=== PATIENT | female | born 1990 | race Caucasian/White ===

== ENCOUNTER → 2017-01-17 | Outpatient (CLI) | payer OTHER ==
[~2017-01-17] MED LIST: ASCA500; CHOLTAB3 PO; FERR325T51 PO; FING1CAP; GADAVIST IV PRN; MELA1TAB5 PO; MODA1TAB PO; SERT50TA PO; b 12 PO
--- NOTE | 2017-01-17 19:41 | DIAGNOSTIC IMAGING REPORT ---
Brain MRI WITH AND WITHOUT CONTRAST HISTORY: Demyelinating disorder G35 Multiple sclerosis TECHNIQUE: Multiplanar multisequence MRI of the brain was performed both before and after the intravenous administration of contrast. COMPARISON STUDY: 07/02/2016 FINDINGS: Multiple foci of increased signal within the periventricular deep white matter regions. Several cortical foci of increased signal are also present. These primarily are stable. There is a new focus of increased signal within the right optic radiations. This shows evidence for postcontrast enhancement. No additional foci of enhancement are appreciated. All remaining foci appear to be generally stable. There is subtle variation in size but the neck appears is one of general stability. IMPRESSION: 1. Multiple foci of increased signal within the periventricular and deep white matter regions throughout both cerebral hemispheres. 2. These are in general stable overall, with a single small focus of new or interval postcontrast enhancement right optic radiations. 3. The appearance therefore is consistent with that of general stability with a new active focus of demyelination on the right . Electronically signed by: Xavier Brown M.D. 01/17/2017 7:39 PM Dictated Date/Time: 01/17/2017 7:32 PM
== END | disposition home or self-care (01) ==
LOC: C.MRI 18:34
PROVIDERS: ATTEND Psychiatry & Neurology Neurology
DX: G35 Multiple sclerosis (principal)

== ENCOUNTER → 2017-05-31 | Outpatient (CLI) | payer OTHER ==
--- NOTE | 2017-05-31 20:00 | DIAGNOSTIC IMAGING REPORT ---
BRAIN COMBO FOR MS HISTORY: Multiple sclerosis G35 Multiple [id number] TECHNIQUE: Multiplanar multisequence MRI of the brain was performed both before and after the intravenous administration of contrast. COMPARISON STUDY: 01/17/2017 FINDINGS: Generally stable exam with multiple foci of increased signal within the periventricular deep white matter regions. These in general appears stable. Current study shows no evidence for abnormal postcontrast enhancement. The enhancing focus previously described no longer enhances. No significant new or interval foci of increased signal. Ventricular system remains midline. Diffusion-weighted images are negative for an acute ischemic focus. IMPRESSION: Stable exam compared to the prior study with no new or interval findings of increased signal. No current evidence for abnormal postcontrast enhancement. The above report was generated using voice recognition software. It may contain grammatical, syntax or spelling errors. Electronically signed by: Xavier Brown M.D. 05/31/2017 7:58 PM Dictated Date/Time: 05/31/2017 7:57 PM
== END | disposition home or self-care (01) ==
LOC: C.MRI 07:06
PROVIDERS: ATTEND Psychiatry & Neurology Neurology
DX: G35 Multiple sclerosis (principal)

== ENCOUNTER 2022-06-09 07:41 | Inpatient (IN) ==
[2022-06-09] MEDS ORDERED: LIDOCAINE 1% LOCAL 20 ML VIAL INFIL PRN (08:14)
[2022-06-09] MEDS ORDERED: OXYTOCIN 30 UNITS/500 ML BAG IV PRN (08:21)
--- NOTE | 2022-06-09 08:41 | Obstetrical Progress Note ---
Date of Service June 09, 2022 Assessment & Plan (1) Mild preeclampsia: (2) Obesity affecting : (3) Gestational hypertension affecting eighth : (4) Encounter for induction of labor: Plan Plan - Patient admitted to labor and delivery for initiation of medical induction of labor - Patient received Richardson bulb placement yesterday, dislodged independently @ 06/08 - Patient is at D/E/S w/ inconsistent contractions, thus oxytocin augmentation of labor will be started per protocol - Once contractions are progressing, will consider ROM - Will anticipate epidural as contractions arise - Labs pending Admission and Anticipated Discharge Date Admission Date: June 09, 2022 Subjective Subjective: Consuelo is a 32 year old female currently 37w2d with PIERRE 06/28/22 based on LMP who is presenting to L&D today for induction of labor 2/2 gestational hypertension. She had a richardson bulb placed last evening which independently dislodged at 10 PM. She notes red-clumps and small amount of brown blood from the vagina since the richardson bulb was placed. She notes that she awakened every hour last night d/t pressure in her back, which is unusual for her. Patient denies headache or visual changes. She also denies any RUQ pain. She endorses ongoing lower extremity swelling and bilateral calf pain. Complications: mild pre-eclampsia, gestational hypertension, obesity Reason for Induction/: gestational hypertension Movement: Present Fluid Loss/ROM: None Bloody show/discharge: Mild, light brown blood and small red clumps from vagina since placement of richardson bulb External FHT and uterine monitor: Category 1, basline 145-150, good FHT variability, accelerations present w/o decelerations Last OB appointment: 06/08, regular care Labs: Blood Type: AB+ Antibody Screen: Negative Hg/Hct: 06/08 11.3/34.3, 06/09 11.5/34.6 WBC/Plt: 06/08 13.89/348, 06/09 13.57/319 Rubella: Immune RPR: Non-reactive Gonorrhea: Negative Chlamydia: Negative HIV: Negative HbSAg: Negative GBS: Negative Cff-DNA: Declined No COVID-19 or Flu vaccines Patient is having a baby girl. Patient and her partner plan to name the baby Brianna Chacon. Review of Systems Review of Systems: ROS: - Denies fever, chills, sweats - Endorses chronic dyspnea, ongoing throughout , w/o pleuritic pain - Denies chest pain, palpitations, or pressure - Denies breast pain - Denies dysuria - Denies headache or visual changes Physical Exam Physical Exam: Physical Exam: General: Alert, oriented. No acute distress. Cardiac: Regular rate and rhythm, no murmurs/rubs/gallops. Respiratory: CTAB, no wheezes/rales/rhonchi. Symmetrical chest rise. No respiratory distress. Abdomen: Gravid abdomen w/o TTP; FHT present Category 1; Position vertex by palpation Pelvic: Dilation _cm; Effacement _; Station _ per Dr Marsh Lower Extremities: 2+ lower extremity edema bilaterally. Calf pain present bilaterally. Daniel's negative bilaterally No rashes, lesions, or ecchymosis. Results & Data ([facility]) Vital Signs (Past 12 Hours) Vital Signs Temp Pulse Resp BP 06/09/22 08:11 36.7 C 103 H 16 123/93 06/09/22 07:51 103 H 123/93 Resident Activity Tracking Resident Involvement: Resident Care Provided Care Provided: OB Delivery
[2022-06-09 08:42] LABS: Hematocrit (blood only) 34.6 % (34.1-44.9); Hemoglobin 11.5 g/dl (12.0-16.0); Mean Corpuscular Hemoglobin 26.6 pg (25.0-34.0); Mean Corpuscular Hgb Conc 33.2 g/dL (32.0-36.0); Mean Corpuscular Volume 79.9 fL (80.0-100.0); Platelet Count 319 K/uL (130-400); RDW Coefficient of Variation 14.1 % (11.5-14.5); RDW Standard Deviation 40.8 fL (36.4-46.3); Red Blood Count 4.33 M/uL (3.93-5.22); White Blood Count 13.57 K/ul (4.8-10.8)
--- NOTE | 2022-06-09 08:57 | History & Physical Report ---
Date of Service June 09, 2022 Assessment & Plan (1) Gestational hypertension: (2) Obesity affecting : (3) Encounter for induction of labor: Plan - Patient admitted to labor and delivery for initiation of medical induction of labor d/t GHTN - Patient received Richardson bulb placement yesterday, dislodged independently @ 1999 - Patient is at 3/50/-2 w/o evidence of occasional small contractions, thus oxytocin augmentation of labor will be started per protocol (2x2) - Once contractions are progressing, will consider ROM - Will anticipate epidural as contractions arise - Labs pending, will check CMP (including LFTs) and Urinalysis Admission and Anticipated Discharge Date Admission Date: June 09, 2022 History of Present Illness Primary Care Provider: Gabriela Cuevas MD Subjective: Consuelo is a 32 year old female currently 37w2d with PIERRE 06/28/22 based on LMP who is presenting to L&D today for induction of labor 2/2 gestational hypertension. She had a richardson bulb placed last evening which independently dislodged at 10 PM. She notes red-clumps and small amount of brown blood from the vagina since the richardson bulb was placed. She notes that she awakened every hour last night d/t pressure in her back, which is unusual for her. Patient denies headache or visual changes. She also denies any RUQ pain. She endorses ongoing lower extremity swelling and bilateral calf pain. Complications: mild pre-eclampsia, gestational hypertension, obesity Reason for Induction/: gestational hypertension Movement: Present Fluid Loss/ROM: None Bloody show/discharge: Mild, light brown blood and small red clumps from vagina since placement of richardson bulb External FHT and uterine monitor: Category 1, baseline 145-150, good FHT variability, accelerations present w/o decelerations Last OB appointment: 06/08, regular care Labs: Blood Type: AB+ Antibody Screen: Negative Hg/Hct: 06/08 11.3/34.3, 06/09 11.5/34.6 WBC/Plt: 06/08 13.89/348, 06/09 13.57/319 Rubella: Immune RPR: Non-reactive Gonorrhea: Negative Chlamydia: Negative HIV: Negative HbSAg: Negative GBS: Negative Cff-DNA: Declined No COVID-19 or Flu vaccines FAMILY COUNSELOR Hx: No history of STD, last pap 1 year ago, no hx of abnormal pap, no prior Patient is having a baby girl. Patient and her partner plan to name the baby Brianna Chacon. Allergies Allergy/AdvReac Type Severity Reaction Status Date / Time bupropion Allergy Headache Verified 06/08/22 15:57 glatiramer (copolymer 1) Allergy heart Verified 06/08/22 15:57 [From Copaxone] palpitations Home Medications Medication Instructions Recorded Confirmed Type prenat.vits,tereso,tyn-hrbj-jfrmy 1 tab PO DAILY 11/11/21 06/08/22 History Patient History Medical History (Updated 06/09/22 @ 09:31 by Kiana Marsh MD) Varicella vaccination Surgical History S/P appendectomy S/P arthroscopic knee surgery Family History Father Diabetes Mother Hypertension Seizure disorder Aunt Lupus Denies family history of Ovarian cancer Breast cancer Colorectal cancer Social History Smoking Status: Never smoker Second Hand Exposure: No; Do You Dip or Chew Tobacco: No; Tobacco Cessation Education Requested by Patient: No Hx Alcohol Use: No Hx Substance Use: No Preferred Language: Telugu Communication Ability: Effective Precision Instrument And Tool Maker Required: No Beliefs That Will Affect Care: None marital status: Single marital status details: partner Erin Urbano (26) [phone] Current Living Situation: Family Current Living Situation Comment: Lives with significant other, Hannah, 4 year old son, 1 dog, and 3 cats current occupational status: employed current occupation: [employer] Other Information That Helps Us Care for You: No Feels Safe at Home: Yes Safety Concerns: Feels Safe At This Time Assistive Devices: Glasses Review of Systems - Denies fever, chills, sweats - Chronic dyspnea, no pleuritic pain - Denies chest pain, palpitations, or pressure - Denies breast pain - Denies dysuria - Denies headache or visual changes - Endorses chronic bilateral calf pain and edema, no acute change Physical Exam Physical Exam: Physical Exam: General: Alert, oriented. No acute distress. Cardiac: Regular rate and rhythm, no murmurs/rubs/gallops. Respiratory: CTAB, no wheezes/rales/rhonchi. Mild increased work of breathing. Symmetrical chest rise. No respiratory distress. Abdomen: Gravid abdomen no TTP; FHTs present Category 1; Position: vertex by abdominal palpation, confirmed via bedside ultrasound Pelvic: Dilation 3 cm; Effacement 50; Station -[address] Marsh Lower Extremities: 2+ lower extremity edema. Superficial TTP of bilateral calves, no deep calf pain. Daniel's negative bilaterally Results & Data ([facility]) Vital Signs (Past 12 Hours) Vital Signs Temp Pulse Resp BP 06/09/22 08:11 36.7 C 103 H 16 123/93 06/09/22 07:51 103 H 123/93 Code Status & VTE Plan Code Status Full Code VTE Prophylaxis Plan VTE Prophylaxis will be ordered: No Supervising Physician Co-Signing Physician Notes Resident Physician Supervision Note: I interviewed and examined the patient. Discussed with Dr. Leggett and agree with findings and plan as documented in the note. Any exceptions or clarifications are listed here: 32 yo G1 at 37 2/7 wga presents for IOL for gestational HTN. +FM; denies reg ctx, LOF, VB. PNI c/b MS, obesity. Richardson bulb out around 10pm last evening. VSS, SVE 3/50/-2, EFW 7-8. BSUS confirms cephalic position. PET labs ordered this AM. Fetus cat 1. Will start pit, GBS neg, epidural PRN Documented By: Kiana Marsh MD Resident Activity Tracking Resident Involvement: Resident Care Provided Care Provided: OB Delivery
[2022-06-09] MEDS: LACTATED RINGER'S 1,000 ML IV PRN ×4 (09:09→23:06)
[2022-06-09] MEDS: OXYTOCIN 30 UNITS/500 ML BAG IV PRN (09:16)
[2022-06-09 10:34] LABS: Albumin Globulin Ratio 1.3 (0.9-2); Albumin Level 3.5 gm/dl (3.4-5.0); BUN Creatinine Ratio 12.9 (10-20); Bilirubin,Total 0.3 mg/dl (0.2-1.0); Calcium 8.9 mg/dl (8.5-10.1); Creatinine Clr Calc Pharmacy 158.1 ml/min; Est GFR (African American) 133.8 ml/min; Est GFR (Non-African American) 115.5 ml/min; Globulin 2.7 gm/dl (2.5-4.0); Potassium 4.2 mmol/L (3.5-5.1); Total Protein 6.2 gm/dl (6.0-8.3)
--- NOTE | 2022-06-09 13:04 | Labor Progress Brief Note ---
Date of Service June 09, 2022 Subjective Occ cramping Assessment & Plan (1) Gestational hypertension: (2) Obesity affecting : (3) Encounter for induction of labor: Plan 32 yo G1 at 37 2/7 wga presents for IOL ghtn VSS Fetus cat 1 Labor - pit at 14, now s/p arom to see if will get contractions stronger gHTN - labs wnl, UPC P. BPs normal to mild range GBS neg epidural PRN Admission and Anticipated Discharge Date Admission Date: June 09, 2022 Physical Exam Genitourinary: Manual OB Exam: + cervical dilation 3 cm, + cervical effacement 50%, + station -2 and + amniotic fluid (arom) clear OB Exam Monitor Tracing: + external FHT monitor used, + external uterine monitor used (q3-4) and + category I (125/mod/+accel/-decel) Results & Data ([facility]) Vital Signs (Past 12 Hours) Vital Signs Temp Pulse Resp BP 06/09/22 08:11 98.1 F 103 H 16 123/93 06/09/22 11:45 98.1 F 06/09/22 12:22 84 136/85 06/09/22 12:07 82 127/92 06/09/22 11:51 80 126/75 06/09/22 11:36 81 131/75 06/09/22 11:22 77 125/83 06/09/22 11:06 82 118/80 06/09/22 10:51 81 129/79 06/09/22 10:37 88 128/72 06/09/22 10:21 82 146/78 H 06/09/22 10:06 82 138/91 06/09/22 09:55 85 146/91 H 06/09/22 07:51 103 H 123/93 Coding Level of Care Code None Diagnoses Gestational hypertension O13.9 Obesity affecting O99.210 Encounter for induction of labor Z34.90
[2022-06-09 13:06] LABS: Creatinine Urine Random 96.4 mg/dl; Protein Creatinine Ratio Urine 0.1 (0-0.2); Total Protein Urine Random 13.4 mg/dl (0-11.9)
[2022-06-09] MEDS ORDERED: ePHEDrine sulfate 50 MG/ML AMP ONE (14:08)
[2022-06-09] MEDS ORDERED: SODIUM CHLORIDE 0.9% INJ 10 ML VIAL ONE (14:08)
[2022-06-09] MEDS ORDERED: BUPIVACAINE 0.25% 30 ML VIAL ONE (14:08)
[2022-06-09] MEDS ORDERED: LIDOCAINE 2%/EPINEPHRINE 1:200,000 20 ML SDV ONE (14:08)
[2022-06-09] MEDS ORDERED: fentaNYL citrate 100 MCG/2 ML VIAL ONE (14:08)
[2022-06-09] MEDS ORDERED: fentaNYL 2MCG/ML ROPIVACAINE 1.25MG/ML 100 ML BAG EPI ONE (14:09)
[2022-06-09] MEDS ORDERED: ePHEDrine sulfate 50 MG/ML AMP IV PRN (14:30)
[2022-06-09] MEDS ORDERED: diphenhydrAMINE 50 MG/ML VIAL IV PRN (14:30)
[2022-06-09] MEDS ORDERED: NALOXONE HCL 0.4 MG/1 ML VIAL/CARP IV PRN (14:30)
[2022-06-09] MEDS ORDERED: ONDANSETRON INJ 2 MG/ML 2 ML VIAL IV PRN (14:30)
[2022-06-09] MEDS ORDERED: NALOXONE HCL 1 MG in SODIUM CHLORIDE 0.9% 1000ML 1,000 ML IV PRN (14:30)
[2022-06-09] MEDS ORDERED: NALBUPHINE HCL INJ 10 MG/ML AMP IV PRN (14:30)
--- NOTE | 2022-06-09 14:34 | Anesthesiology Consultation ---
Date of Service June 09, 2022 Assessment & Plan (1) Encounter for pre-operative examination: Chart Review Chart Review: Acceptable Risk for Labor Epidural Consults Requested none ASA ASA3 Proposed Anesthesia Anesthesia Type: Labor Epidural Risk / Benefits Reviewed With: PT / POA / Parent / Guardian, Accepts Plan and Informed Consent Obtained History Height/Weight Height: 5 ft 4 in Weight: 132.903 kg Allergies Allergy/AdvReac Type Severity Reaction Status Date / Time bupropion Allergy Headache Verified 06/08/22 15:57 glatiramer (copolymer 1) Allergy heart Verified 06/08/22 15:57 [From Copaxone] palpitations Medications Home Medications Medication Instructions Recorded Confirmed Last Taken prenat.vits,tereso,kwu-avjf-jmdgr 1 tab PO DAILY 11/11/21 06/09/22 06/08/22 08:00 Active Medications Generic Name Dose Route Start Last Admin Trade Name Freq PRN Reason Stop Dose Admin Oxytocin 30 units in 500 mls @ 8 mls/hr 06/09/22 08:21 06/09/22 10:50 Pitocin IV 06/11/22 08:20 0.48 units/hr .Q24H PRN 8 mls/hr Labor Induction/Augmentation Titration Protocol 0.48 UNITS/HR Lactated Ringer's 1,000 mls @ 125 mls/hr 06/09/22 08:14 06/09/22 14:19 Lr IV 06/11/22 08:13 999 mls/hr .Q8H PRN Administration L&D Protocol Protocol Past Medical History Medical History Varicella vaccination Exercise / Class Metabolic Activity II 4-5 Yardwork/Stairs/Walk up hill Past Family History Family History Father Diabetes Mother Hypertension Seizure disorder Aunt Lupus Denies family history of Ovarian cancer Breast cancer Colorectal cancer Past Surgical History Surgical History S/P appendectomy S/P arthroscopic knee surgery Past Anesthesia History No Hx of Anesthesia Complications and No Family Hx of Anesthesia Complications History of PONV No Hx of PONV and No Hx of Motion Sickness Social History Smoking Status: Never smoker Do You Dip or Chew Tobacco: No Hx Alcohol Use: No Hx Substance Use: No substance use type: does not use Physical Exam Vital Signs Last Vital Signs Temp 98.1 F 06/09/22 11:45 Pulse 81 06/09/22 14:28 Resp 16 06/09/22 08:11 BP 140/89 06/09/22 14:22 Pulse Ox 99 06/09/22 14:28 ENMT Mouth: no dentition abnormality Thyromental Distance: > or= 3.5 Finger Breadths Mallampati Class: II Neck normal visual inspection Respiratory normal respiratory effort Auscultation: lungs clear to auscultation bilaterally Cardiovascular Rate/Rhythm: regular rate and regular rhythm Testing Laboratory Results 06/09/22 08:22 06/09/22 09:07 Blood Type AB Positive 06/09/22 08:22 Blood Type Cancelled 06/09/22 08:22 Antibody Screen Cancelled 06/09/22 08:22 Antibody Screen NEGATIVE 06/09/22 08:22
--- NOTE | 2022-06-09 17:29 | Labor Progress Brief Note ---
Date of Service June 09, 2022 Subjective Comfortable w/ epidural Assessment & Plan (1) Gestational hypertension: (2) Obesity affecting : (3) Encounter for induction of labor: Plan 32 yo G1 at 37 2/7 wga presents for IOL ghtn VSS Fetus cat 1 Labor - pit at 24, some progression noted. IUPC placed, may need to titrate to 30 if inadequate. Discussed if reach 30 and w/o progression, will consider pitbreak gHTN - labs wnl, UPC wnl. BPs normal to mild range GBS neg epidural in place Admission and Anticipated Discharge Date Admission Date: June 09, 2022 Physical Exam Genitourinary: Manual OB Exam: + cervical dilation 4 cm, + cervical effacement 50% and + station -2 OB Exam Monitor Tracing: + external FHT monitor used, + intra-uterine pressure catheter used (placed, q4) and + category I (130-135/mod/+accel/-decel) Results & Data ([facility]) Vital Signs (Past 12 Hours) Vital Signs Temp Pulse Resp BP Pulse Ox 06/09/22 08:11 98.1 F 103 H 16 123/93 06/09/22 17:23 84 98 06/09/22 17:18 86 134/90 97 06/09/22 17:13 100 H 98 06/09/22 17:08 83 98 06/09/22 17:03 95 H 128/88 99 06/09/22 16:58 86 99 06/09/22 16:53 86 99 06/09/22 16:48 85 97 06/09/22 16:49 80 130/83 06/09/22 16:43 87 97 06/09/22 16:38 85 98 06/09/22 16:35 87 133/77 06/09/22 16:33 90 98 06/09/22 16:28 89 99 06/09/22 16:25 80 100/58 L 06/09/22 16:23 91 H 99 06/09/22 16:24 71 98/65 L 06/09/22 16:18 91 H 99 06/09/22 16:13 88 98 06/09/22 16:08 84 100 06/09/22 16:04 77 125/80 06/09/22 16:03 81 99 06/09/22 15:58 81 99 06/09/22 15:53 95 H 98 06/09/22 15:50 85 127/61 06/09/22 15:48 99 H 99 06/09/22 15:43 88 98 06/09/22 15:38 85 99 06/09/22 15:34 76 123/68 06/09/22 15:33 88 99 06/09/22 15:28 101 H 99 06/09/22 15:23 90 98 06/09/22 15:18 92 H 106/76 99 06/09/22 15:13 86 98 06/09/22 15:08 95 H 99 06/09/22 15:03 99 06/09/22 15:03 101 H 06/09/22 15:03 96 H 101/79 06/09/22 15:00 100 H 98/61 L 06/09/22 14:58 107 H 115/63 99 06/09/22 14:56 92 H 114/57 L 06/09/22 14:54 86 118/75 06/09/22 14:53 94 H 99 06/09/22 14:51 93 H 131/82 06/09/22 14:48 96 H 98 06/09/22 14:49 94 H 130/89 06/09/22 14:46 89 141/91 H 06/09/22 14:43 103 H 99 06/09/22 14:40 90 157/91 H 06/09/22 14:38 90 100 06/09/22 14:36 88 145/98 H 06/09/22 14:33 91 H 100 06/09/22 14:28 81 99 06/09/22 14:23 84 98 06/09/22 14:22 84 140/89 06/09/22 14:07 83 142/82 H 06/09/22 13:52 83 142/81 H 06/09/22 13:38 88 129/96 06/09/22 13:21 90 143/64 H 06/09/22 13:07 86 135/90 06/09/22 11:45 98.1 F 06/09/22 12:22 84 136/85 06/09/22 12:07 82 127/92 06/09/22 11:51 80 126/75 06/09/22 11:36 81 131/75 06/09/22 11:22 77 125/83 06/09/22 11:06 82 118/80 06/09/22 10:51 81 129/79 06/09/22 10:37 88 128/72 06/09/22 10:21 82 146/78 H 06/09/22 10:06 82 138/91 06/09/22 09:55 85 146/91 H 06/09/22 07:51 103 H 123/93 Coding Level of Care Code None Diagnoses Gestational hypertension O13.9 Obesity affecting O99.210 Encounter for induction of labor Z34.90
--- NOTE | 2022-06-09 19:30 | Labor Progress Brief Note ---
Date of Service June 09, 2022 Subjective Comfortable w/ epidural Assessment & Plan (1) Gestational hypertension: (2) Obesity affecting : (3) Encounter for induction of labor: Plan 32 yo G1 at 37 2/7 wga presents for IOL ghtn VSS Fetus cat 1 Labor - pit at 30 and been there for about an hour. SVE unchanged, will give pit break and then restart gHTN - labs wnl, UPC wnl. BPs normal to mild range GBS neg epidural in place Admission and Anticipated Discharge Date Admission Date: June 09, 2022 Physical Exam Genitourinary: Manual OB Exam: + cervical dilation 4 cm, + cervical effacement 50% and + station -2 OB Exam Monitor Tracing: + external FHT monitor used, + intra-uterine pressure catheter used (q3-4, inadequate) and + category I (130/mod/+accel/-decel) Results & Data ([facility]) Vital Signs (Past 12 Hours) Vital Signs Temp Pulse Resp BP Pulse Ox 06/09/22 19:15 98.2 F 18 06/09/22 08:11 98.1 F 103 H 16 123/93 06/09/22 19:23 89 100 06/09/22 19:20 83 106/67 06/09/22 19:18 86 99 06/09/22 19:15 8 L 06/09/22 19:15 98.2 F 8 L 06/09/22 19:13 83 100 06/09/22 19:08 84 99 06/09/22 19:03 84 99 06/09/22 19:04 74 131/61 06/09/22 18:58 87 99 06/09/22 18:53 82 100 06/09/22 18:49 80 131/58 L 06/09/22 18:48 82 100 06/09/22 18:43 85 99 06/09/22 16:30 16 06/09/22 16:30 98.1 F 16 06/09/22 18:30 16 06/09/22 18:30 98.6 F 16 06/09/22 18:38 76 99 06/09/22 18:33 87 99 06/09/22 18:28 91 H 98 06/09/22 18:23 101 H 99 06/09/22 18:18 75 99 06/09/22 18:19 75 136/87 06/09/22 18:13 78 97 06/09/22 18:08 83 97 06/09/22 18:03 80 142/86 H 99 06/09/22 17:58 88 98 06/09/22 17:53 77 98 06/09/22 17:48 78 150/86 H 99 06/09/22 17:43 82 98 06/09/22 17:38 79 97 06/09/22 17:35 80 150/80 H 06/09/22 17:33 80 98 06/09/22 17:28 84 98 06/09/22 17:23 84 98 06/09/22 17:18 86 134/90 97 06/09/22 17:13 100 H 98 06/09/22 17:08 83 98 06/09/22 17:03 95 H 128/88 99 06/09/22 16:58 86 99 06/09/22 16:53 86 99 06/09/22 16:48 85 97 06/09/22 16:49 80 130/83 06/09/22 16:43 87 97 06/09/22 16:38 85 98 06/09/22 16:35 87 133/77 06/09/22 16:33 90 98 06/09/22 16:28 89 99 06/09/22 16:25 80 100/58 L 06/09/22 16:23 91 H 99 06/09/22 16:24 71 98/65 L 06/09/22 16:18 91 H 99 06/09/22 16:13 88 98 06/09/22 16:08 84 100 06/09/22 16:04 77 125/80 06/09/22 16:03 81 99 06/09/22 15:58 81 99 06/09/22 15:53 95 H 98 06/09/22 15:50 85 127/61 06/09/22 15:48 99 H 99 06/09/22 15:43 88 98 06/09/22 15:38 85 99 06/09/22 15:34 76 123/68 06/09/22 15:33 88 99 06/09/22 15:28 101 H 99 06/09/22 15:23 90 98 06/09/22 15:18 92 H 106/76 99 06/09/22 15:13 86 98 06/09/22 15:08 95 H 99 06/09/22 15:03 99 06/09/22 15:03 101 H 06/09/22 15:03 96 H 101/79 06/09/22 15:00 100 H 98/61 L 06/09/22 14:58 107 H 115/63 99 06/09/22 14:56 92 H 114/57 L 06/09/22 14:54 86 118/75 06/09/22 14:53 94 H 99 06/09/22 14:51 93 H 131/82 06/09/22 14:48 96 H 98 06/09/22 14:49 94 H 130/89 06/09/22 14:46 89 141/91 H 06/09/22 14:43 103 H 99 06/09/22 14:40 90 157/91 H 06/09/22 14:38 90 100 06/09/22 14:36 88 145/98 H 06/09/22 14:33 91 H 100 06/09/22 14:28 81 99 06/09/22 14:23 84 98 06/09/22 14:22 84 140/89 06/09/22 14:07 83 142/82 H 06/09/22 13:52 83 142/81 H 06/09/22 13:38 88 129/96 06/09/22 13:21 90 143/64 H 06/09/22 13:07 86 135/90 06/09/22 11:45 98.1 F 06/09/22 12:22 84 136/85 06/09/22 12:07 82 127/92 06/09/22 11:51 80 126/75 06/09/22 11:36 81 131/75 06/09/22 11:22 77 125/83 06/09/22 11:06 82 118/80 06/09/22 10:51 81 129/79 06/09/22 10:37 88 128/72 06/09/22 10:21 82 146/78 H 06/09/22 10:06 82 138/91 06/09/22 09:55 85 146/91 H 06/09/22 07:51 103 H 123/93 Coding Level of Care Code None Diagnoses Gestational hypertension O13.9 Obesity affecting O99.210 Encounter for induction of labor Z34.90
[2022-06-10] MEDS: fentaNYL 2MCG/ML ROPIVACAINE 1.25MG/ML 100 ML BAG EPI PRN ×3 (03:01→15:26)
--- NOTE | 2022-06-10 04:39 | Labor Progress Brief Note ---
Date of Service June 10, 2022 Subjective Comfortable w/ epidural Assessment & Plan (1) Gestational hypertension: (2) Obesity affecting : (3) Encounter for induction of labor: Plan 32 yo G1 at 37 2/7 wga presents for IOL ghtn VSS Fetus cat 1 Labor - pit at 22. There is progression in station noted certainly on this exam, dilation is unchanged. Discussed that with her GA, BMI, she may just require higher amounts of pitocin for longer periods of time to get her into labor which I don't think we have done yet. Discussed getting to pit of 30 to try to get her adequate with IUPC in. Discussed hope for continued change but there is possibility that still won't be enough to effect cervical change at that level and if unable to get change to happen, that may change recommendation for mode of delivery. Discussed option to elect for CS as well but she is amenable to continuing induction which I think is reasonable. Will continue pit induction gHTN - labs wnl, UPC wnl. BPs normal to mild range GBS neg epidural in place Admission and Anticipated Discharge Date Admission Date: June 09, 2022 Physical Exam Genitourinary: Manual OB Exam: + cervical dilation 4 cm, + cervical effacement 50% and + station -2 (progress is noted from my last exam) OB Exam Monitor Tracing: + external FHT monitor used, + intra-uterine pressure catheter used (q3-4, inadequate) and + category I (130/mod/+accel/-decel) Results & Data ([facility]) Vital Signs (Past 12 Hours) Vital Signs Temp Pulse Resp BP Pulse Ox 06/10/22 04:28 96 H 99 06/10/22 04:23 94 H 100 06/10/22 04:18 95 H 109/75 99 06/10/22 04:13 86 99 06/10/22 04:00 18 06/10/22 04:00 18 06/10/22 04:08 89 99 06/10/22 04:03 107 H 100 06/10/22 03:58 89 98 06/10/22 02:00 18 06/10/22 02:00 98.4 F 18 06/10/22 03:30 18 06/10/22 03:30 18 06/10/22 03:53 86 97 06/10/22 03:48 98 06/10/22 03:48 81 06/10/22 03:48 83 127/84 06/10/22 03:43 84 97 06/10/22 03:38 90 97 06/10/22 03:34 82 121/83 06/10/22 03:33 79 97 06/10/22 03:28 81 96 06/10/22 03:23 86 97 06/10/22 03:19 78 132/74 06/10/22 03:00 18 06/10/22 03:00 18 06/10/22 03:18 82 97 06/10/22 03:13 101 H 98 06/10/22 03:08 96 H 97 06/10/22 03:03 89 126/79 97 06/10/22 02:58 84 97 06/10/22 02:53 85 97 06/10/22 02:48 81 121/71 98 06/10/22 02:43 79 98 06/10/22 02:38 90 99 06/10/22 02:33 82 97 06/10/22 02:34 79 118/61 06/10/22 02:28 84 97 06/10/22 02:23 80 97 06/10/22 02:18 89 119/80 98 06/10/22 02:13 90 97 06/10/22 02:08 79 98 06/10/22 02:00 18 06/10/22 02:00 98.4 F 18 06/10/22 02:03 82 98 06/10/22 02:04 82 131/81 06/09/22 19:15 98.2 F 18 06/10/22 01:58 88 97 06/10/22 01:53 84 98 06/10/22 01:50 80 111/70 06/10/22 01:48 86 98 06/10/22 01:43 81 98 06/10/22 01:38 105 H 98 06/10/22 01:33 81 99 06/10/22 01:34 82 130/63 06/10/22 01:28 80 96 06/10/22 01:23 95 H 99 06/10/22 01:21 81 106/62 06/10/22 01:18 74 98 06/10/22 01:13 73 98 06/10/22 01:08 72 97 06/10/22 01:00 18 06/10/22 01:00 18 06/10/22 01:04 80 113/60 06/10/22 01:03 80 98 06/10/22 00:58 76 98 06/10/22 00:53 74 98 06/10/22 00:48 76 98 06/10/22 00:43 81 97 06/10/22 00:30 18 06/10/22 00:30 18 06/10/22 00:38 79 97 06/10/22 00:35 75 100/56 L 06/10/22 00:33 78 98 06/10/22 00:28 79 97 06/10/22 00:23 81 98 06/10/22 00:19 82 123/59 L 06/10/22 00:18 85 99 06/10/22 00:13 89 99 06/10/22 00:08 92 H 99 06/10/22 00:04 85 123/73 06/10/22 00:03 90 98 06/10/22 00:00 18 06/10/22 00:00 18 06/09/22 23:58 102 H 99 06/09/22 23:53 80 97 06/09/22 23:48 87 118/60 98 06/09/22 23:43 82 97 06/09/22 23:38 83 97 06/09/22 23:33 91 H 127/81 98 06/09/22 23:28 92 H 97 06/09/22 23:23 89 97 06/09/22 23:18 91 H 124/71 97 06/09/22 23:13 92 H 97 06/09/22 23:08 91 H 97 06/09/22 23:04 88 120/70 06/09/22 23:00 18 06/09/22 23:00 98.2 F 18 06/09/22 23:03 87 97 06/09/22 22:58 92 H 97 06/09/22 22:53 85 97 06/09/22 22:48 98 06/09/22 22:48 84 06/09/22 22:48 85 125/71 06/09/22 22:43 90 97 06/09/22 22:38 89 97 06/09/22 22:30 18 06/09/22 22:30 18 06/09/22 22:33 81 125/61 98 06/09/22 22:28 88 97 06/09/22 22:23 99 H 97 06/09/22 22:18 97 06/09/22 22:18 85 06/09/22 22:18 86 128/62 06/09/22 22:13 89 96 06/09/22 22:08 87 97 06/09/22 22:04 76 132/72 06/09/22 22:03 76 97 06/09/22 21:58 78 96 06/09/22 21:53 87 96 06/09/22 21:30 18 06/09/22 21:30 18 06/09/22 21:48 97 06/09/22 21:48 88 06/09/22 21:48 88 122/81 06/09/22 21:43 93 H 98 06/09/22 21:00 18 06/09/22 21:00 18 06/09/22 21:38 80 97 06/09/22 21:33 80 131/80 98 06/09/22 21:28 80 98 06/09/22 21:23 109 H 98 06/09/22 21:19 88 132/75 06/09/22 21:18 87 98 06/09/22 21:13 81 98 06/09/22 21:08 80 99 06/09/22 21:03 81 132/87 98 06/09/22 20:58 92 H 98 06/09/22 20:53 87 99 06/09/22 20:48 87 134/89 99 06/09/22 20:43 89 99 06/09/22 20:30 18 06/09/22 20:30 18 06/09/22 20:38 99 H 99 06/09/22 20:33 90 99 06/09/22 20:28 101 H 99 06/09/22 20:23 100 H 98 06/09/22 20:18 90 113/74 99 06/09/22 20:00 18 06/09/22 20:00 18 06/09/22 20:13 90 98 06/09/22 20:08 94 H 98 06/09/22 20:03 97 H 99 06/09/22 19:58 86 98 06/09/22 19:53 87 99 06/09/22 19:48 83 99 06/09/22 19:43 86 99 06/09/22 19:38 80 99 06/09/22 19:33 72 99 06/09/22 19:28 88 99 06/09/22 19:23 89 100 06/09/22 19:20 83 106/67 06/09/22 19:18 86 99 06/09/22 19:15 8 L 06/09/22 19:15 98.2 F 8 L 06/09/22 19:13 83 100 06/09/22 19:08 84 99 06/09/22 19:03 84 99 06/09/22 19:04 74 131/61 06/09/22 18:58 87 99 06/09/22 18:53 82 100 06/09/22 18:49 80 131/58 L 06/09/22 18:48 82 100 06/09/22 18:43 85 99 06/09/22 18:30 16 06/09/22 18:30 98.6 F 16 06/09/22 18:38 76 99 06/09/22 18:33 87 99 06/09/22 18:28 91 H 98 06/09/22 18:23 101 H 99 06/09/22 18:18 75 99 06/09/22 18:19 75 136/87 06/09/22 18:13 78 97 06/09/22 18:08 83 97 06/09/22 18:03 80 142/86 H 99 06/09/22 17:58 88 98 06/09/22 17:53 77 98 06/09/22 17:48 78 150/86 H 99 06/09/22 17:43 82 98 06/09/22 17:38 79 97 06/09/22 17:35 80 150/80 H 06/09/22 17:33 80 98 06/09/22 17:28 84 98 06/09/22 17:23 84 98 06/09/22 17:18 86 134/90 97 06/09/22 17:13 100 H 98 06/09/22 17:08 83 98 06/09/22 17:03 95 H 128/88 99 06/09/22 16:58 86 99 06/09/22 16:53 86 99 06/09/22 16:48 85 97 06/09/22 16:49 80 130/83 06/09/22 16:43 87 97 06/09/22 16:38 85 98 06/09/22 16:35 87 133/77 06/09/22 16:33 90 98 Coding Level of Care Code None Diagnoses Gestational hypertension O13.9 Obesity affecting O99.210 Encounter for induction of labor Z34.90
[2022-06-10] MEDS ORDERED: BUPIVACAINE 0.25% 30 ML VIAL ONE (04:58)
[2022-06-10] MEDS ORDERED: fentaNYL citrate 100 MCG/2 ML VIAL ONE (04:59)
--- NOTE | 2022-06-10 05:15 | Communication Note ---
Date of Service: June 10, 2022 Patient stated having increasing labor pains. The epidural was bolused with fentanyl 75mcg and 4mL of 0.25% bupivacaine. The patient stated having improved labor pains. VSS throughout.
[2022-06-10] MEDS ORDERED: NURSING L&D Epidural Breakthrough Pain Update ONE ×2 (05:20→12:01)
--- NOTE | 2022-06-10 07:20 | Labor Progress Brief Note ---
Date of Service June 10, 2022 Subjective Feeling better after redose Assessment & Plan (1) Gestational hypertension: (2) Obesity affecting : (3) Encounter for induction of labor: Plan 32 yo G1 at 37 2/7 wga presents for IOL ghtn VSS Fetus cat 1 Labor - pit at just turned to 30, cervix is thinning out now so continue augmentation. Will seewhat contraction pattern does now that this has just been upped gHTN - labs wnl, UPC wnl. BPs normal to mild range GBS neg epidural in place Admission and Anticipated Discharge Date Admission Date: June 09, 2022 Physical Exam Genitourinary: Manual OB Exam: + cervical dilation 4 cm, + cervical effacement 70% and + station -2 (progress is noted from my last exam) OB Exam Monitor Tracing: + scalp electrode used, + intra-uterine pressure catheter used (q3, inadequate but contraction strength is improving) and + category I (125/mod/+accel/-decel) Results & Data ([facility]) Vital Signs (Past 12 Hours) Vital Signs Temp Pulse Resp BP Pulse Ox 06/10/22 07:13 98 06/10/22 07:13 96 H 06/10/22 07:13 89 121/56 L 06/10/22 07:08 91 H 99 06/10/22 07:03 92 H 98 06/10/22 06:58 89 99 06/10/22 06:53 97 H 97 06/10/22 06:48 96 H 98 06/10/22 06:49 95 H 118/88 06/10/22 06:43 86 97 06/10/22 06:38 90 97 06/10/22 06:34 84 113/69 06/10/22 06:33 89 97 06/10/22 06:28 91 H 97 06/10/22 06:00 18 06/10/22 06:00 98.4 F 18 06/10/22 06:23 87 97 06/10/22 06:18 95 H 113/75 97 06/10/22 06:13 83 97 06/10/22 06:08 89 97 06/10/22 06:03 87 113/73 98 06/10/22 05:58 85 97 06/10/22 05:30 18 06/10/22 05:30 18 06/10/22 05:53 89 96 06/10/22 05:00 18 06/10/22 05:00 18 06/10/22 05:48 95 H 98 06/10/22 05:49 91 H 112/68 06/10/22 05:43 90 97 06/10/22 05:38 87 96 06/10/22 05:33 89 119/59 L 98 06/10/22 05:28 88 98 06/10/22 05:23 91 H 98 06/10/22 05:18 88 97 06/10/22 05:19 93 H 129/63 06/10/22 05:15 83 134/92 06/10/22 05:13 87 96 06/10/22 05:08 84 98 06/10/22 05:06 145/93 H 06/10/22 05:03 88 99 06/10/22 04:58 89 98 06/10/22 04:53 89 98 06/10/22 04:48 86 132/81 97 06/10/22 04:43 87 99 06/10/22 04:30 18 06/10/22 04:30 18 06/10/22 04:38 90 100 06/10/22 04:34 89 134/77 06/10/22 04:33 91 H 99 06/10/22 04:28 96 H 99 06/10/22 04:23 94 H 100 06/10/22 04:18 95 H 109/75 99 06/10/22 04:13 86 99 06/10/22 04:00 18 06/10/22 04:00 18 06/10/22 04:08 89 99 06/10/22 04:03 107 H 100 06/10/22 03:58 89 98 06/10/22 02:00 18 06/10/22 02:00 98.4 F 18 06/10/22 03:30 18 06/10/22 03:30 18 06/10/22 03:53 86 97 06/10/22 03:48 98 06/10/22 03:48 81 06/10/22 03:48 83 127/84 06/10/22 03:43 84 97 06/10/22 03:38 90 97 06/10/22 03:34 82 121/83 06/10/22 03:33 79 97 06/10/22 03:28 81 96 06/10/22 03:23 86 97 06/10/22 03:19 78 132/74 06/10/22 03:00 18 06/10/22 03:00 18 06/10/22 03:18 82 97 06/10/22 03:13 101 H 98 06/10/22 03:08 96 H 97 06/10/22 03:03 89 126/79 97 06/10/22 02:58 84 97 06/10/22 02:53 85 97 06/10/22 02:48 81 121/71 98 06/10/22 02:43 79 98 06/10/22 02:38 90 99 06/10/22 02:33 82 97 06/10/22 02:34 79 118/61 06/10/22 02:28 84 97 06/10/22 02:23 80 97 06/10/22 02:18 89 119/80 98 06/10/22 02:13 90 97 06/10/22 02:08 79 98 06/10/22 02:00 18 06/10/22 02:00 98.4 F 18 06/10/22 02:03 82 98 06/10/22 02:04 82 131/81 06/10/22 01:58 88 97 06/10/22 01:53 84 98 06/10/22 01:50 80 111/70 06/10/22 01:48 86 98 06/10/22 01:43 81 98 06/10/22 01:38 105 H 98 06/10/22 01:33 81 99 06/10/22 01:34 82 130/63 06/10/22 01:28 80 96 06/10/22 01:23 95 H 99 06/10/22 01:21 81 106/62 06/10/22 01:18 74 98 06/10/22 01:13 73 98 06/10/22 01:08 72 97 06/10/22 01:00 18 06/10/22 01:00 18 06/10/22 01:04 80 113/60 06/10/22 01:03 80 98 06/10/22 00:58 76 98 06/10/22 00:53 74 98 06/10/22 00:48 76 98 06/10/22 00:43 81 97 06/10/22 00:30 18 06/10/22 00:30 18 06/10/22 00:38 79 97 06/10/22 00:35 75 100/56 L 06/10/22 00:33 78 98 06/10/22 00:28 79 97 06/10/22 00:23 81 98 06/10/22 00:19 82 123/59 L 06/10/22 00:18 85 99 06/10/22 00:13 89 99 06/10/22 00:08 92 H 99 06/10/22 00:04 85 123/73 06/10/22 00:03 90 98 06/10/22 00:00 18 06/10/22 00:00 18 06/09/22 23:58 102 H 99 06/09/22 23:53 80 97 06/09/22 23:48 87 118/60 98 06/09/22 23:43 82 97 06/09/22 23:38 83 97 06/09/22 23:33 91 H 127/81 98 06/09/22 23:28 92 H 97 06/09/22 23:23 89 97 06/09/22 23:18 91 H 124/71 97 06/09/22 23:13 92 H 97 06/09/22 23:08 91 H 97 06/09/22 23:04 88 120/70 06/09/22 23:00 18 06/09/22 23:00 98.2 F 18 06/09/22 23:03 87 97 06/09/22 22:58 92 H 97 06/09/22 22:53 85 97 06/09/22 22:48 98 06/09/22 22:48 84 06/09/22 22:48 85 125/71 06/09/22 22:43 90 97 06/09/22 22:38 89 97 06/09/22 22:30 18 06/09/22 22:30 18 06/09/22 22:33 81 125/61 98 06/09/22 22:28 88 97 06/09/22 22:23 99 H 97 06/09/22 22:18 97 06/09/22 22:18 85 06/09/22 22:18 86 128/62 06/09/22 22:13 89 96 06/09/22 22:08 87 97 06/09/22 22:04 76 132/72 06/09/22 22:03 76 97 06/09/22 21:58 78 96 06/09/22 21:53 87 96 06/09/22 21:30 18 06/09/22 21:30 18 06/09/22 21:48 97 06/09/22 21:48 88 06/09/22 21:48 88 122/81 06/09/22 21:43 93 H 98 06/09/22 21:00 18 06/09/22 21:00 18 06/09/22 21:38 80 97 06/09/22 21:33 80 131/80 98 06/09/22 21:28 80 98 06/09/22 21:23 109 H 98 06/09/22 21:19 88 132/75 06/09/22 21:18 87 98 06/09/22 21:13 81 98 06/09/22 21:08 80 99 06/09/22 21:03 81 132/87 98 06/09/22 20:58 92 H 98 06/09/22 20:53 87 99 06/09/22 20:48 87 134/89 99 06/09/22 20:43 89 99 06/09/22 20:30 18 06/09/22 20:30 18 06/09/22 20:38 99 H 99 06/09/22 20:33 90 99 06/09/22 20:28 101 H 99 06/09/22 20:23 100 H 98 06/09/22 20:18 90 113/74 99 06/09/22 20:00 18 06/09/22 20:00 18 06/09/22 20:13 90 98 06/09/22 20:08 94 H 98 06/09/22 20:03 97 H 99 06/09/22 19:58 86 98 06/09/22 19:53 87 99 06/09/22 19:48 83 99 06/09/22 19:43 86 99 06/09/22 19:38 80 99 06/09/22 19:33 72 99 06/09/22 19:28 88 99 06/09/22 19:23 89 100 06/09/22 19:20 83 106/67 06/09/22 19:18 86 99 Coding Level of Care Code None Diagnoses Gestational hypertension O13.9 Obesity affecting O99.210 Encounter for induction of labor Z34.90
--- NOTE | 2022-06-10 07:48 | Labor Progress Brief Note ---
Date of Service June 10, 2022 Subjective pt comfortable. pit at 30 Assessment & Plan (1) Encounter for induction of labor: (2) Gestational hypertension: Plan per Dr Marsh, cervix feels more favorable at last exam. pit at 30, discussed increasing pit max and if achieved the can try halving pit. currently status stable, fhts categ 1. mvu's inadeq. pt desires to proceed. pt aware I am taking over care. Admission and Anticipated Discharge Date Admission Date: June 09, 2022 Physical Exam Constitutional: WD/WN, vitals as above Genitourinary: OB Exam Monitor Tracing: + external FHT monitor used, + scalp electrode used, + intra-uterine pressure catheter used (q2.5 mvus inadeq) and + category I Results & Data ([facility]) Vital Signs (Past 12 Hours) Vital Signs Temp Pulse Resp BP Pulse Ox 06/10/22 07:15 18 06/10/22 07:20 98.4 F 06/10/22 07:43 94 H 100 06/10/22 07:38 86 99 06/10/22 07:35 83 116/65 06/10/22 07:33 87 99 06/10/22 07:31 82 117/68 06/10/22 07:28 84 99 06/10/22 07:00 22 06/10/22 07:00 22 06/10/22 07:23 84 98 06/10/22 07:18 88 98 06/10/22 07:13 98 06/10/22 07:13 96 H 06/10/22 07:13 89 121/56 L 06/10/22 07:08 91 H 99 06/10/22 07:03 92 H 98 06/10/22 06:58 89 99 06/10/22 06:53 97 H 97 06/10/22 06:48 96 H 98 06/10/22 06:49 95 H 118/88 06/10/22 06:43 86 97 06/10/22 06:38 90 97 06/10/22 06:34 84 113/69 06/10/22 06:33 89 97 06/10/22 06:28 91 H 97 06/10/22 06:00 18 06/10/22 06:00 98.4 F 18 06/10/22 06:23 87 97 06/10/22 06:18 95 H 113/75 97 06/10/22 06:13 83 97 06/10/22 06:08 89 97 06/10/22 06:03 87 113/73 98 06/10/22 05:58 85 97 06/10/22 05:30 18 06/10/22 05:30 18 06/10/22 05:53 89 96 06/10/22 05:00 18 06/10/22 05:00 18 06/10/22 05:48 95 H 98 06/10/22 05:49 91 H 112/68 06/10/22 05:43 90 97 06/10/22 05:38 87 96 06/10/22 05:33 89 119/59 L 98 06/10/22 05:28 88 98 06/10/22 05:23 91 H 98 06/10/22 05:18 88 97 06/10/22 05:19 93 H 129/63 06/10/22 05:15 83 134/92 06/10/22 05:13 87 96 06/10/22 05:08 84 98 06/10/22 05:06 145/93 H 06/10/22 05:03 88 99 06/10/22 04:58 89 98 06/10/22 04:53 89 98 06/10/22 04:48 86 132/81 97 06/10/22 04:43 87 99 06/10/22 04:30 18 06/10/22 04:30 18 06/10/22 04:38 90 100 06/10/22 04:34 89 134/77 06/10/22 04:33 91 H 99 06/10/22 04:28 96 H 99 06/10/22 04:23 94 H 100 06/10/22 04:18 95 H 109/75 99 06/10/22 04:13 86 99 06/10/22 04:00 18 06/10/22 04:00 18 06/10/22 04:08 89 99 06/10/22 04:03 107 H 100 06/10/22 03:58 89 98 06/10/22 02:00 18 06/10/22 02:00 98.4 F 18 06/10/22 03:30 18 06/10/22 03:30 18 06/10/22 03:53 86 97 06/10/22 03:48 98 06/10/22 03:48 81 06/10/22 03:48 83 127/84 06/10/22 03:43 84 97 06/10/22 03:38 90 97 06/10/22 03:34 82 121/83 06/10/22 03:33 79 97 06/10/22 03:28 81 96 06/10/22 03:23 86 97 06/10/22 03:19 78 132/74 06/10/22 03:00 18 06/10/22 03:00 18 06/10/22 03:18 82 97 06/10/22 03:13 101 H 98 06/10/22 03:08 96 H 97 06/10/22 03:03 89 126/79 97 06/10/22 02:58 84 97 06/10/22 02:53 85 97 06/10/22 02:48 81 121/71 98 06/10/22 02:43 79 98 06/10/22 02:38 90 99 06/10/22 02:33 82 97 06/10/22 02:34 79 118/61 06/10/22 02:28 84 97 06/10/22 02:23 80 97 06/10/22 02:18 89 119/80 98 06/10/22 02:13 90 97 06/10/22 02:08 79 98 06/10/22 02:00 18 06/10/22 02:00 98.4 F 18 06/10/22 02:03 82 98 06/10/22 02:04 82 131/81 06/10/22 01:58 88 97 06/10/22 01:53 84 98 06/10/22 01:50 80 111/70 06/10/22 01:48 86 98 06/10/22 01:43 81 98 06/10/22 01:38 105 H 98 06/10/22 01:33 81 99 06/10/22 01:34 82 130/63 06/10/22 01:28 80 96 06/10/22 01:23 95 H 99 06/10/22 01:21 81 106/62 06/10/22 01:18 74 98 06/10/22 01:13 73 98 06/10/22 01:08 72 97 06/10/22 01:00 18 06/10/22 01:00 18 06/10/22 01:04 80 113/60 06/10/22 01:03 80 98 06/10/22 00:58 76 98 06/10/22 00:53 74 98 06/10/22 00:48 76 98 06/10/22 00:43 81 97 06/10/22 00:30 18 06/10/22 00:30 18 06/10/22 00:38 79 97 06/10/22 00:35 75 100/56 L 06/10/22 00:33 78 98 06/10/22 00:28 79 97 06/10/22 00:23 81 98 06/10/22 00:19 82 123/59 L 06/10/22 00:18 85 99 06/10/22 00:13 89 99 06/10/22 00:08 92 H 99 06/10/22 00:04 85 123/73 06/10/22 00:03 90 98 06/10/22 00:00 18 06/10/22 00:00 18 06/09/22 23:58 102 H 99 06/09/22 23:53 80 97 06/09/22 23:48 87 118/60 98 06/09/22 23:43 82 97 06/09/22 23:38 83 97 06/09/22 23:33 91 H 127/81 98 06/09/22 23:28 92 H 97 06/09/22 23:23 89 97 06/09/22 23:18 91 H 124/71 97 06/09/22 23:13 92 H 97 06/09/22 23:08 91 H 97 06/09/22 23:04 88 120/70 06/09/22 23:00 18 06/09/22 23:00 98.2 F 18 06/09/22 23:03 87 97 06/09/22 22:58 92 H 97 06/09/22 22:53 85 97 06/09/22 22:48 98 06/09/22 22:48 84 06/09/22 22:48 85 125/71 06/09/22 22:43 90 97 06/09/22 22:38 89 97 06/09/22 22:30 18 06/09/22 22:30 18 06/09/22 22:33 81 125/61 98 06/09/22 22:28 88 97 06/09/22 22:23 99 H 97 06/09/22 22:18 97 06/09/22 22:18 85 06/09/22 22:18 86 128/62 06/09/22 22:13 89 96 06/09/22 22:08 87 97 06/09/22 22:04 76 132/72 06/09/22 22:03 76 97 06/09/22 21:58 78 96 06/09/22 21:53 87 96 06/09/22 21:30 18 06/09/22 21:30 18 06/09/22 21:48 97 06/09/22 21:48 88 06/09/22 21:48 88 122/81 06/09/22 21:43 93 H 98 06/09/22 21:00 18 06/09/22 21:00 18 06/09/22 21:38 80 97 06/09/22 21:33 80 131/80 98 06/09/22 21:28 80 98 06/09/22 21:23 109 H 98 06/09/22 21:19 88 132/75 06/09/22 21:18 87 98 06/09/22 21:13 81 98 06/09/22 21:08 80 99 06/09/22 21:03 81 132/87 98 06/09/22 20:58 92 H 98 06/09/22 20:53 87 99 06/09/22 20:48 87 134/89 99 06/09/22 20:43 89 99 06/09/22 20:30 18 06/09/22 20:30 18 06/09/22 20:38 99 H 99 06/09/22 20:33 90 99 06/09/22 20:28 101 H 99 06/09/22 20:23 100 H 98 06/09/22 20:18 90 113/74 99 06/09/22 20:00 18 06/09/22 20:00 18 06/09/22 20:13 90 98 06/09/22 20:08 94 H 98 06/09/22 20:03 97 H 99 06/09/22 19:58 86 98 06/09/22 19:53 87 99 06/09/22 19:48 83 99 Coding Level of Care Code None Diagnoses Encounter for induction of labor Z34.90 Gestational hypertension O13.9
[2022-06-10] MEDS: LACTATED RINGER'S 1,000 ML IV PRN ×2 (08:03→15:28)
--- NOTE | 2022-06-10 09:22 | Labor Progress Brief Note ---
Date of Service June 10, 2022 Subjective comfortable with epidural Assessment & Plan (1) Encounter for induction of labor: (2) Gestational hypertension: Plan reviewed findings with couple. some cx change and progress noted. with ctx cephalic comes into pelvis. rec c/w pit. fhts categ 1. they are agreeable and desire to proceed. Admission and Anticipated Discharge Date Admission Date: June 09, 2022 Physical Exam Constitutional: WD/WN, vitals as above Genitourinary: Manual OB Exam: + cervical dilation 6 cm, + cervical effacement 80% and + station (with ctx. ) -1 OB Exam Monitor Tracing: + scalp electrode used, + intra-uterine pressure catheter used (mvu's inadeq, pit at 36. ), + category I and + normal FHT variability Results & Data ([facility]) Vital Signs (Past 12 Hours) Vital Signs Temp Pulse Resp BP Pulse Ox 06/10/22 07:15 18 06/10/22 07:20 98.4 F 06/10/22 09:18 92 H 98 06/10/22 09:10 98.2 F 06/10/22 09:13 92 H 98 06/10/22 09:08 95 H 98 06/10/22 09:04 85 121/90 06/10/22 09:03 88 98 06/10/22 08:58 89 97 06/10/22 08:53 87 98 06/10/22 08:48 83 118/83 97 06/10/22 08:43 85 97 06/10/22 08:38 90 98 06/10/22 08:33 84 113/78 97 06/10/22 08:28 87 98 06/10/22 08:23 87 98 06/10/22 08:18 90 120/80 99 06/10/22 08:00 18 06/10/22 08:00 18 06/10/22 08:13 88 99 06/10/22 08:08 91 H 99 06/10/22 08:03 92 H 117/79 99 06/10/22 07:58 100 H 99 06/10/22 07:53 89 99 06/10/22 07:48 95 H 99 06/10/22 07:43 94 H 100 06/10/22 07:38 86 99 06/10/22 07:35 83 116/65 06/10/22 07:33 87 99 06/10/22 07:31 82 117/68 06/10/22 07:28 84 99 06/10/22 07:00 22 06/10/22 07:00 22 06/10/22 07:23 84 98 06/10/22 07:18 88 98 06/10/22 07:13 98 06/10/22 07:13 96 H 06/10/22 07:13 89 121/56 L 06/10/22 07:08 91 H 99 06/10/22 07:03 92 H 98 06/10/22 06:58 89 99 06/10/22 06:53 97 H 97 06/10/22 06:48 96 H 98 06/10/22 06:49 95 H 118/88 06/10/22 06:43 86 97 06/10/22 06:38 90 97 06/10/22 06:34 84 113/69 06/10/22 06:33 89 97 06/10/22 06:28 91 H 97 06/10/22 06:00 18 06/10/22 06:00 98.4 F 18 06/10/22 06:23 87 97 06/10/22 06:18 95 H 113/75 97 06/10/22 06:13 83 97 06/10/22 06:08 89 97 06/10/22 06:03 87 113/73 98 06/10/22 05:58 85 97 06/10/22 05:30 18 06/10/22 05:30 18 06/10/22 05:53 89 96 06/10/22 05:00 18 06/10/22 05:00 18 06/10/22 05:48 95 H 98 06/10/22 05:49 91 H 112/68 06/10/22 05:43 90 97 06/10/22 05:38 87 96 06/10/22 05:33 89 119/59 L 98 06/10/22 05:28 88 98 06/10/22 05:23 91 H 98 06/10/22 05:18 88 97 06/10/22 05:19 93 H 129/63 06/10/22 05:15 83 134/92 06/10/22 05:13 87 96 06/10/22 05:08 84 98 06/10/22 05:06 145/93 H 06/10/22 05:03 88 99 06/10/22 04:58 89 98 06/10/22 04:53 89 98 06/10/22 04:48 86 132/81 97 06/10/22 04:43 87 99 06/10/22 04:30 18 06/10/22 04:30 18 06/10/22 04:38 90 100 06/10/22 04:34 89 134/77 06/10/22 04:33 91 H 99 06/10/22 04:28 96 H 99 06/10/22 04:23 94 H 100 06/10/22 04:18 95 H 109/75 99 06/10/22 04:13 86 99 06/10/22 04:00 18 06/10/22 04:00 18 06/10/22 04:08 89 99 06/10/22 04:03 107 H 100 06/10/22 03:58 89 98 06/10/22 02:00 18 06/10/22 02:00 98.4 F 18 06/10/22 03:30 18 06/10/22 03:30 18 06/10/22 03:53 86 97 06/10/22 03:48 98 06/10/22 03:48 81 06/10/22 03:48 83 127/84 06/10/22 03:43 84 97 06/10/22 03:38 90 97 06/10/22 03:34 82 121/83 06/10/22 03:33 79 97 06/10/22 03:28 81 96 06/10/22 03:23 86 97 06/10/22 03:19 78 132/74 06/10/22 03:00 18 06/10/22 03:00 18 06/10/22 03:18 82 97 06/10/22 03:13 101 H 98 06/10/22 03:08 96 H 97 06/10/22 03:03 89 126/79 97 06/10/22 02:58 84 97 06/10/22 02:53 85 97 06/10/22 02:48 81 121/71 98 06/10/22 02:43 79 98 06/10/22 02:38 90 99 06/10/22 02:33 82 97 06/10/22 02:34 79 118/61 06/10/22 02:28 84 97 06/10/22 02:23 80 97 06/10/22 02:18 89 119/80 98 06/10/22 02:13 90 97 06/10/22 02:08 79 98 06/10/22 02:00 18 06/10/22 02:00 98.4 F 18 06/10/22 02:03 82 98 06/10/22 02:04 82 131/81 06/10/22 01:58 88 97 06/10/22 01:53 84 98 06/10/22 01:50 80 111/70 06/10/22 01:48 86 98 06/10/22 01:43 81 98 06/10/22 01:38 105 H 98 06/10/22 01:33 81 99 06/10/22 01:34 82 130/63 06/10/22 01:28 80 96 06/10/22 01:23 95 H 99 06/10/22 01:21 81 106/62 06/10/22 01:18 74 98 06/10/22 01:13 73 98 06/10/22 01:08 72 97 06/10/22 01:00 18 06/10/22 01:00 06/10/22 01:04 80 113/60 06/10/22 01:03 80 98 06/10/22 00:58 76 98 06/10/22 00:53 74 98 06/10/22 00:48 76 98 06/10/22 00:43 81 97 06/10/22 00:30 18 06/10/22 00:30 18 06/10/22 00:38 79 97 06/10/22 00:35 75 100/56 L 06/10/22 00:33 78 98 06/10/22 00:28 79 97 06/10/22 00:23 81 98 06/10/22 00:19 82 123/59 L 06/10/22 00:18 85 99 06/10/22 00:13 89 99 06/10/22 00:08 92 H 99 06/10/22 00:04 85 123/73 06/10/22 00:03 90 98 06/10/22 00:00 18 06/10/22 00:00 18 06/09/22 23:58 102 H 99 06/09/22 23:53 80 97 06/09/22 23:48 87 118/60 98 06/09/22 23:43 82 97 06/09/22 23:38 83 97 06/09/22 23:33 91 H 127/81 98 06/09/22 23:28 92 H 97 06/09/22 23:23 89 97 06/09/22 23:18 91 H 124/71 97 06/09/22 23:13 92 H 97 06/09/22 23:08 91 H 97 06/09/22 23:04 88 120/70 06/09/22 23:00 18 06/09/22 23:00 98.2 F 18 06/09/22 23:03 87 97 06/09/22 22:58 92 H 97 06/09/22 22:53 85 97 06/09/22 22:48 98 06/09/22 22:48 84 06/09/22 22:48 85 125/71 06/09/22 22:43 90 97 06/09/22 22:38 89 97 06/09/22 22:30 18 06/09/22 22:30 18 06/09/22 22:33 81 125/61 98 06/09/22 22:28 88 97 06/09/22 22:23 99 H 97 06/09/22 22:18 97 06/09/22 22:18 85 06/09/22 22:18 86 128/62 06/09/22 22:13 89 96 06/09/22 22:08 87 97 06/09/22 22:04 76 132/72 06/09/22 22:03 76 97 06/09/22 21:58 78 96 06/09/22 21:53 87 96 06/09/22 21:30 18 06/09/22 21:30 18 06/09/22 21:48 97 06/09/22 21:48 88 06/09/22 21:48 88 122/81 06/09/22 21:43 93 H 98 06/09/22 21:38 80 97 06/09/22 21:33 80 131/80 98 06/09/22 21:28 80 98 06/09/22 21:23 109 H 98 Coding Level of Care Code None Diagnoses Encounter for induction of labor Z34.90 Gestational hypertension O13.9
--- NOTE | 2022-06-10 11:11 | Labor Progress Brief Note ---
Date of Service June 10, 2022 Subjective having more pain with ctx, some rectal pressure and some back pain Assessment & Plan (1) Gestational hypertension: (2) Encounter for induction of labor: Plan some cx change with exam with ctx but thicker ant cx then when i examined her before. pit at 38. will try knee chest position if pt able to do. if pain persists can ask anesthesia for help with pain mgmt. fhts categ 1. Admission and Anticipated Discharge Date Admission Date: June 09, 2022 Physical Exam Constitutional: WD/WN, vitals as above Genitourinary: Manual OB Exam: + cervical dilation 7 cm, + cervical effacement (75%, thicker ant cx) and + station (exam with ctx. ) 0 OB Exam Monitor Tracing: + scalp electrode used, + intra-uterine pressure catheter used (pit at 38, mvu's still inadeq but ctx individually stronger. ), + category I and + normal FHT variability Results & Data ([facility]) Vital Signs (Past 12 Hours) Vital Signs Temp Pulse Resp BP Pulse Ox 06/10/22 07:15 18 06/10/22 07:20 98.4 F 06/10/22 11:03 87 99 06/10/22 10:58 90 99 06/10/22 10:53 90 98 06/10/22 10:50 104 H 127/86 06/10/22 10:48 91 H 99 06/10/22 10:43 94 H 99 06/10/22 10:00 16 06/10/22 10:00 16 06/10/22 10:38 94 H 99 06/10/22 10:30 18 06/10/22 10:30 18 06/10/22 10:33 91 H 99 06/10/22 10:34 90 127/75 06/10/22 10:28 90 98 06/10/22 10:23 99 H 99 06/10/22 10:20 88 132/93 06/10/22 10:18 87 98 06/10/22 10:13 101 H 98 06/10/22 10:08 86 97 06/10/22 10:03 89 128/88 97 06/10/22 09:58 88 97 06/10/22 09:40 18 06/10/22 09:40 18 06/10/22 09:53 89 97 06/10/22 09:48 87 97 06/10/22 09:49 85 130/86 06/10/22 09:43 86 97 06/10/22 09:38 87 97 06/10/22 09:33 87 97 06/10/22 09:34 86 134/91 06/10/22 09:28 98 H 98 06/10/22 09:23 95 H 98 06/10/22 09:19 97 H 122/82 06/10/22 09:00 16 06/10/22 09:00 16 06/10/22 09:18 92 H 98 06/10/22 09:10 98.2 F 06/10/22 09:13 92 H 98 06/10/22 09:08 95 H 98 06/10/22 09:04 85 121/90 06/10/22 09:03 88 98 06/10/22 08:58 89 97 06/10/22 08:53 87 98 06/10/22 08:48 83 118/83 97 06/10/22 08:43 85 97 06/10/22 08:38 90 98 06/10/22 08:33 84 113/78 97 06/10/22 08:28 87 98 06/10/22 08:23 87 98 06/10/22 08:18 90 120/80 99 06/10/22 08:00 18 06/10/22 08:00 18 06/10/22 08:13 88 99 06/10/22 08:08 91 H 99 06/10/22 08:03 92 H 117/79 99 06/10/22 07:58 100 H 99 06/10/22 07:53 89 99 06/10/22 07:48 95 H 99 06/10/22 07:43 94 H 100 06/10/22 07:38 86 99 06/10/22 07:35 83 116/65 06/10/22 07:33 87 99 06/10/22 07:31 82 117/68 06/10/22 07:28 84 99 06/10/22 07:00 22 06/10/22 07:00 22 06/10/22 07:23 84 98 06/10/22 07:18 88 98 06/10/22 07:13 98 06/10/22 07:13 96 H 06/10/22 07:13 89 121/56 L 06/10/22 07:08 91 H 99 06/10/22 07:03 92 H 98 06/10/22 06:58 89 99 06/10/22 06:53 97 H 97 06/10/22 06:48 96 H 98 06/10/22 06:49 95 H 118/88 06/10/22 06:43 86 97 06/10/22 06:38 90 97 06/10/22 06:34 84 113/69 06/10/22 06:33 89 97 06/10/22 06:28 91 H 97 06/10/22 06:00 18 06/10/22 06:00 98.4 F 18 06/10/22 06:23 87 97 06/10/22 06:18 95 H 113/75 97 06/10/22 06:13 83 97 06/10/22 06:08 89 97 06/10/22 06:03 87 113/73 98 06/10/22 05:58 85 97 06/10/22 05:30 18 06/10/22 05:30 18 06/10/22 05:53 89 96 06/10/22 05:00 18 06/10/22 05:00 18 06/10/22 05:48 95 H 98 06/10/22 05:49 91 H 112/68 06/10/22 05:43 90 97 06/10/22 05:38 87 96 06/10/22 05:33 89 119/59 L 98 06/10/22 05:28 88 98 06/10/22 05:23 91 H 98 06/10/22 05:18 88 97 06/10/22 05:19 93 H 129/63 06/10/22 05:15 83 134/92 06/10/22 05:13 87 96 06/10/22 05:08 84 98 06/10/22 05:06 145/93 H 06/10/22 05:03 88 99 06/10/22 04:58 89 98 06/10/22 04:53 89 98 06/10/22 04:48 86 132/81 97 06/10/22 04:43 87 99 06/10/22 04:30 18 06/10/22 04:30 18 06/10/22 04:38 90 100 06/10/22 04:34 89 134/77 06/10/22 04:33 91 H 99 06/10/22 04:28 96 H 99 06/10/22 04:23 94 H 100 06/10/22 04:18 95 H 109/75 99 06/10/22 04:13 86 99 06/10/22 04:00 18 06/10/22 04:00 18 06/10/22 04:08 89 99 06/10/22 04:03 107 H 100 06/10/22 03:58 89 98 06/10/22 02:00 18 06/10/22 02:00 98.4 F 18 06/10/22 03:30 18 06/10/22 03:30 18 06/10/22 03:53 86 97 06/10/22 03:48 98 06/10/22 03:48 81 06/10/22 03:48 83 127/84 06/10/22 03:43 84 97 06/10/22 03:38 90 97 06/10/22 03:34 82 121/83 06/10/22 03:33 79 97 06/10/22 03:28 81 96 06/10/22 03:23 86 97 06/10/22 03:19 78 132/74 06/10/22 03:00 18 06/10/22 03:00 18 06/10/22 03:18 82 97 06/10/22 03:13 101 H 98 06/10/22 03:08 96 H 97 06/10/22 03:03 89 126/79 97 06/10/22 02:58 84 97 06/10/22 02:53 85 97 06/10/22 02:48 81 121/71 98 06/10/22 02:43 79 98 06/10/22 02:38 90 99 06/10/22 02:33 82 97 06/10/22 02:34 79 118/61 06/10/22 02:28 84 97 06/10/22 02:23 80 97 06/10/22 02:18 89 119/80 98 06/10/22 02:13 90 97 06/10/22 02:08 79 98 06/10/22 02:00 18 06/10/22 02:00 98.4 F 18 06/10/22 02:03 82 98 06/10/22 02:04 82 131/81 06/10/22 01:58 88 97 06/10/22 01:53 84 98 06/10/22 01:50 80 111/70 06/10/22 01:48 86 98 06/10/22 01:43 81 98 06/10/22 01:38 105 H 98 06/10/22 01:33 81 99 06/10/22 01:34 82 130/63 06/10/22 01:28 80 96 06/10/22 01:23 95 H 99 06/10/22 01:21 81 106/62 06/10/22 01:18 74 98 06/10/22 01:13 73 98 06/10/22 01:08 72 97 06/10/22 01:00 18 06/10/22 01:00 18 06/10/22 01:04 80 113/60 06/10/22 01:03 80 98 06/10/22 00:58 76 98 06/10/22 00:53 74 98 06/10/22 00:48 76 98 06/10/22 00:43 81 97 06/10/22 00:30 18 06/10/22 00:30 18 06/10/22 00:38 79 97 06/10/22 00:35 75 100/56 L 06/10/22 00:33 78 98 06/10/22 00:28 79 97 06/10/22 00:23 81 98 06/10/22 00:19 82 123/59 L 06/10/22 00:18 85 99 06/10/22 00:13 89 99 06/10/22 00:08 92 H 99 06/10/22 00:04 85 123/73 06/10/22 00:03 90 98 06/10/22 00:00 18 06/10/22 00:00 18 06/09/22 23:58 102 H 99 06/09/22 23:53 80 97 06/09/22 23:48 87 118/60 98 06/09/22 23:43 82 97 06/09/22 23:38 83 97 06/09/22 23:33 91 H 127/81 98 06/09/22 23:28 92 H 97 06/09/22 23:23 89 97 06/09/22 23:18 91 H 124/71 97 06/09/22 23:13 92 H 97 Coding Level of Care Code None Diagnoses Gestational hypertension O13.9 Encounter for induction of labor Z34.90
[2022-06-10] MEDS ORDERED: ROPIVACAINE 0.5% 5 MG/ML 30 ML VIAL ONE (11:41)
[2022-06-10] MEDS ORDERED: LIDOCAINE 2%/EPINEPHRINE 1:200,000 20 ML SDV ONE ×2 (11:41→17:47)
[2022-06-10] MEDS: OXYTOCIN 30 UNITS/500 ML BAG IV PRN (11:56)
--- NOTE | 2022-06-10 13:55 | Labor Progress Brief Note ---
Date of Service June 10, 2022 Subjective pt comfortable Assessment & Plan (1) Encounter for induction of labor: (2) Gestational hypertension: (3) Obesity affecting : Plan no clear cx change although ant cx not as thick, maybe 7-8cm with ctx but without cx 6cm. inadeq mvu's but ctx still regular. discussed keeping pit same since baby tolerating and give more time, if ctx space 1/2 pit and reclimb to try to get more adequate pattern, vs. c/s now. fhts categ 1, +scalp stim response. after discussion opts to cont with pit where it is and will reeval in 2hr. Admission and Anticipated Discharge Date Admission Date: June 09, 2022 Physical Exam Constitutional: WD/WN, vitals as above Genitourinary: Manual OB Exam: + cervical dilation 6 cm, + cervical effacement (75%) and + station (examined without ctx) 0 OB Exam Monitor Tracing: + scalp electrode used, + intra-uterine pressure catheter used (inadeq mvu's, pit at 40, q3), + category I and + normal FHT variability Results & Data ([facility]) Vital Signs (Past 12 Hours) Vital Signs Temp Pulse Resp BP Pulse Ox 06/10/22 11:30 97.7 F 06/10/22 07:15 18 06/10/22 07:20 98.4 F 06/10/22 13:43 89 100 06/10/22 13:30 20 06/10/22 13:30 98.2 F 20 06/10/22 13:38 93 H 98 06/10/22 13:33 99 H 98 06/10/22 13:32 92 H 140/89 06/10/22 13:28 117 H 98 06/10/22 13:23 82 100 06/10/22 13:18 89 124/88 99 06/10/22 13:13 84 98 06/10/22 13:08 89 98 06/10/22 13:03 84 98 06/10/22 13:02 76 116/76 06/10/22 12:58 78 98 06/10/22 12:53 80 98 06/10/22 12:48 75 99 06/10/22 12:47 78 115/77 06/10/22 12:43 86 99 06/10/22 12:30 20 06/10/22 12:30 20 06/10/22 12:38 88 98 06/10/22 12:33 91 H 128/82 97 06/10/22 12:28 77 99 06/10/22 12:23 84 99 06/10/22 12:18 89 99 06/10/22 12:19 84 113/50 L 06/10/22 12:13 100 H 99 06/10/22 12:14 97 H 92 06/10/22 12:08 96 H 100 06/10/22 12:03 94 H 120/85 98 06/10/22 12:00 81 18 132/84 06/10/22 11:58 98 06/10/22 11:58 85 06/10/22 11:58 85 126/89 06/10/22 11:56 83 125/87 06/10/22 11:53 86 97 06/10/22 11:54 88 126/86 06/10/22 11:52 83 126/87 06/10/22 11:50 90 150/96 H 06/10/22 11:48 87 99 06/10/22 11:43 84 99 06/10/22 11:30 22 06/10/22 11:30 22 06/10/22 11:38 86 97 06/10/22 11:34 83 109/65 06/10/22 11:33 85 99 06/10/22 11:28 90 100 06/10/22 11:23 84 98 06/10/22 11:20 84 116/73 06/10/22 11:18 87 98 06/10/22 11:13 90 98 06/10/22 11:08 86 98 06/10/22 11:03 87 99 06/10/22 10:58 90 99 06/10/22 10:53 90 98 06/10/22 10:50 104 H 127/86 06/10/22 10:48 91 H 99 06/10/22 10:43 94 H 99 06/10/22 10:00 16 06/10/22 10:00 16 06/10/22 10:38 94 H 99 06/10/22 10:30 18 06/10/22 10:30 18 06/10/22 10:33 91 H 99 06/10/22 10:34 90 127/75 06/10/22 10:28 90 98 06/10/22 10:23 99 H 99 06/10/22 10:20 88 132/93 06/10/22 10:18 87 98 06/10/22 10:13 101 H 98 06/10/22 10:08 86 97 06/10/22 10:03 89 128/88 97 06/10/22 09:58 88 97 06/10/22 09:40 18 06/10/22 09:40 18 06/10/22 09:53 89 97 06/10/22 09:48 87 97 06/10/22 09:49 85 130/86 06/10/22 09:43 86 97 06/10/22 09:38 87 97 06/10/22 09:33 87 97 06/10/22 09:34 86 134/91 06/10/22 09:28 98 H 98 06/10/22 09:23 95 H 98 06/10/22 09:19 97 H 122/82 06/10/22 09:00 16 06/10/22 09:00 16 06/10/22 09:18 92 H 98 06/10/22 09:10 98.2 F 06/10/22 09:13 92 H 98 06/10/22 09:08 95 H 98 06/10/22 09:04 85 121/90 06/10/22 09:03 88 98 06/10/22 08:58 89 97 06/10/22 08:53 87 98 06/10/22 08:48 83 118/83 97 06/10/22 08:43 85 97 06/10/22 08:38 90 98 06/10/22 08:33 84 113/78 97 06/10/22 08:28 87 98 06/10/22 08:23 87 98 06/10/22 08:18 90 120/80 99 06/10/22 08:00 18 06/10/22 08:00 18 06/10/22 08:13 88 99 06/10/22 08:08 91 H 99 06/10/22 08:03 92 H 117/79 99 06/10/22 07:58 100 H 99 06/10/22 07:53 89 99 06/10/22 07:48 95 H 99 06/10/22 07:43 94 H 100 06/10/22 07:38 86 99 06/10/22 07:35 83 116/65 09/29/22 07:33 87 99 06/10/22 07:31 82 117/68 06/10/22 07:28 84 99 06/10/22 07:00 22 06/10/22 07:00 22 06/10/22 07:23 84 98 06/10/22 07:18 88 98 06/10/22 07:13 98 06/10/22 07:13 96 H 06/10/22 07:13 89 121/56 L 06/10/22 07:08 91 H 99 06/10/22 07:03 92 H 98 06/10/22 06:58 89 99 06/10/22 06:53 97 H 97 06/10/22 06:48 96 H 98 06/10/22 06:49 95 H 118/88 06/10/22 06:43 86 97 06/10/22 06:38 90 97 06/10/22 06:34 84 113/69 06/10/22 06:33 89 97 06/10/22 06:28 91 H 97 06/10/22 06:00 18 06/10/22 06:00 98.4 F 18 06/10/22 06:23 87 97 06/10/22 06:18 95 H 113/75 97 06/10/22 06:13 83 97 06/10/22 06:08 89 97 06/10/22 06:03 87 113/73 98 06/10/22 05:58 85 97 06/10/22 05:30 18 06/10/22 05:30 18 06/10/22 05:53 89 96 06/10/22 05:00 18 06/10/22 05:00 18 06/10/22 05:48 95 H 98 06/10/22 05:49 91 H 112/68 06/10/22 05:43 90 97 06/10/22 05:38 87 96 06/10/22 05:33 89 119/59 L 98 06/10/22 05:28 88 98 06/10/22 05:23 91 H 98 06/10/22 05:18 88 97 06/10/22 05:19 93 H 129/63 06/10/22 05:15 83 134/92 06/10/22 05:13 87 96 06/10/22 05:08 84 98 06/10/22 05:06 145/93 H 06/10/22 05:03 88 99 06/10/22 04:58 89 98 06/10/22 04:53 89 98 06/10/22 04:48 86 132/81 97 06/10/22 04:43 87 99 06/10/22 04:30 18 06/10/22 04:30 18 06/10/22 04:38 90 100 06/10/22 04:34 89 134/77 06/10/22 04:33 91 H 99 06/10/22 04:28 96 H 99 06/10/22 04:23 94 H 100 06/10/22 04:18 95 H 109/75 99 06/10/22 04:13 86 99 06/10/22 04:00 18 06/10/22 04:00 18 06/10/22 04:08 89 99 06/10/22 04:03 107 H 100 06/10/22 03:58 89 98 06/10/22 02:00 18 06/10/22 02:00 98.4 F 18 06/10/22 03:30 18 06/10/22 03:30 18 06/10/22 03:53 86 97 06/10/22 03:48 98 06/10/22 03:48 81 06/10/22 03:48 83 127/84 06/10/22 03:43 84 97 06/10/22 03:38 90 97 06/10/22 03:34 82 121/83 06/10/22 03:33 79 97 06/10/22 03:28 81 96 06/10/22 03:23 86 97 06/10/22 03:19 78 132/74 06/10/22 03:00 18 06/10/22 03:00 18 06/10/22 03:18 82 97 06/10/22 03:13 101 H 98 06/10/22 03:08 96 H 97 06/10/22 03:03 89 126/79 97 06/10/22 02:58 84 97 06/10/22 02:53 85 97 06/10/22 02:48 81 121/71 98 06/10/22 02:43 79 98 06/10/22 02:38 90 99 06/10/22 02:33 82 97 06/10/22 02:34 79 118/61 06/10/22 02:28 84 97 06/10/22 02:23 80 97 06/10/22 02:18 89 119/80 98 06/10/22 02:13 90 97 06/10/22 02:08 79 98 06/10/22 02:00 18 06/10/22 02:00 98.4 F 18 06/10/22 02:03 82 98 06/10/22 02:04 82 131/81 06/10/22 01:58 88 97 06/10/22 01:53 84 98 06/10/22 01:50 80 111/70 Coding Level of Care Code None Diagnoses Encounter for induction of labor Z34.90 Gestational hypertension O13.9 Obesity affecting O99.210
--- NOTE | 2022-06-10 16:21 | Labor Progress Brief Note ---
Date of Service June 10, 2022 Subjective starting to feel some pain Assessment & Plan (1) Encounter for induction of labor: (2) Gestational hypertension: (3) Failure to progress in labor: (4) Failed induction of labor: (5) Obesity affecting : Plan discussed with patient findings on exam, now on about 6hr of 40 of pit and no progress. fhts categ 1. offered continued attempt at labor vs. c/s. i do not feel that more time will result in progress, we have tried stopping pit, increasin pit, changing positions included knee chest and no change. couple have considered such and ready to proceed with c/s. anesth and nursery aware. Admission and Anticipated Discharge Date Admission Date: June 09, 2022 Physical Exam Constitutional: WD/WN, vitals as above Genitourinary: Manual OB Exam: + cervical dilation 6 cm, + cervical effacement (75%) and + station 0 OB Exam Monitor Tracing: + scalp electrode used, + intra-uterine pressure catheter used (inadeq mvu's ctx q2), + category I and + normal FHT variability Results & Data ([facility]) Vital Signs (Past 12 Hours) Vital Signs Temp Pulse Resp BP Pulse Ox 06/10/22 11:30 97.7 F 06/10/22 07:15 18 06/10/22 07:20 98.4 F 06/10/22 16:13 96 H 99 06/10/22 16:08 97 H 97 06/10/22 16:03 94 H 98 06/10/22 16:02 90 135/96 06/10/22 15:58 89 97 06/10/22 15:53 93 H 98 06/10/22 15:48 97 H 99 06/10/22 15:47 88 133/92 06/10/22 15:43 90 99 06/10/22 15:38 96 H 98 06/10/22 15:00 18 06/10/22 15:00 98.4 F 18 06/10/22 15:33 94 H 98 06/10/22 15:32 95 H 128/93 06/10/22 15:28 94 H 99 06/10/22 15:23 90 97 06/10/22 15:18 89 97 06/10/22 15:17 88 139/93 06/10/22 15:13 88 98 06/10/22 15:08 96 H 98 06/10/22 15:03 97 H 98 06/10/22 15:00 20 06/10/22 15:00 20 06/10/22 15:02 88 135/96 06/10/22 14:58 94 H 98 06/10/22 14:53 95 H 98 06/10/22 14:48 86 144/90 H 97 06/10/22 14:30 18 06/10/22 14:30 18 06/10/22 14:43 90 98 06/10/22 14:38 84 97 06/10/22 14:33 97 H 98 06/10/22 14:32 90 142/92 H 06/10/22 14:28 89 98 06/10/22 14:23 86 98 06/10/22 14:18 87 99 06/10/22 14:17 90 133/99 06/10/22 14:13 96 H 99 06/10/22 14:00 18 06/10/22 14:00 18 06/10/22 14:08 90 99 06/10/22 14:03 89 99 06/10/22 14:02 89 129/83 06/10/22 13:58 91 H 99 06/10/22 13:53 89 98 06/10/22 13:48 88 99 06/10/22 13:47 93 H 127/77 06/10/22 13:43 89 100 06/10/22 13:30 20 06/10/22 13:30 98.2 F 20 06/10/22 13:38 93 H 98 06/10/22 13:33 99 H 98 06/10/22 13:32 92 H 140/89 06/10/22 13:28 117 H 98 06/10/22 13:23 82 100 06/10/22 13:18 89 124/88 99 06/10/22 13:13 84 98 06/10/22 13:08 89 98 06/10/22 13:03 84 98 06/10/22 13:02 76 116/76 06/10/22 12:58 78 98 06/10/22 12:53 80 98 06/10/22 12:48 75 99 06/10/22 12:47 78 115/77 06/10/22 12:43 86 99 06/10/22 12:30 20 06/10/22 12:30 20 06/10/22 12:38 88 98 06/10/22 12:33 91 H 128/82 97 06/10/22 12:28 77 99 06/10/22 12:23 84 99 06/10/22 12:18 89 99 06/10/22 12:19 84 113/50 L 06/10/22 12:13 100 H 99 06/10/22 12:14 97 H 92 06/10/22 12:08 96 H 100 06/10/22 12:03 94 H 120/85 98 06/10/22 12:00 81 18 132/84 06/10/22 11:58 98 06/10/22 11:58 85 06/10/22 11:58 85 126/89 06/10/22 11:56 83 125/87 06/10/22 11:53 86 97 06/10/22 11:54 88 126/86 06/10/22 11:52 83 126/87 06/10/22 11:50 90 150/96 H 06/10/22 11:48 87 99 06/10/22 11:43 84 99 06/10/22 11:30 22 06/10/22 11:30 22 06/10/22 11:38 86 97 06/10/22 11:34 83 109/65 06/10/22 11:33 85 99 06/10/22 11:28 90 100 06/10/22 11:23 84 98 06/10/22 11:20 84 116/73 06/10/22 11:18 87 98 06/10/22 11:13 90 98 06/10/22 11:08 86 98 06/10/22 11:03 87 99 06/10/22 10:58 90 99 06/10/22 10:53 90 98 06/10/22 10:50 104 H 127/86 06/10/22 10:48 91 H 99 06/10/22 10:43 94 H 99 06/10/22 10:00 16 06/10/22 10:00 16 06/10/22 10:38 94 H 99 06/10/22 10:30 18 06/10/22 10:30 18 06/10/22 10:33 91 H 99 06/10/22 10:34 90 127/75 06/10/22 10:28 90 98 06/10/22 10:23 99 H 99 06/10/22 10:20 88 132/93 06/10/22 10:18 87 98 06/10/22 10:13 101 H 98 06/10/22 10:08 86 97 06/10/22 10:03 89 128/88 97 06/10/22 09:58 88 97 06/10/22 09:40 18 06/10/22 09:40 18 06/10/22 09:53 89 97 06/10/22 09:48 87 97 06/10/22 09:49 85 130/86 06/10/22 09:43 86 97 06/10/22 09:38 87 97 06/10/22 09:33 87 97 06/10/22 09:34 86 134/91 06/10/22 09:28 98 H 98 06/10/22 09:23 95 H 98 06/10/22 09:19 97 H 122/82 06/10/22 09:00 16 06/10/22 09:00 16 06/10/22 09:18 92 H 98 06/10/22 09:10 98.2 F 06/10/22 09:13 92 H 98 06/10/22 09:08 95 H 98 06/10/22 09:04 85 121/90 06/10/22 09:03 88 98 06/10/22 08:58 89 97 06/10/22 08:53 87 98 06/10/22 08:48 83 118/83 97 06/10/22 08:43 85 97 06/10/22 08:38 90 98 06/10/22 08:33 84 113/78 97 06/10/22 08:28 87 98 06/10/22 08:23 87 98 06/10/22 08:18 90 120/80 99 06/10/22 08:00 18 06/10/22 08:00 18 06/10/22 08:13 88 99 06/10/22 08:08 91 H 99 06/10/22 08:03 92 H 117/79 99 06/10/22 07:58 100 H 99 06/10/22 07:53 89 99 06/10/22 07:48 95 H 99 06/10/22 07:43 94 H 100 06/10/22 07:38 86 99 06/10/22 07:35 83 116/65 09/29/22 07:33 87 99 06/10/22 07:31 82 117/68 06/10/22 07:28 84 99 06/10/22 07:00 22 06/10/22 07:00 22 06/10/22 07:23 84 98 06/10/22 07:18 88 98 06/10/22 07:13 98 06/10/22 07:13 96 H 06/10/22 07:13 89 121/56 L 06/10/22 07:08 91 H 99 06/10/22 07:03 92 H 98 06/10/22 06:58 89 99 06/10/22 06:53 97 H 97 06/10/22 06:48 96 H 98 06/10/22 06:49 95 H 118/88 06/10/22 06:43 86 97 06/10/22 06:38 90 97 06/10/22 06:34 84 113/69 06/10/22 06:33 89 97 06/10/22 06:28 91 H 97 06/10/22 06:00 18 06/10/22 06:00 98.4 F 18 06/10/22 06:23 87 97 06/10/22 06:18 95 H 113/75 97 06/10/22 06:13 83 97 06/10/22 06:08 89 97 06/10/22 06:03 87 113/73 98 06/10/22 05:58 85 97 06/10/22 05:30 18 06/10/22 05:30 18 06/10/22 05:53 89 96 06/10/22 05:00 18 06/10/22 05:00 18 06/10/22 05:48 95 H 98 06/10/22 05:49 91 H 112/68 06/10/22 05:43 90 97 06/10/22 05:38 87 96 06/10/22 05:33 89 119/59 L 98 06/10/22 05:28 88 98 06/10/22 05:23 91 H 98 06/10/22 05:18 88 97 06/10/22 05:19 93 H 129/63 06/10/22 05:15 83 134/92 06/10/22 05:13 87 96 06/10/22 05:08 84 98 06/10/22 05:06 145/93 H 06/10/22 05:03 88 99 06/10/22 04:58 89 98 06/10/22 04:53 89 98 06/10/22 04:48 86 132/81 97 06/10/22 04:43 87 99 06/10/22 04:30 18 06/10/22 04:30 18 06/10/22 04:38 90 100 06/10/22 04:34 89 134/77 06/10/22 04:33 91 H 99 06/10/22 04:28 96 H 99 06/10/22 04:23 94 H 100 06/10/22 04:18 95 H 109/75 99 Coding Level of Care Code None Diagnoses Encounter for induction of labor Z34.90 Gestational hypertension O13.9 Failure to progress in labor O62.2 Failed induction of labor O61.9 Obesity affecting O99.210
[2022-06-10] MEDS ORDERED: LACTATED RINGER'S 1,000 ML IV SCH ×3 (16:30→19:00)
[2022-06-10] MEDS ORDERED: AZITHROMYCIN 500 MG in DEXTROSE 5% 250 ML IV ONE (16:45)
[2022-06-10] MEDS ORDERED: CITRIC ACID/SODIUM CITRATE 15 ML UDC PO SCH (16:45)
[2022-06-10] MEDS ORDERED: OXYTOCIN 10 UNITS/ML VIAL ONE (17:19)
[2022-06-10] MEDS ORDERED: miSOPROStoL 200 MCG TAB ONE (17:20)
[2022-06-10] MEDS ORDERED: MoRPHine SULFATE PF 1 MG/ML 10 ML AMP/VIAL ONE (17:20)
[2022-06-10] MEDS ORDERED: PROPOFOL IV EMULSION 10 MG/ML 20 ML VIAL IV ONE (17:47)
[2022-06-10] MEDS ORDERED: ONDANSETRON INJ 2 MG/ML 2 ML VIAL ONE (17:47)
[2022-06-10] MEDS ORDERED: OXYTOCIN 10 UNITS/ML 10ML VIAL ONE (17:47)
[2022-06-10] MEDS ORDERED: SODIUM CHLORIDE 0.9% INJ 10 ML VIAL ONE (17:47)
[2022-06-10] MEDS ORDERED: METOCLOPRAMIDE HCL INJ 5 MG/ML 2 ML VIAL ONE (17:47)
[2022-06-10] MEDS ORDERED: LIDOCAINE 2% 20 MG/ML 5 ML SYR IV ONE (17:47)
[2022-06-10] MEDS ORDERED: NALOXONE HCL 0.4 MG/1 ML VIAL/CARP IV PRN (17:54)
[2022-06-10] MEDS ORDERED: MoRPHine SULFATE PF 1 MG/ML 10 ML AMP/VIAL EPI ONE (17:54)
[2022-06-10] MEDS ORDERED: NALOXONE HCL 0.08 MG in SYRINGE 1.8 ML IV PRN (17:54)
[2022-06-10] MEDS ORDERED: NALOXONE HCL 1 MG in SODIUM CHLORIDE 0.9% 1000ML 1,000 ML IV PRN (17:54)
[2022-06-10] MEDS ORDERED: ePHEDrine sulfate 50 MG/ML AMP IV PRN (17:54)
[2022-06-10] MEDS ORDERED: NALBUPHINE HCL INJ 10 MG/ML AMP IV PRN (17:54)
[2022-06-10] MEDS ORDERED: MoRPHine SULFATE 2 MG/ML CARP IV PRN (17:54)
[2022-06-10] MEDS ORDERED: diphenhydrAMINE 50 MG/ML VIAL IV PRN (17:54)
[2022-06-10] MEDS ORDERED: LACTATED RINGER'S 500 ML IV PRN (17:54)
[2022-06-10] MEDS ORDERED: PROMETHAZINE HCL 12.5 MG in SODIUM CHLORIDE 0.9% 50 ML IV PRN (17:54)
[2022-06-10] MEDS ORDERED: ONDANSETRON INJ 2 MG/ML 2 ML VIAL IV PRN (17:54)
[2022-06-10] MEDS ORDERED: SODIUM CHLORIDE 0.9% 1000ML 1,000 ML IV SCH (18:00)
[2022-06-10] MEDS ORDERED: DC INTRASPINAL MORPHINE SCH (18:00)
[2022-06-10] MEDS ORDERED: NO NARCOTICS OR SEDATIVES SCH (18:00)
--- NOTE | 2022-06-10 18:31 | Post Operative Brief Note ---
[facility] Immediate Post Op with CF Date of Surgery June 10, 2022 Pre & Post Diagnosis Operation Date: 06/10/22 16:30 Pre-Op Diagnosis: 1. 37 Week IUP 2. Gestational Hypertension 3. Failure to progress. 4. Failed induction. I identified the patient and participated in the time-out.: Yes Procedure Operation Date: 06/10/22 16:30 Actual Procedures p Primary Low Transverse Section in LD- Life female child @ (Bilateral) - Edie Landry MD, FACOG Surgeon Edie Landry MD, FACOG Safety Engineer Cathie Estimated Blood Loss 500 Findings Consistent with Post-Op Diagnosis (normal uterus tubes and ovaries bilaterally, viable female apgars pending) Fluids 1300 Specimens Specimen Description: A: Placenta (HOLD) B: Cord blood Drains Estrada Catheter (Estrada inserted prior to c/section, patent and draining. ) Anesthesia Type Spinal Complications none Disposition Accompanied Patient To Recovery: No Disposition: L&D
[2022-06-10] MEDS ORDERED: BENZOCAINE 20% AER SPR 82.5 GM CAN EXT PRN ×2 (18:46→18:49)
[2022-06-10] MEDS ORDERED: HYDROCORTISONE ACETATE 25 MG SUPP PR PRN ×2 (18:46→18:49)
[2022-06-10] MEDS ORDERED: DIPHTHERIA/TETANUS/PERTUSSIS 0.5 ML SYR/VIAL IM ONE (18:46)
[2022-06-10] MEDS ORDERED: SENNA 8.6 MG TAB PO PRN ×2 (18:46→18:49)
[2022-06-10] MEDS ORDERED: MAGNESIUM HYDROXIDE SUSP 30 ML UDC PO PRN ×2 (18:46→18:49)
--- NOTE | 2022-06-10 18:55 | Operative Report ---
PG Post Operative Report Pre & Post Diagnosis Operation Date: 06/10/22 16:30 Pre-Op Diagnosis: 1. 37 week iup 2. Induction of labor 3. Gestational hypertension 4. Maternal obesity 5. Failure to progress I identified the patient and participated in the time-out.: Yes Procedure Operation Date: 06/10/22 16:30 Actual Procedures p Primary Low Transverse Section Surgeon Edie Landry MD, FACOG Notcher Cathie Estimated Blood Loss 500 Findings Consistent with Post-Op Diagnosis (normal uterus tubes and ovaries bilaterally, viable female apgars 8,9) Fluids 1300 Specimens cord blood Drains richardson Anesthesia Type Spinal Complications none Disposition Accompanied Patient To Recovery: No Disposition: L&D Indications 32yo at 37wks who was admitted for induction of labor with diagnosis of gestational hypertension. She had a richardson ripening balloon on night prior to her admission and then began with admission with pitocin and arom yesterday. Progress was slow. Pitocin was used over many hours never achieving adequate mvu's despite 40milliunits/min dosing. Ultimately with cervix not progressing past 6cm she was counseled regarding option for section and she and partner agreed. Description of Procedure The patient was taken to the operating room and identified. After adequate anesthesia was obtained, she was placed in the supine position with a leftward tilt on the operating table and prepped and draped in the usual sterile fashion. A richardson catheter had already been placed. The knife was used to create a Pfannensteil skin incision that was carried down to the underlying layer of fascia. The fascia was nicked in the midline and this opening was extended laterally using Waite scissors. Jim clamps were placed on the superior and inferior aspect of the fascial incision tenting it upward and the underlying rectus muscles were dissected off the overlying fascia both sharply and bluntly using Waite scissors. The rectus muscles were bluntly in the midline. The peritoneal cavity was bluntly entered into. This opening was stretched. The bladder blade was placed. The vesicouterine peritoneum was elevated and opened up into and the bladder flap was created digitally and bladder blade was replaced. The knife was used to create a hysterotomy and this opening was stretched. The operators hand was placed through the hysterotomy and the bladder blade was removed. The head was elevated and flexed and with fundal pressure the head was delivered. The shoulders and body were rapidly delivered. The cord was clamped and cut and the 's mouth and nares were bulb suction. The infant was handed off to the awaiting pediatricians. Cord blood was obtained. The placenta was manually expressed. The uterus was exteriorized and cleared of all clots and debris. Dilute IV Pitocin was begun. The uterine tone was improving. The hysterotomy was closed in a running interlocking fashion using 0 Vicryl followed by a second imbricating layer of 0 Vicryl. The hysterotomy was not hemostatic in midline so additional interrupted sutures of 2-0 vicryl were placed for excellent hemostasis. Area of peritoneal reaction on surface of uterus away from hysterotomy was oozy. The pelvis was irrigated. The uterus was returned to the abdomen. The gutters were cleared of all clots and debris. The hysterotomy was reinspected and noted to be hemostatic. The peritoneal reaction area was oozy and so cherry was applied. The fascia was then closed in running fashion using 0 Vicryl. The subcutaneous fat was copiously irrigated and reapproximated using 2-0 chromic. The skin was closed in a subcuticular fashion using 4-0 monocryl. At this point the procedure was terminated. A dressing was applied. The patient was transferred to the recovery room in stable condition. All sponge, lap and needle counts are correct x2. I attest to the content of the Intraoperative Record and any orders documented therein. Any exceptions are noted below. OB Procedure Charges [id number]
--- NOTE | 2022-06-10 19:40 | Anesthesiology Progress Note ---
Date of Service June 10, 2022 Anesthesia Post Procedure Vital Signs Vital Signs: Temp Pulse Resp BP Pulse Ox 06/10/22 18:45 36.8 C 18 06/10/22 19:30 18 06/10/22 19:20 18 06/10/22 19:10 18 06/10/22 19:00 36.9 C 18 06/10/22 11:30 36.5 C 06/10/22 07:15 18 06/10/22 07:20 36.9 C 06/10/22 19:37 89 97 06/10/22 19:32 94 H 99 06/10/22 19:27 90 98 06/10/22 19:25 90 135/67 06/10/22 19:22 93 H 98 06/10/22 19:21 96 H 154/85 H 06/10/22 19:17 98 H 98 06/10/22 19:12 86 98 06/10/22 19:08 92 H 106/61 06/10/22 19:07 92 H 99 06/10/22 19:02 100 H 99 06/10/22 18:59 111 H 99/49 L 06/10/22 18:57 110 H 100 06/10/22 18:52 115 H 100 06/10/22 18:49 101 H 98/57 L 06/10/22 18:47 100 H 100 06/10/22 18:42 100 06/10/22 18:42 102 H 06/10/22 18:41 103 H 79/51 L 06/10/22 18:42 106 H 78/49 L 06/10/22 18:40 109 H 92 06/10/22 18:37 107 H 100 06/10/22 17:29 18 06/10/22 17:29 18 06/10/22 16:30 18 06/10/22 16:30 18 06/10/22 16:00 18 06/10/22 16:00 18 06/10/22 17:25 92 H 98 06/10/22 17:20 92 H 97 06/10/22 17:15 91 H 99 06/10/22 17:11 85 137/95 06/10/22 17:10 90 98 06/10/22 17:05 89 98 06/10/22 17:00 95 H 18 98 06/10/22 16:53 92 H 98 06/10/22 16:48 91 H 98 06/10/22 16:47 92 H 144/100 H 06/10/22 16:43 94 H 99 06/10/22 16:38 95 H 98 06/10/22 16:33 93 H 98 06/10/22 16:28 95 H 99 06/10/22 16:23 95 H 98 06/10/22 16:18 89 99 06/10/22 16:17 97 H 141/102 H 06/10/22 16:13 96 H 99 06/10/22 16:08 97 H 97 06/10/22 16:03 94 H 98 06/10/22 16:02 90 135/96 06/10/22 15:58 89 97 06/10/22 15:53 93 H 98 06/10/22 15:48 97 H 99 06/10/22 15:47 88 133/92 06/10/22 15:43 90 99 06/10/22 15:38 96 H 98 06/10/22 15:00 18 06/10/22 15:00 36.9 C 18 06/10/22 15:33 94 H 98 06/10/22 15:32 95 H 128/93 06/10/22 15:28 94 H 99 06/10/22 15:23 90 97 06/10/22 15:18 89 97 06/10/22 15:17 88 139/93 06/10/22 15:13 88 98 06/10/22 15:08 96 H 98 06/10/22 15:03 97 H 98 06/10/22 15:00 20 06/10/22 15:00 20 06/10/22 15:02 88 135/96 06/10/22 14:58 94 H 98 06/10/22 14:53 95 H 98 06/10/22 14:48 86 144/90 H 97 06/10/22 14:30 18 06/10/22 14:30 18 06/10/22 14:43 90 98 06/10/22 14:38 84 97 06/10/22 14:33 97 H 98 06/10/22 14:32 90 142/92 H 06/10/22 14:28 89 98 06/10/22 14:23 86 98 06/10/22 14:18 87 99 06/10/22 14:17 90 133/99 06/10/22 14:13 96 H 99 06/10/22 14:00 18 06/10/22 14:00 18 06/10/22 14:08 90 99 06/10/22 14:03 89 99 06/10/22 14:02 89 129/83 06/10/22 13:58 91 H 99 06/10/22 13:53 89 98 06/10/22 13:48 88 99 06/10/22 13:47 93 H 127/77 06/10/22 13:43 89 100 06/10/22 13:30 20 06/10/22 13:30 36.8 C 20 06/10/22 13:38 93 H 98 06/10/22 13:33 99 H 98 06/10/22 13:32 92 H 140/89 06/10/22 13:28 117 H 98 06/10/22 13:23 82 100 06/10/22 13:18 89 124/88 99 06/10/22 13:13 84 98 06/10/22 13:08 89 98 06/10/22 13:03 84 98 06/10/22 13:02 76 116/76 06/10/22 12:58 78 98 06/10/22 12:53 80 98 06/10/22 12:48 75 99 06/10/22 12:47 78 115/77 06/10/22 12:43 86 99 06/10/22 12:30 20 06/10/22 12:30 20 06/10/22 12:38 88 98 06/10/22 12:33 91 H 128/82 97 06/10/22 12:28 77 99 06/10/22 12:23 84 99 06/10/22 12:18 89 99 06/10/22 12:19 84 113/50 L 06/10/22 12:13 100 H 99 06/10/22 12:14 97 H 92 06/10/22 12:08 96 H 100 06/10/22 12:03 94 H 120/85 98 06/10/22 12:00 81 18 132/84 06/10/22 11:58 98 06/10/22 11:58 85 06/10/22 11:58 85 126/89 06/10/22 11:56 83 125/87 06/10/22 11:53 86 97 06/10/22 11:54 88 126/86 06/10/22 11:52 83 126/87 06/10/22 11:50 90 150/96 H 06/10/22 11:48 87 99 06/10/22 11:43 84 99 06/10/22 11:30 22 06/10/22 11:30 22 06/10/22 11:38 86 97 06/10/22 11:34 83 109/65 06/10/22 11:33 85 99 06/10/22 11:28 90 100 06/10/22 11:23 84 98 06/10/22 11:20 84 116/73 06/10/22 11:18 87 98 06/10/22 11:13 90 98 06/10/22 11:08 86 98 06/10/22 11:03 87 99 06/10/22 10:58 90 99 06/10/22 10:53 90 98 06/10/22 10:50 104 H 127/86 06/10/22 10:48 91 H 99 06/10/22 10:43 94 H 99 06/10/22 10:00 16 06/10/22 10:00 16 06/10/22 10:38 94 H 99 06/10/22 10:30 18 06/10/22 10:30 18 06/10/22 10:33 91 H 99 06/10/22 10:34 90 127/75 06/10/22 10:28 90 98 06/10/22 10:23 99 H 99 06/10/22 10:20 88 132/93 06/10/22 10:18 87 98 06/10/22 10:13 101 H 98 06/10/22 10:08 86 97 06/10/22 10:03 89 128/88 97 06/10/22 09:58 88 97 06/10/22 09:40 18 06/10/22 09:40 18 06/10/22 09:53 89 97 06/10/22 09:48 87 97 06/10/22 09:49 85 130/86 06/10/22 09:43 86 97 06/10/22 09:38 87 97 06/10/22 09:33 87 97 06/10/22 09:34 86 134/91 06/10/22 09:28 98 H 98 06/10/22 09:23 95 H 98 06/10/22 09:19 97 H 122/82 06/10/22 09:00 16 06/10/22 09:00 16 06/10/22 09:18 92 H 98 06/10/22 09:10 36.8 C 06/10/22 09:13 92 H 98 06/10/22 09:08 95 H 98 06/10/22 09:04 85 121/90 06/10/22 09:03 88 98 06/10/22 08:58 89 97 06/10/22 08:53 87 98 06/10/22 08:48 83 118/83 97 06/10/22 08:43 85 97 06/10/22 08:38 90 98 06/10/22 08:33 84 113/78 97 06/10/22 08:28 87 98 06/10/22 08:23 87 98 06/10/22 08:18 90 120/80 99 06/10/22 08:00 18 06/10/22 08:00 18 06/10/22 08:13 88 99 06/10/22 08:08 91 H 99 06/10/22 08:03 92 H 117/79 99 06/10/22 07:58 100 H 99 06/10/22 07:53 89 99 06/10/22 07:48 95 H 99 06/10/22 07:43 94 H 100 06/10/22 07:38 86 99 06/10/22 07:35 83 116/65 06/10/22 07:33 87 99 06/10/22 07:31 82 117/68 06/10/22 07:28 84 99 06/10/22 07:00 22 06/10/22 07:00 22 06/10/22 07:23 84 98 06/10/22 07:18 88 98 06/10/22 07:13 98 06/10/22 07:13 96 H 06/10/22 07:13 89 121/56 L 06/10/22 07:08 91 H 99 06/10/22 07:03 92 H 98 06/10/22 06:58 89 99 06/10/22 06:53 97 H 97 06/10/22 06:48 96 H 98 06/10/22 06:49 95 H 118/88 06/10/22 06:43 86 97 06/10/22 06:38 90 97 06/10/22 06:34 84 113/69 06/10/22 06:33 89 97 06/10/22 06:28 91 H 97 06/10/22 06:00 18 06/10/22 06:00 36.9 C 18 06/10/22 06:23 87 97 06/10/22 06:18 95 H 113/75 97 06/10/22 06:13 83 97 06/10/22 06:08 89 97 06/10/22 06:03 87 113/73 98 06/10/22 05:58 85 97 06/10/22 05:30 18 06/10/22 05:30 18 06/10/22 05:53 89 96 06/10/22 05:00 18 06/10/22 05:00 18 06/10/22 05:48 95 H 98 06/10/22 05:49 91 H 112/68 06/10/22 05:43 90 97 06/10/22 05:38 87 96 06/10/22 05:33 89 119/59 L 98 06/10/22 05:28 88 98 06/10/22 05:23 91 H 98 06/10/22 05:18 88 97 06/10/22 05:19 93 H 129/63 06/10/22 05:15 83 134/92 06/10/22 05:13 87 96 06/10/22 05:08 84 98 06/10/22 05:06 145/93 H 06/10/22 05:03 88 99 06/10/22 04:58 89 98 06/10/22 04:53 89 98 06/10/22 04:48 86 132/81 97 06/10/22 04:43 87 99 06/10/22 04:30 18 06/10/22 04:30 18 06/10/22 04:38 90 100 06/10/22 04:34 89 134/77 06/10/22 04:33 91 H 99 06/10/22 04:28 96 H 99 06/10/22 04:23 94 H 100 06/10/22 04:18 95 H 109/75 99 06/10/22 04:13 86 99 06/10/22 04:00 18 06/10/22 04:00 18 06/10/22 04:08 89 99 06/10/22 04:03 107 H 100 06/10/22 03:58 89 98 06/10/22 02:00 18 06/10/22 02:00 36.9 C 18 06/10/22 03:30 18 06/10/22 03:30 18 06/10/22 03:53 86 97 06/10/22 03:48 98 06/10/22 03:48 81 06/10/22 03:48 83 127/84 06/10/22 03:43 84 97 06/10/22 03:38 90 97 06/10/22 03:34 82 121/83 06/10/22 03:33 79 97 06/10/22 03:28 81 96 06/10/22 03:23 86 97 06/10/22 03:19 78 132/74 06/10/22 03:00 18 06/10/22 03:00 18 06/10/22 03:18 82 97 06/10/22 03:13 101 H 98 06/10/22 03:08 96 H 97 06/10/22 03:03 89 126/79 97 06/10/22 02:58 84 97 06/10/22 02:53 85 97 06/10/22 02:48 81 121/71 98 06/10/22 02:43 79 98 06/10/22 02:38 90 99 06/10/22 02:33 82 97 06/10/22 02:34 79 118/61 06/10/22 02:28 84 97 06/10/22 02:23 80 97 06/10/22 02:18 89 119/80 98 06/10/22 02:13 90 97 06/10/22 02:08 79 98 06/10/22 02:00 18 06/10/22 02:00 36.9 C 18 06/10/22 02:03 82 98 06/10/22 02:04 82 131/81 06/10/22 01:58 88 97 06/10/22 01:53 84 98 06/10/22 01:50 80 111/70 06/10/22 01:48 86 98 06/10/22 01:43 81 98 06/10/22 01:38 105 H 98 06/10/22 01:33 81 99 06/10/22 01:34 82 130/63 06/10/22 01:28 80 96 06/10/22 01:23 95 H 99 06/10/22 01:21 81 106/62 06/10/22 01:18 74 98 06/10/22 01:13 73 98 06/10/22 01:08 72 97 06/10/22 01:00 18 06/10/22 01:00 18 06/10/22 01:04 80 113/60 06/10/22 01:03 80 98 06/10/22 00:58 76 98 06/10/22 00:53 74 98 06/10/22 00:48 76 98 06/10/22 00:43 81 97 06/10/22 00:30 18 06/10/22 00:30 18 06/10/22 00:38 79 97 06/10/22 00:35 75 100/56 L 06/10/22 00:33 78 98 06/10/22 00:28 79 97 06/10/22 00:23 81 98 06/10/22 00:19 82 123/59 L 06/10/22 00:18 85 99 06/10/22 00:13 89 99 06/10/22 00:08 92 H 99 06/10/22 00:04 85 123/73 06/10/22 00:03 90 98 06/10/22 00:00 18 06/10/22 00:00 18 06/09/22 23:58 102 H 99 06/09/22 23:53 80 97 06/09/22 23:48 87 118/60 98 06/09/22 23:43 82 97 06/09/22 23:38 83 97 06/09/22 23:33 91 H 127/81 98 06/09/22 23:28 92 H 97 06/09/22 23:23 89 97 06/09/22 23:18 91 H 124/71 97 06/09/22 23:13 92 H 97 06/09/22 23:08 91 H 97 06/09/22 23:04 88 120/70 06/09/22 23:00 18 06/09/22 23:00 36.8 C 18 06/09/22 23:03 87 97 06/09/22 22:58 92 H 97 06/09/22 22:53 85 97 06/09/22 22:48 98 06/09/22 22:48 84 09/28/22 22:48 85 125/71 06/09/22 22:43 90 97 06/09/22 22:38 89 97 06/09/22 22:30 18 06/09/22 22:30 18 06/09/22 22:33 81 125/61 98 06/09/22 22:28 88 97 06/09/22 22:23 99 H 97 06/09/22 22:18 97 06/09/22 22:18 85 06/09/22 22:18 86 128/62 06/09/22 22:13 89 96 06/09/22 22:08 87 97 06/09/22 22:04 76 132/72 06/09/22 22:03 76 97 06/09/22 21:58 78 96 06/09/22 21:53 87 96 06/09/22 21:30 18 06/09/22 21:30 18 06/09/22 21:48 97 06/09/22 21:48 88 06/09/22 21:48 88 122/81 06/09/22 21:43 93 H 98 06/09/22 21:00 18 06/09/22 21:00 18 06/09/22 21:38 80 97 06/09/22 21:33 80 131/80 98 06/09/22 21:28 80 98 06/09/22 21:23 109 H 98 06/09/22 21:19 88 132/75 06/09/22 21:18 87 98 06/09/22 21:13 81 98 06/09/22 21:08 80 99 06/09/22 21:03 81 132/87 98 06/09/22 20:58 92 H 98 06/09/22 20:53 87 99 06/09/22 20:48 87 134/89 99 06/09/22 20:43 89 99 06/09/22 20:30 18 06/09/22 20:30 18 06/09/22 20:38 99 H 99 06/09/22 20:33 90 99 06/09/22 20:28 101 H 99 06/09/22 20:23 100 H 98 06/09/22 20:18 90 113/74 99 06/09/22 20:00 18 06/09/22 20:00 18 06/09/22 20:13 90 98 06/09/22 20:08 94 H 98 06/09/22 20:03 97 H 99 06/09/22 19:58 86 98 06/09/22 19:53 87 99 06/09/22 19:48 83 99 06/09/22 19:43 86 99 Pain Intensity Back: Pain Intensity: 6 Transfer of Care Handoff Completed per policy Notes Mental Status: alert / awake / arousable Patient Amnestic to Procedure: Yes Nausea / Vomiting: adequately controlled Pain: adequately controlled Airway Patency, RR, SpO2: stable & adequate BP & HR: stable & adequate Hydration State: stable & adequate Anesthetic Complications: no major complications apparent
[2022-06-10] MEDS ORDERED: SIMETHICONE 80 MG CHEW PO SCH (21:00)
[2022-06-10] MEDS ORDERED: DOCUSATE SODIUM 100 MG CAP PO SCH (21:00)
[2022-06-10] MEDS: SIMETHICONE 80 MG CHEW PO SCH (21:07)
[2022-06-10] MEDS: DOCUSATE SODIUM 100 MG CAP PO SCH (21:07)
[2022-06-10] MEDS: OXYTOCIN 20 UNITS in LACTATED RINGER'S 1,000 ML IV SCH (21:08)
[2022-06-10] MEDS: KETOROLAC 30 MG/ML VIAL IV PRN (21:09)
[2022-06-11] MEDS: KETOROLAC 30 MG/ML VIAL IV PRN ×2 (02:22→08:25)
[2022-06-11] MEDS: OXYTOCIN 20 UNITS in LACTATED RINGER'S 1,000 ML IV SCH (05:35)
--- NOTE | 2022-06-11 06:38 | Obstetrical Progress Note ---
Date of Service June 11, 2022 Assessment & Plan (1) care following delivery: (2) Gestational hypertension: (3) Failure to progress in labor: Plan - Overall, feeling well and eating clears w/o difficulty - Anticipate progressing with ambulation and diet today - Infant formula feeding going well without concern - Urinating via Estrada, anticipate removal in AM and passing gas appropriately - Pain controlled w/ Toradol - Hgb 06/11 Pending - Routine PP care progressing well - Anticipate discharge at POD #3 Admission and Anticipated Discharge Date Admission Date: June 09, 2022 Supervising Physician Co-Signing Physician Notes Resident Physician Supervision Note: I was present with Dr. Leggett during the history and exam. I discussed the case with the resident and agree with the findings and plan as documented in the note. Any exceptions or clarifications are listed here: stable, routine care. hgb noted. ff 1 down nt, nt calves. will have voiding trial later today. adv diet. ambulate. dressing removed, incision c/d/i Documented By: Edie Landry MD, FACOG Subjective Today 06/11: Patient is a 32 y/o female who is POD#1 following delivery at 37w3d. Patient presented for IOL d/t GHTN, but ultimately required C/s due to failure to progress. - Ambulation - none - Voiding/Estrada - Estrada in, no dysuria or pressure - Gas/Stool - passing gas, no bowel movement - Diet - clears, no nausea or emesis - Lochia - diminishing, light amount - Feeding Type - bottle feeding, no breast pain - Pain Level - 4.5/10, controlled with Toradol Review of Systems - Denies fever, chills, sweats - Denies shortness of breath, difficulty breathing, chest pain, palpitations, chest pressure. - Denies breast pain. - Denies dysuria. - Denies headache or changes in vision. Physical Exam Physical Exam: General: Alert, oriented. No acute distress. Cardiac: RRR, normal S1/S2, no murmurs/rubs/gallops. Respiratory: Non-labored, CTAB, no wheezes/rales/rhonchi. Symmetric chest rise. Abdomen: Soft, mild TTP throughout, nondistended, no peritoneal signs. Bowel sounds present. Uterus: Uterine fundus firm, palpable 1 cm below umbilicus. Surgical dressing intact, clean and dry. Lower Extremities: 1+ lower extremity edema. No deep calf pain. Daniel's negative bilaterally. SCD on. Results & Data ([facility]) Vital Signs (Past 12 Hours) Vital Signs Temp Pulse Pulse Resp BP BP Pulse Ox 06/11/22 03:54 36.6 C 93 H 18 111/77 97 06/10/22 21:30 06/11/22 02:15 06/11/22 02:15 18 97 06/11/22 02:15 36.9 C 93 H 18 115/77 97 06/10/22 23:00 18 97 06/11/22 00:00 18 98 06/10/22 22:00 18 96 06/11/22 01:00 18 96 06/10/22 23:04 37 C 91 H 18 124/81 96 06/10/22 21:30 18 96 06/10/22 21:30 37.0 C 97 H 18 124/85 96 06/10/22 20:50 37.1 C 14 06/10/22 20:20 18 06/10/22 19:50 18 06/10/22 19:50 18 06/10/22 19:40 18 06/10/22 18:45 36.8 C 18 06/10/22 19:30 18 06/10/22 19:20 18 06/10/22 19:10 18 06/10/22 19:00 36.9 C 18 06/10/22 20:52 92 H 97 06/10/22 20:49 93 H 06/10/22 20:49 143/90 H 06/10/22 20:49 94 H 143/93 H 06/10/22 20:47 95 H 97 06/10/22 20:42 93 H 97 06/10/22 20:39 93 H 143/90 H 06/10/22 20:37 96 H 96 06/10/22 20:32 94 H 97 06/10/22 20:30 92 H 136/65 06/10/22 20:27 90 96 06/10/22 20:22 98 H 97 06/10/22 20:19 159/70 H 06/10/22 20:17 91 H 97 06/10/22 20:12 94 H 98 06/10/22 20:09 90 138/64 06/10/22 20:07 90 97 06/10/22 20:02 92 H 96 06/10/22 19:59 99 H 150/84 H 06/10/22 19:57 95 H 97 06/10/22 19:52 88 138/93 98 06/10/22 19:47 89 98 06/10/22 19:42 90 97 06/10/22 19:39 94 H 143/78 H 06/10/22 19:37 89 97 06/10/22 19:32 94 H 99 06/10/22 19:27 90 98 06/10/22 19:25 90 135/67 06/10/22 19:22 93 H 98 06/10/22 19:21 96 H 154/85 H 06/10/22 19:17 98 H 98 06/10/22 19:12 86 98 06/10/22 19:08 92 H 106/61 06/10/22 19:07 92 H 99 06/10/22 19:02 100 H 99 06/10/22 18:59 111 H 99/49 L 06/10/22 18:57 110 H 100 06/10/22 18:52 115 H 100 06/10/22 18:49 101 H 98/57 L 06/10/22 18:47 100 H 100 06/10/22 18:42 100 06/10/22 18:42 102 H 06/10/22 18:41 103 H 79/51 L 06/10/22 18:42 106 H 78/49 L 06/10/22 18:40 109 H 92 06/10/22 18:37 107 H 100 Pulse Ox O2 Del Method O2 Del Method 06/11/22 03:54 Room Air 06/10/22 21:30 97 Room Air 06/11/22 02:15 97 Room Air 06/11/22 02:15 06/11/22 02:15 Room Air 06/10/22 23:00 06/11/22 00:00 06/10/22 22:00 06/11/22 01:00 06/10/22 23:04 Room Air 06/10/22 21:30 06/10/22 21:30 Room Air 06/10/22 20:50 06/10/22 20:20 06/10/22 19:50 06/10/22 19:50 06/10/22 19:40 06/10/22 18:45 06/10/22 19:30 06/10/22 19:20 06/10/22 19:10 06/10/22 19:00 06/10/22 20:52 06/10/22 20:49 06/10/22 20:49 06/10/22 20:49 06/10/22 20:47 06/10/22 20:42 06/10/22 20:39 06/10/22 20:37 06/10/22 20:32 06/10/22 20:30 06/10/22 20:27 06/10/22 20:22 06/10/22 20:19 06/10/22 20:17 06/10/22 20:12 06/10/22 20:09 06/10/22 20:07 06/10/22 20:02 06/10/22 19:59 06/10/22 19:57 06/10/22 19:52 06/10/22 19:47 06/10/22 19:42 06/10/22 19:39 06/10/22 19:37 06/10/22 19:32 06/10/22 19:27 06/10/22 19:25 06/10/22 19:22 06/10/22 19:21 06/10/22 19:17 06/10/22 19:12 06/10/22 19:08 06/10/22 19:07 06/10/22 19:02 06/10/22 18:59 06/10/22 18:57 06/10/22 18:52 06/10/22 18:49 06/10/22 18:47 06/10/22 18:42 06/10/22 18:42 06/10/22 18:41 06/10/22 18:42 06/10/22 18:40 06/10/22 18:37 Resident Activity Tracking Resident Involvement: Resident Care Provided Care Provided: OB Delivery
[2022-06-11 07:24] LABS: Basophils # (auto) 0.04 K/uL (0-0.2); Basophils % (auto) 0.3 %; Eosinophils # (auto) 0.06 K/uL (0-0.50); Eosinophils % (auto) 0.4 %; Hematocrit (blood only) 27.8 % (34.1-44.9); Hemoglobin 9.2 g/dl (12.0-16.0); Immature Granulocytes # (auto) 0.12 K/uL (0.00-0.02); Immature Granulocytes % (auto) 0.8 %; Lymphocytes # (auto) 1.38 K/uL (1.2-3.4); Lymphocytes % (auto) 8.7 %; Mean Corpuscular Hemoglobin 26.7 pg (25.0-34.0); Mean Corpuscular Hgb Conc 33.1 g/dL (32.0-36.0); Mean Corpuscular Volume 80.6 fL (80.0-100.0); Mean Platelet Volume 11.7 fL (9.4-12.3); Monocytes # (auto) 1.03 K/uL (0.24-0.82); Monocytes % (auto) 6.5 %; Neutrophils # (auto) 13.16 K/uL (1.4-6.5); Neutrophils % (auto) 83.3 %; Platelet Count 213 K/uL (130-400); RDW Coefficient of Variation 14.4 % (11.5-14.5); RDW Standard Deviation 41.5 fL (36.4-46.3); Red Blood Count 3.45 M/uL (3.93-5.22); White Blood Count 15.79 K/ul (4.8-10.8)
[2022-06-11] MEDS ORDERED: PRENATAL VITAMIN 1 TAB PO SCH (08:00)
[2022-06-11] MEDS ORDERED: FERROUS SULFATE 325 MG TAB PO SCH (08:00)
[2022-06-11] MEDS: PRENATAL VITAMIN 1 TAB PO SCH (08:24)
[2022-06-11] MEDS: FERROUS SULFATE 325 MG TAB PO SCH (08:24)
[2022-06-11] MEDS: SIMETHICONE 80 MG CHEW PO SCH ×4 (08:24→20:22)
[2022-06-11] MEDS: DOCUSATE SODIUM 100 MG CAP PO SCH ×2 (08:24→20:22)
[2022-06-11] MEDS ORDERED: ONDANSETRON INJ 2 MG/ML 2 ML VIAL IV PRN (10:55)
[2022-06-11] MEDS ORDERED: diphenhydrAMINE 50 MG/ML VIAL IV PRN (10:55)
[2022-06-11] MEDS ORDERED: ZOLPIDEM TARTRATE 5 MG TAB PO PRN (10:55)
[2022-06-11] MEDS ORDERED: diphenhydrAMINE Capsule 25 MG CAP PO PRN (10:55)
[2022-06-11] MEDS ORDERED: PROMETHAZINE HCL 25 MG in SODIUM CHLORIDE 0.9% 50 ML IV PRN (10:55)
[2022-06-11] MEDS: IBUPROFEN 600 MG TAB PO PRN ×3 (12:06→23:18)
[2022-06-11] MEDS: oxyCODONE/ACETAMINOPHEN 5mg/325mg TAB PO PRN ×3 (14:45→23:17)
[2022-06-11] MEDS ORDERED: bisacodyL 5 MG TABEC PO SCH ×2 (20:00)
[2022-06-12] MEDS: IBUPROFEN 600 MG TAB PO PRN ×2 (04:58→08:21)
[2022-06-12] MEDS: oxyCODONE/ACETAMINOPHEN 5mg/325mg TAB PO PRN ×2 (04:58→08:21)
--- NOTE | 2022-06-12 05:41 | Obstetrical Progress Note ---
Date of Service June 12, 2022 Assessment & Plan (1) care following delivery: (2) Gestational hypertension: (3) Failure to progress in labor: Plan - Overall, feeling well and eating regular diet w/o difficulty - Ambulating well throughout room - Infant formula feeding going well without concern - Urinating independently and moving bowels appropriately - Pain controlled w/ Ibuprofen and Percocet - Hgb / 8.4, Hgb / 8.4 - Routine PP care progressing well - Patient requesting discharge today - Recommend followup outpatient at 6 weeks PP Admission and Anticipated Discharge Date Admission Date: June 09, 2022 Supervising Physician Co-Signing Physician Notes Resident Physician Supervision Note: I was present with Dr. Leggett during the history and exam. I discussed the case with the resident and agree with the findings and plan as documented in the note. Any exceptions or clarifications are listed here: POD#2, doing well, DC home. Rx Percocet #20 tabs sent. Documented By: Sherry Brand, DO Subjective Today 06/12: Patient is a 32 y/o female who is POD#2 following delivery at 37w3d. Patient presented for IOL d/t GHTN, but ultimately required C/s due to failure to progress. Requesting to go home today. - Ambulation - throughout room - Voiding/Estrada - independently voiding, no dysuria or pressure - Gas/Stool - passing gas, had bowel movement - Diet -regular, no nausea or emesis - Lochia - diminishing, light amount - Infant Feeding Type - formula feeding, no breast pain - Pain Level - 0/10, controlled with Ibuprofen/Percocet Review of Systems - Denies fever, chills, sweats - Denies shortness of breath, difficulty breathing, chest pain, palpitations, chest pressure. - Denies breast pain. - Denies dysuria. - Denies headache or changes in vision. Physical Exam Physical Exam: General: Alert, oriented. No acute distress. Cardiac: RRR, normal S1/S2, no murmurs/rubs/gallops. Respiratory: Non-labored, CTAB, no wheezes/rales/rhonchi. Symmetric chest rise. Abdomen: Soft, mild TTP throughout, nondistended, no peritoneal signs. Bowel sounds present. Uterus: Uterine fundus firm, palpable 2 cm below umbilicus. No TTP. Incision clean and dry, no erythema, or purulence. Lower Extremities: 1+ lower extremity edema. No deep calf pain. Daniel's negative bilaterally. SCD off. Results & Data ([facility]) Vital Signs (Past 12 Hours) Vital Signs Temp Pulse Resp BP Pulse Ox O2 Del Method 06/11/22 23:20 37.3 C 83 18 127/84 06/11/22 20:05 36.6 C 90 18 137/90 97 Room Air Resident Activity Tracking Resident Involvement: Resident Care Provided Care Provided: OB Delivery
[2022-06-12 06:46] LABS: Hemoglobin 8.4 g/dl (12.0-16.0)
[2022-06-12] MEDS: FERROUS SULFATE 325 MG TAB PO SCH (08:21)
[2022-06-12] MEDS: PRENATAL VITAMIN 1 TAB PO SCH (08:21)
[2022-06-12] MEDS: SIMETHICONE 80 MG CHEW PO SCH (08:21)
[2022-06-12] MEDS: DOCUSATE SODIUM 100 MG CAP PO SCH (08:21)
[2022-06-12] MEDS ORDERED: bisacodyL 10 MG SUPP PR PRN ×2 (18:40→18:46)
--- NOTE | 2022-06-14 08:25 | Discharge Summary ---
Date of Service Date of admission 06/09/22 Date of discharge. 06/12/22 Admission HPI Per Admitting Provider Subjective: Consuelo is a 32 year old female currently 37w2d with PIERRE 06/28/22 based on LMP who is presenting to L&D today for induction of labor 2/2 gestational hypertension. She had a richardson bulb placed last evening which independently dislodged at 10 PM. She notes red-clumps and small amount of brown blood from the vagina since the richardson bulb was placed. She notes that she awakened every hour last night d/t pressure in her back, which is unusual for her. Patient denies headache or visual changes. She also denies any RUQ pain. She endorses o ngoing lower extremity swelling and bilateral calf pain. Complications: mild pre-eclampsia, gestational hypertension, obesity Reason for Induction/: gestational hypertension Movement: Present Fluid Loss/ROM: None Bloody show/discharge: Mild, light brown blood and small red clumps from vagina since placement of richardson bulb External FHT and uterine monitor: Category 1, baseline 145-150, good FHT variability, accelerations present w/o decelerations Last OB appointment: 06/08, regular care Labs: Blood Type: AB+ Antibody Screen: Negative Hg/Hct: 06/08 11.3/34.3, 06/09 11.5/34.6 WBC/Plt: 06/08 13.89/348, 06/09 13.57/319 Rubella: Immune RPR: Non-reactive Gonorrhea: Negative Chlamydia: Negative HIV: Negative HbSAg: Negative GBS: Negative Cff-DNA: Declined No COVID-19 or Flu vaccines [employer] Hx: No history of STD, last pap 1 year ago, no hx of abnormal pap, no prior Patient is having a baby girl. Patient and her partner plan to name the baby Brianna Chacon. Discharge Data Consultations 06/09/22 08:14 Consult Anesthesiology Stat Procedures Performed Operation Date: 06/10/22 16:30 Actual Procedures p Primary Low Transverse Section in LD- Life female child @ 1750(Bilateral) - Edie Landry MD, FACOG Hospital Course (1) Gestational hypertension: (2) care following delivery: (3) Obesity affecting : (4) Failure to progress in labor: Plan The patient received richardson ripening balloon night prior to admission. On day of admission began with pitocin and later in the day arom. Pitocin reached maximum of 30 that evening and then 40 the next day without evidence of adequate pattern by mvu's. Cervix dilated to 6cm but remained unchanged over several hours at 40 pitocin. Options reviewed. The patient underwent the above stated procedure without incident and her postoperative course and recovery was uncomplicated. On her postoperative day #2 she was tolerating a regular diet, voiding spontan eously, ambulating without problem and was using oral meds for adequate pain control. Her postoperative hemoglobin was 8.4. She was given written and verbal discharge instructions and told to followup in office at 6wks. She was given appropriate pain medicine prescriptions. Coding Level of Care Code None Diagnoses Gestational hypertension O13.9 care following delivery Z39.2 Obesity affecting O99.210 Failure to progress in labor O62.2
== END 2022-06-12 11:21 | disposition home or self-care (01) | DRG 788 ==
LOC: 4S1 07:41 → 4E2 06-10 22:04

== ENCOUNTER 2022-06-14 12:10 | Inpatient (IN) ==
--- NOTE | 2022-06-14 12:54 | Emergency Department Note ---
Impression & Plan Hypertensive emergency, Anemia, Volume overload, History of ED Provider Note NAME: YAIR MORAN AGE: 32 SEX: F : 1990 ARRIVES VIA: Walk-In INFORMANT: Patient, ED PROVIDER(S): Benjamin Ac MD Chief Complaint: Shortness of breath, outpatient referral, recently HPI: Patient presents at the behest of her TONGUE BINDER due to concern for shortness of breath and palpitations which she experienced this morning. The patient states that she seemed to be improved when she was upright. The patient has not had any productive cough. No fevers or chills. The patient denies any chest pains. The patient has had lower extremity swelling which has much improved since her section. The patient had noted that she seemed to have more left lower extremity edema compared to right lower extremity edema during the time of her . The patient did have a section due to concern for gestational hypertension but she did not progress with Pitocin at 37 weeks. Patient states she has had some slight vaginal spotting but does not complain of significant pain or significant bleeding. The patient has had no nausea or vomiting. The patient was never treated with any antihypertensives during her or hospitalization. No prior history of heart or lung disease and the patient denies any alcohol or tobacco use. The patient's section was 4 days ago. ROS: See HPI for pertinent positives and negatives. A total of 10 systems were reviewed and otherwise negative. Past medical history: See below Surgical history: See below Social history: See below Physical Exam: GENERAL: NAD, wearing a mask, non-toxic. EYE EXAM: Normal conjunctiva. PERRL, no anisocoria and EOM's grossly intact w/o pain. NECK: Supple, no nuchal rigidity, no adenopathy, non-tender. No signs of meningismus. FROM of the neck with good chin to chest and neck extension. No stridor. LUNGS: Decreased breath sounds bilateral bases, normal chest wall mechanics. HEART: NSR, no MRG. ABDOMEN: Abdomen soft, no significant swelling drainage bleeding or overlying skin changes to the patient's section incisional site, inactive bowel sounds, no masses, no rebound or guarding. BACK: No CVA TTP. SKIN: No rashes and no bruising. UPPER EXTREMITIES: Upper extremities are grossly normal. LOWER EXTREMITIES: Grossly normal, left greater than right lower extremity edema, no calf pain or erythema. Neurovascular intact with soft compartments throughout. NEURO EXAM: A&O x3, cranial nerves II-XII grossly intact, normal speech, moves all 4 extremities. Differential diagnoses: Reactive airway disease, pneumonia, pneumothorax, COPD, CHF, infections, cardiac ischemia, pulmonary embolism, musculoskeletal, gastrointestinal, as well as other pathologies. Course: Patient was seen and evaluated the bedside. Full history physical exam was performed. EKG interpreted by me Normal sinus rhythm, rate of 61, normal intervals, normal axis, T wave version anteriorly with no obvious ST elevations. No significant change for comparison September 18, 2015. Imaging Studies: See Below Cardiac monitoring: An order was placed for continuous cardiac monitoring. The monitor shows a rate of 65 with sinus rhythm. MDM: Patient presented due to concern for shortness of breath. The patient is otherwise well-appearing at the bedside. Blood work was obtained along with a chest x-ray ultrasound to D-dimer. The patient's blood work showed a normal white count with a hemoglobin of 9.8 which is slightly improved compared to 06/12. Patient's platelet count was unremarkable. Patient's kidney function was unremarkable. The patient does have mild elevation in AST. The patient has no headache. COVID-negative. The patient's chest x-ray shows possible pulmonary edema. Patient's DVT ultrasound was negative. The patient did have an elevated D-dimer so CT angiography of the chest was ordered. Patient CT angiography does not show any evidence of PE but does show concerns for pulmonary edema as well as moderate right and small left pleural effusions. Given this concern in addition to the patient's hypertension I am still concerned about preeclampsia. The patient denies any headache or visual symptoms. I did speak with on-call TONGUE BINDER physician Dr. Zamora who recommended magnesium bolus. The patient was given this in addition to IV labetalol and Lasix. BNP and troponin were added. I did send a [place] message to Dr. Fernandez with cardiology. I subsequently did speak with on-call hospitalist Dr. Carrera and the patient was admitted to the medicine service. The patient did have rapid improvement in her blood pressure after administration of the medications. The patient's BNP was elevated at 429. Troponin was not elevated. Critical Care: I have personally spent 75 minutes of critical care time in direct management of this patient. This includes bedside care, interpretation of diagnostic studies, and testing, discussion with consultants, patient, and family members, and other require inpatient management activities. This 75 minutes is in excess of all separately billable procedures. Past Med/Surg History Medical History Failed induction of labor Failure to progress in labor Obesity affecting Varicella vaccination Surgical History History of low transverse section S/P appendectomy S/P arthroscopic knee surgery Family History Father Diabetes Mother Hypertension Seizure disorder Aunt Lupus Denies family history of Ovarian cancer Breast cancer Colorectal cancer Social History Smoking Status: Never smoker Second Hand Exposure: No; Hx Alcohol Use: No Hx Substance Use: No Preferred Language: Citizen Of [place] Communication Ability: Effective Rest Room Matron Required: No Beliefs That Will Affect Care: None marital status: Single marital status details: partner Erin Urbano ([phone] Current Living Situation: Family Current Living Situation Comment: Lives with significant other, Hannah, 4 year old son, 1 dog, and 3 cats current occupational status: employed current occupation: [employer] Feels Safe at Home: Yes Assistive Devices: Glasses Allergies Allergies Allergy/AdvReac Type Severity Reaction Status Date / Time bupropion Allergy Headache Verified 06/08/22 15:57 glatiramer (copolymer 1) Allergy heart Verified 06/08/22 15:57 [From Copaxone] palpitations Home Meds Home Medications Medication Instructions Recorded Confirmed prenat.vits,tereso,[id number]-[id number] 1 tab PO DAILY 11/11/21 06/09/22 Previous Rx's Medication Instructions Recorded oxycodone-acetaminophen 5 mg-325 1 tab PO Q6H PRN pain #20 tabs 06/12/22 mg tablet (Percocet) Results & Data (ED) Vital Signs Vital Signs - 24 hr 06/14/22 12:21 06/14/22 13:00 06/14/22 13:30 Temperature 36.4 C L Temperature Source Temporal Artery Scan Pulse Rate 60 70 64 Pulse Rate from SpO2 Sensor Pulse Rhythm Regular Pulse Strength Normal Respiratory Rate 20 22 18 Respiratory Effort / Characteristics Non-Labored Spontaneous Respiratory Depth Normal Respiratory Pattern Regular Blood Pressure 160/102 H 181/120 H 165/105 H Blood Pressure Mean 121 140 125 Blood Pressure Position Sitting Pulse Oximetry 96 94 94 Oxygen Delivery Method Room Air Sepsis Recent Fever Within 48 Hours No Sepsis New/Unexplained Change in Mental Status No Sepsis Action Taken by Nursing No Action Required 06/14/22 12:26 06/14/22 14:27 06/14/22 14:30 Temperature Temperature Source Pulse Rate 60 62 Pulse Rate from SpO2 Sensor 60 60 Pulse Rhythm Pulse Strength Respiratory Rate 22 21 Respiratory Effort / Characteristics Non-Labored Spontaneous Respiratory Depth Respiratory Pattern Blood Pressure 229/126 H 217/119 H Blood Pressure Mean 160 151 Blood Pressure Position Pulse Oximetry 94 94 95 Oxygen Delivery Method Room Air Sepsis Recent Fever Within 48 Hours Sepsis New/Unexplained Change in Mental Status Sepsis Action Taken by Half-Way Medications Current Medication List: was personally reviewed by me Laboratory Data Attestation: I reviewed the patient's lab results. Result diagrams: 06/14/22 12:45 06/14/22 12:45 Lab Results 06/14/22 06/14/22 06/14/22 Range/Units 12:45 12:45 12:45 WBC 10.68 (4.8-10.8) K/ul RBC 3.74 L (3.93-5.22) M/uL Hgb 9.8 L (12.0-16.0) g/dl Hct 30.2 L (34.1-44.9) % MCV 80.7 (80.0-100.0) fL MCH 26.2 (25.0-34.0) pg MCHC 32.5 (32.0-36.0) g/dL RDW Std Deviation 41.6 (36.4-46.3) fL RDW Coeff of Monica 14.3 (11.5-14.5) % Plt Count 321 (130-400) K/uL MPV 11.2 (9.4-12.3) fL Immature Gran % (Auto) 2.8 % Neut % (Auto) 75.3 % Lymph % (Auto) 14.7 % [place] % (Auto) 5.4 % Eos % (Auto) 1.5 % Baso % (Auto) 0.3 % Neut # (Auto) 8.04 H (1.4-6.5) K/uL Lymph # (Auto) 1.57 (1.2-3.4) K/uL [place] # (Auto) 0.58 (0.24-0.82) K/uL Eos # (Auto) 0.16 (0-0.50) K/uL Baso # (Auto) 0.03 (0-0.2) K/uL Immature Gran # (Auto) 0.30 H (0.00-0.02) K/uL Absolute Nucleated RBC 0.05 H (0-0) K/uL Nucleated RBC % (auto) 0.5 % PT 10.0 (9.0-12.0) Seconds INR 0.9 (0.9-1.1) APTT 25.1 (21.0-31.0) Seconds PTT Ratio 0.9 D-Dimer 3210 H* (0-500) ug/L FEU Sodium 142 (136-145) mmol/L Potassium 4.2 (3.5-5.1) mmol/L Chloride 110 H (98-107) mmol/L Carbon Dioxide 22 (21-32) mmol/L Anion Gap 10 (3-11) BUN 13 (6-23) mg/dl Creatinine 0.88 (0.6-1.2) mg/dl Est Cr Clr Drug Dosing 120.4 ml/min Est GFR ( Amer) 101.5 ml/min Est GFR (Non-Af Amer) 87.6 ml/min BUN/Creatinine Ratio 14.8 (10-20) Glucose 76 (70-99(Fasting)) mg/dl Calcium 8.6 (8.5-10.1) mg/dl Magnesium 1.9 (1.7-2.4) mg/dl Total Bilirubin 0.4 (0.2-1.0) mg/dl AST 55 H (13-39) U/L ALT 46 (7-52) U/L Alkaline Phosphatase 156 H (34-104) U/L Total Protein 5.9 L (6.0-8.3) gm/dl Albumin 3.0 L (3.4-5.0) gm/dl Globulin 2.9 (2.5-4.0) gm/dl Albumin/Globulin Ratio 1.0 (0.9-2) Procalcitonin (0-0.5) ng/ml SARS-CoV-2, RNA, NAAT (NEGATIVE) 06/14/22 06/14/22 06/14/22 Range/Units 12:45 12:45 16:00 WBC (4.8-10.8) K/ul RBC (3.93-5.22) M/uL Hgb (12.0-16.0) g/dl Hct (34.1-44.9) % MCV (80.0-100.0) fL MCH (25.0-34.0) pg MCHC (32.0-36.0) g/dL RDW Std Deviation (36.4-46.3) fL RDW Coeff of Monica (11.5-14.5) % Plt Count (130-400) K/uL MPV (9.4-12.3) fL Immature Gran % (Auto) % Neut % (Auto) % Lymph % (Auto) % St[place] % (Auto) % Eos % (Auto) % Baso % (Auto) % Neut # (Auto) (1.4-6.5) K/uL Lymph # (Auto) (1.2-3.4) K/uL [place] # (Auto) (0.24-0.82) K/uL Eos # (Auto) (0-0.50) K/uL Baso # (Auto) (0-0.2) K/uL Immature Gran # (Auto) (0.00-0.02) K/uL Absolute Nucleated RBC (0-0) K/uL Nucleated RBC % (auto) % PT (9.0-12.0) Seconds INR (0.9-1.1) APTT (21.0-31.0) Seconds PTT Ratio D-Dimer Cancelled (0-500) ug/L FEU Sodium (136-145) mmol/L Potassium (3.5-5.1) mmol/L Chloride (98-107) mmol/L Carbon Dioxide (21-32) mmol/L Anion Gap (3-11) BUN (6-23) mg/dl Creatinine (0.6-1.2) mg/dl Est Cr Clr Drug Dosing ml/min Est GFR ( Amer) ml/min Est GFR (Non-Af Amer) ml/min BUN/Creatinine Ratio (10-20) Glucose (70-99(Fasting)) mg/dl Calcium (8.5-10.1) mg/dl Magnesium (1.7-2.4) mg/dl Total Bilirubin (0.2-1.0) mg/dl AST (13-39) U/L ALT (7-52) U/L Alkaline Phosphatase (34-104) U/L Total Protein (6.0-8.3) gm/dl Albumin (3.4-5.0) gm/dl Globulin (2.5-4.0) gm/dl Albumin/Globulin Ratio (0.9-2) Procalcitonin 0.05 (0-0.5) ng/ml SARS-CoV-2, RNA, NAAT NEGATIVE (NEGATIVE) Administered Medications Magnesium Sulfate (Magnesium Sulfate / Wtr) 40 gm in 1,000 mls @ 50 mls/hr IV .Q20H LILY Stop: 07/14/22 16:14 Last Admin: 06/14/22 16:20 Dose: 50 mls/hr Documented By: GLORIA Co-signed By: SHAUN Discontinued Medications Nicardipine HCl 25 mg/ Sodium (Chloride) 250 mls @ 50 mls/hr IV .Q5H LILY; Protocol Stop: 07/14/22 15:59 Last Admin: 06/14/22 17:24 Dose: Not Given Documented By: GLORIA Ioversol (Optiray 300 500ml) 117 ml IV ONCE ONE Stop: 06/14/22 14:25 Last Admin: 06/14/22 14:24 Dose: 117 ml Documented By: MANN Labetalol HCl (Labetalol Hcl Iv 5 Mg/Ml 20ml) 10 mg IV NOW STA Stop: 06/14/22 15:12 Last Admin: 06/14/22 15:52 Dose: 10 mg Documented By: GLORIA Co-signed By: SHELBY Labetalol HCl (Labetalol Hcl Iv 5 Mg/Ml 20ml) 10 mg IV NOW STA Stop: 06/14/22 15:59 Last Admin: 06/14/22 16:29 Dose: Not Given Documented By: GLORIA Magnesium Sulfate (Mag Sulfate 4gm Bolus From Bag) 4 gm IV ONE ONE Stop: 06/14/22 16:02 Last Admin: 06/14/22 16:20 Dose: 4 gm Documented By: GLORIA Co-signed By: SHAUN Imaging Data Radiologist's Impression: Chest X-Ray 06/14/22 12:26 XR chest 1V portable HISTORY: 32 years-old Female SOB acute shortness of breath COMPARISON: None TECHNIQUE: Portable AP view of the chest FINDINGS: Cardiac silhouette is enlarged. No pneumothorax, or large pleural effusion. There is diffuse coarsening of the interstitium with pulmonary vascular congestion. Bones of the chest appear grossly intact. IMPRESSION: Reticular interstitial opacities are suggestive of pulmonary edema. An interstitial pneumonia could appear similarly. ACT 112: Negative or not required by law. The above report was generated using voice recognition software. It may contain grammatical, syntax or spelling errors. Electronically signed by: Dandre Linares M.D. 06/14/2022 1:30 PM Venous Doppler Study 06/14/22 13:15 ULTRASOUND LEFT LOWER EXTREMITY VENOUS CLINICAL HISTORY: Left leg swelling. COMPARISON STUDY: No priors. TECHNIQUE: Real-time, grayscale, and color Doppler sonography of the deep veins of the left lower extremity was performed from the inguinal crease to the calf. Compression and augmentation were utilized. FINDINGS: There is no sonographic evidence of deep venous thrombosis identified in the left lower extremity. The common femoral, superficial femoral, and popliteal veins are patent and normally compressible. The greater saphenous vein and the profunda femoris vein at the junction with the common femoral vein are clear. The visualized calf veins are patent. IMPRESSION: There is no sonographic evidence of deep venous thrombosis identifi ed in the left lower extremity. ACT 112: Negative or not required by law. Electronically signed by: Freddie Obrien M.D. 06/14/2022 2:09 PM Chest CTA 06/14/22 13:58 CT ANGIOGRAPHY OF THE CHEST, PULMONARY EMBOLUS PROTOCOL CLINICAL HISTORY: PE, SOB, +dimer, recent surgery COMPARISON STUDY: Chest radiograph performed earlier today. TECHNIQUE: Following IV administration of 117 mL of Optiray, helical axial images of the chest were obtained utilizing the pulmonary embolus protocol. Maximal intensity projections and sagittal and coronal reformats were viewed on an independent 3D workstation. IV contrast was administered without complication. Automated exposure control was utilized for the study. A dose lowering technique was utilized adhering to the principles of ALARA. CT DOSE: 675.37 mGycm FINDINGS: No pulmonary emboli are identified. There is no thoracic aortic dissection. No pericardial effusion is present. No enlarged thoracic lymph nodes are noted. Moderate right and small left pleural effusions are noted. There is no pneumothorax. Moderate interlobular septal thickening is noted. There are also airspace opacities scattered throughout the lungs. Central airways are patent. Borderline splenomegaly is noted. There is trace perihepatic ascites. IMPRESSION: 1. No pulmonary emboli identified. 2. Interlobular septal thickening consistent with interstitial pulmonary edema. Scattered airspace opacities throughout the lungs likely reflect alveolar edema. A superimposed infectious process is considered less likely. 3. Moderate right and small left pleural effusions. ACT 112: Negative or not required by law. Electronically signed by: Remigio Owens M.D. 06/14/2022 2:37 PM Discharge Plan Visit Data Chief Complaint: Shortness of Breath/Dyspnea Stated Complaint: C SECTION, HEART PALPITATIONS, SOB ED Provider: Benjamin Ac Discharge Problem: Hypertensive emergency, Anemia, Volume overload, History of Patient Disposition: Admitted As Inpatient Discharge Instructions Interventions: ED Discharge Assessment Last Done: 06/14/22 17:56
[2022-06-14 13:19] LABS: Basophils # (auto) 0.03 K/uL (0-0.2); Basophils % (auto) 0.3 %; Eosinophils # (auto) 0.16 K/uL (0-0.50); Eosinophils % (auto) 1.5 %; Hematocrit (blood only) 30.2 % (34.1-44.9); Hemoglobin 9.8 g/dl (12.0-16.0); Immature Granulocytes % (auto) 2.8 %; Lymphocytes # (auto) 1.57 K/uL (1.2-3.4); Lymphocytes % (auto) 14.7 %; Mean Corpuscular Hemoglobin 26.2 pg (25.0-34.0); Mean Corpuscular Hgb Conc 32.5 g/dL (32.0-36.0); Mean Corpuscular Volume 80.7 fL (80.0-100.0); Mean Platelet Volume 11.2 fL (9.4-12.3); Monocytes # (auto) 0.58 K/uL (0.24-0.82); Monocytes % (auto) 5.4 %; Neutrophils # (auto) 8.04 K/uL (1.4-6.5); Neutrophils % (auto) 75.3 %; Nucleated RBC # (auto) 0.05 K/uL (0-0); Nucleated RBC % (auto) 0.5 %; Platelet Count 321 K/uL (130-400); RDW Coefficient of Variation 14.3 % (11.5-14.5); RDW Standard Deviation 41.6 fL (36.4-46.3); Red Blood Count 3.74 M/uL (3.93-5.22); White Blood Count 10.68 K/ul (4.8-10.8)
--- NOTE | 2022-06-14 13:32 | XRay Report ---
XR chest 1V portable HISTORY: 32 years-old Female SOB acute shortness of breath COMPARISON: None TECHNIQUE: Portable AP view of the chest FINDINGS: Cardiac silhouette is enlarged. No pneumothorax, or large pleural effusion. There is diffuse coarseni ng of the interstitium with pulmonary vascular congestion. Bones of the chest appear grossly intact. IMPRESSION: Reticular interstitial opacities are suggestive of pulmonary edema. An interstitial pneum onia could appear similarly. ACT 112: Negative or not required by law. The above report was generated using voice recognition software. It may contain grammatical, syntax o r spelling errors. Electronically signed by: Dandre Linares M.D. 06/14/2022 1:30 PM
[2022-06-14 13:34] LABS: INR 0.9 (0.9-1.1); Partial Thromboplastin Ratio 0.9; Partial Thromboplastin Time 25.1 Seconds (21.0-31.0)
[2022-06-14 13:38] LABS: D Dimer 3210 ug/L FEU (0-500)
[2022-06-14 13:41] LABS: BUN Creatinine Ratio 14.8 (10-20); Bilirubin,Total 0.4 mg/dl (0.2-1.0); Calcium 8.6 mg/dl (8.5-10.1); Creatinine Clr Calc Pharmacy 120.4 ml/min; Est GFR (African American) 101.5 ml/min; Est GFR (Non-African American) 87.6 ml/min; Globulin 2.9 gm/dl (2.5-4.0); Magnesium 1.9 mg/dl (1.7-2.4); Potassium 4.2 mmol/L (3.5-5.1); Total Protein 5.9 gm/dl (6.0-8.3)
--- NOTE | 2022-06-14 14:10 | Ultrasound Report ---
ULTRASOUND LEFT LOWER EXTREMITY VENOUS CLINICAL HISTORY: Left leg swelling. COMPARISON STUDY: No priors. TECHNIQUE: Real-time, grayscale, and color Doppler sonography of the deep veins of the left lower ext remity was performed from the inguinal crease to the calf. Compression and augmentation were utilized . FINDINGS: There is no sonographic evidence of deep venous thrombosis identified in the left lower ext remity. The common femoral, superficial femoral, and popliteal veins are patent and normally compress ible. The greater saphenous vein and the profunda femoris vein at the junction with the common femora l vein are clear. The visualized calf veins are patent. IMPRESSION: There is no sonographic evidence of deep venous thrombosis identified in the left lower e xtremity. ACT 112: Negative or not required by law. Electronically signed by: Freddie Obrien M.D. 06/14/2022 2:09 PM
[2022-06-14] MEDS ORDERED: OPTIRAY 300 500mL IV ONE (14:24)
--- NOTE | 2022-06-14 14:39 | CT Scan Report ---
CT ANGIOGRAPHY OF THE CHEST, PULMONARY EMBOLUS PROTOCOL CLINICAL HISTORY: PE, SOB, +dimer, recent surgery COMPARISON STUDY: Chest radiograph performed earlier today. TECHNIQUE: Following IV administration of 117 mL of Optiray, helical axial images of the chest were o btained utilizing the pulmonary embolus protocol. Maximal intensity projections and sagittal and cor onal reformats were viewed on an independent 3D workstation. IV contrast was administered without co mplication. Automated exposure control was utilized for the study. A dose lowering technique was ut ilized adhering to the principles of ALARA. CT DOSE: 675.37 mGycm FINDINGS: No pulmonary emboli are identified. There is no thoracic aortic dissection. No pericardial effusion is present. No enlarged thoracic lymph nodes are noted. Moderate right and small left pleur al effusions are noted. There is no pneumothorax. Moderate interlobular septal thickening is noted. T here are also airspace opacities scattered throughout the lungs. Central airways are patent. Borderli ne splenomegaly is noted. There is trace perihepatic ascites. IMPRESSION: 1. No pulmonary emboli identified. 2. Interlobular septal thickening consistent with interstitial pulmonary edema. Scattered airspace op acities throughout the lungs likely reflect alveolar edema. A superimposed infectious process is cons idered less likely. 3. Moderate right and small left pleural effusions. ACT 112: Negative or not required by law. Electronically signed by: Remigio Owens M.D. 06/14/2022 2:37 PM
[2022-06-14] MEDS ORDERED: LABETALOL HCL IV 5 MG/ML 20ML IV STA ×2 (15:11→15:58)
[2022-06-14] MEDS ORDERED: MAGNESIUM SULFATE / D5W 1 GM/100 ML BAG IV SCH (15:11)
[2022-06-14] MEDS ORDERED: FUROSEMIDE 40 MG/4 ML VIAL IV ONE (15:18)
[2022-06-14] MEDS ORDERED: STAT IV Infusion **Titration per Protocol STA (15:59)
[2022-06-14] MEDS ORDERED: MAG SULFATE 4GM BOLUS FROM BAG IV ONE (16:01)
--- NOTE | 2022-06-14 16:11 | OB/GYN Consultation ---
Date of Consultation June 14, 2022 Assessment & Plan (1) Gestational hypertension: Blood pressures in the severe range emergency department given labetalol and initial response went from 217 systolic to 191 again the patient is asymptomatic I advised blood pressure control to aim for systolic under 160 and diastolic under 110-105 range labetalol or nifedipine variance would be first choice. The medical team is involved as well and they will admit as the patient does have chest tightness I would suggest a telemetry bed magnesium sulfate has been ordered and we will run this as well both the bolus and continuous we will watch her carefully Estrada catheter recommended for urine output as well discussed with the patient gestational hypertension with severe features Her labs are reviewed these are mainly normal as well with no change in platelets liver enzymes Are minimally elevated AST to 55 or creatinine History of Present Illness History of Present Illness I feel bad for you guys but patient is 5 days post section presented with chest tightness emergency room on and assessment she had elevated blood pressures in the severe range she has no headache no visual disturbances no right upper quadrant pain. She feels the chest tightness and is concerned about this. Her baby is doing fine states her incision is healing well she has no extremity pain Allergies Allergy/AdvReac Type Severity Reaction Status Date / Time bupropion Allergy Headache Verified 06/08/22 15:57 glatiramer (copolymer 1) Allergy heart Verified 06/08/22 15:57 [From Copaxone] palpitations Home Medications Medication Instructions Recorded Confirmed Type prenat.vits,tereso,zsv-qptb-lybxv 1 tab PO DAILY 11/11/21 06/09/22 History oxycodone-acetaminophen 5 mg-325 1 tab PO Q6H PRN pain #20 tabs 06/12/22 Rx mg tablet (Percocet) Patient History Medical History Failed induction of labor Failure to progress in labor Obesity affecting Varicella vaccination Surgical History History of low transverse section S/P appendectomy S/P arthroscopic knee surgery Family History Father Diabetes Mother Hypertension Seizure disorder Aunt Lupus Denies family history of Ovarian cancer Breast cancer Colorectal cancer Social History Smoking Status: Never smoker Second Hand Exposure: No; Do You Dip or Chew Tobacco: No; Tobacco Cessation Education Requested by Patient: No Hx Alcohol Use: Yes Alcohol type: beer Hx Substance Use: No Preferred Language: [place] Communication Ability: Effective Digital Project Manager Required: No Beliefs That Will Affect Care: None marital status: Single marital status details: partner Erin Urbano (26) [phone] Current Living Situation: Significant Other Current Living Situation Comment: Lives with significant other, Hannah, 4 year old son, 1 dog, and 3 cats current occupational status: employed current occupation: [employer] Other Information That Helps Us Care for You: No Feels Safe at Home: Yes Safety Concerns: Feels Safe At This Time Assistive Devices: None Review of Systems Constitutional: as per Subjective / HPI Physical Exam Constitutional: WD/WN, vitals as above well developed and well nourished Respiratory: normal respiratory effort, lungs clear to auscultation normal respiratory effort Cardiovascular: RRR, no murmur, no edema Gastrointestinal (Abdomen): normal bowel sounds, soft, nontender, no hepatosplenomegaly Results & Data ([facility]) Vital Signs (Past 12 Hours) Vital Signs Temp Pulse Resp BP Pulse Ox O2 Del Method 06/14/22 14:30 62 21 217/119 H 95 06/14/22 14:27 60 22 229/126 H 94 06/14/22 12:26 94 Room Air 06/14/22 13:30 64 18 165/105 H 94 06/14/22 13:00 70 22 181/120 H 94 06/14/22 12:21 97.5 F L 60 20 160/102 H 96 Room Air PG Care Time/CCT Total # of Minutes Spent Total Time Spent with Patient: Total time spent is greater than 50% in coordination of care (as documented) at patient's floor/unit and/or counseling patient: Coding Level of Care Code 22164 Office/Outpt Visit, Est Diagnoses Gestational hypertension O13.9
[2022-06-14] MEDS: MAGNESIUM SULFATE / WTR 40 GM/1,000 ML BAG IV SCH (16:20)
--- NOTE | 2022-06-14 16:38 | History & Physical Report ---
Date of Service June 14, 2022 Assessment & Plan (1) hypertension: Plan: -Admit to the PCU -Patient is currently afebrile, Hypertensive, and stable on RA -Hypertension is likely still occurring from previous gestational hypertension, ARC WELDING MACHINE OPERATOR is following closely during admission, appreciate their help. Will admit to the PCU due to chest pain for now. -Given 10 mg IV labetalol in the ED with mild improvement to systolics in the 180's. -Has been loaded with 4g mag sulfate by center mgr, they would like to continue on IV mag sulfate at 2g/hr for now for seizure prophylaxis -Patient's BP improved to 156/106 after the magnesium infusion, will hold Nicardipine drip for now and will add prn labetalol, 5 mg IV q4h prn for systolic BP > 160 mmhg (hold for HR less than 60) -Continue to monitor closely for refractory HTN or concerning signs such as neurologic changes, seizure, worsening ches pain, respiratory distress, and abdominal pain -Ordered Estrada cath, monitor intake and output closely -Monitor on tele, pulse oximetry, and seizure precautions (2) Pulmonary edema: Plan: -Noted on Chest xray and CTA today -Question of infectious etiology as well on both readings, patient has been afebrile, without leukocytosis, and stable on RA. At this time it looks more as though the patient developed flash pulmonary edema from her hypertension, likely also got lots of IV fluids on her last admisison -Will hold abx for now and will add on procal -Given 40 mg IV lasx in the ED, monitor for adequate response -Currently stable on RA, will continue to monitor on tele and pulse oximetry, will repeat chest xray this evening to ensure her pulmonary edema is improving (3) Chest pain: Plan: -At this time her chest pain could be associated with her pulmonary edema, but cannot rule out cardiac etiology or musculoskeletal pain at this time. -No acute ECG changes noted -Ordering STAT troponin now and then will trend q6h x 3 to monitor -Will monitor for improvement with improvement in blood pressure -Continue to monitor on tele (4) Lower back pain: Plan: -Was noted on previous admission but continued to have some mid back pain today -CTA negative for thoracic aortic dissection -Will try tylenol and lidocaine patch for now, continue to monitor Plan The patient was seen with and discussed with Dr. Carrera at the time of admission History of Present Illness Chief Complaint: Chest discomfort Primary Care Provider: Gabriela Cuevas MD Consuelo is a 32 yr female with a PMH significant for recent admission due to gestational HTN requiring Primary Low Transverse Section on 06/10/22 who presented to the [facility] ED on 06/14/22 with a chief complaint of chest tightness. Per chart review, the patient was admitted from 06/09/22 to 06/12/22 with ARC WELDING MACHINE OPERATOR as the primary team. The patient underwent delivery on 06/10/22 due to her issues with Gestational Hypertension. Per the documentation, the patient had no complications and tolerated the procedure well. She was discharged home on Tylenol and Motrin for pain control and was instructed to finish her vitamins. The patient states that yesterday afternoon she started developing substernal chest discomfort which she states was it's highest at a 5/10 but is currently a 2-3/10. She describes the chest discomfort as a dull/aching pain which is exacerbated with movement. She denies the pain radiating to her arms or neck but does note some mid back pain which started around the same time yesterday. The patient states that her surgical site has been healing well, she notes so hematuria but thinks it is from her recent procedure. She denies any dysuria since discharge. Besides these symptoms the patient does not have any other complaints at this time, she denies recent fevers, chills, headache, changes in vision, hearing, taste, and smell, abdominal pain, vomiting, dysuria, and recent falls. In the ED the patient was found to be hypertensive at 217/119, afebrile and stable on room air. Labs were significant for stable Hgb, D-dimer of 3210, AST of 55, Alk phos of 156. Chest xray showed "Reticular interstitial opacities are suggestive of pulmonary edema. An interstitial pneumonia could appear similarly.". Venous doppler of the LLE was negative for DVT. CTA of the chest was negative for PE but did show "Interlobular septal thickening consistent with interstitial pulmonary edema. Scattered airspace opacities throughout the lungs likely reflect alveolar edema. A superimposed infectious process is considered less likely Moderate right and small left pleural effusions". The CTA was negative for thoracic aortic dissection. Prior to admission the patient was given 10 mg IV labetalol, and 40 mg IV lasix. Allergies Allergy/AdvReac Type Severity Reaction Status Date / Time bupropion Allergy Headache Verified 06/08/22 15:57 glatiramer (copolymer 1) Allergy heart Verified 06/08/22 15:57 [From Copaxone] palpitations Home Medications Medication Instructions Recorded Confirmed Type prenat.vits,tereso,wjl-bgpe-ajctg 1 tab PO DAILY 11/11/21 06/09/22 History oxycodone-acetaminophen 5 mg-325 1 tab PO Q6H PRN pain #20 tabs 06/12/22 Rx mg tablet (Percocet) Past Med/Surg History Medical History (Updated 06/14/22 @ 16:54 by Walter Brothers PA-C) Failed induction of labor Failure to progress in labor Obesity affecting Varicella vaccination Surgical History (Updated 06/14/22 @ 16:54 by Walter Brothers PA-C) History of low transverse section S/P appendectomy S/P arthroscopic knee surgery Family History Father Diabetes Mother Hypertension Seizure disorder Aunt Lupus Denies family history of Ovarian cancer Breast cancer Colorectal cancer Social History Smoking Status: Never smoker Second Hand Exposure: No; Hx Alcohol Use: No Hx Substance Use: No Preferred Language: Dominican Communication Ability: Effective Cashier Clerk Required: No Beliefs That Will Affect Care: None marital status: Single marital status details: partner Erin Urbano ([id number]) [phone] Current Living Situation: Family Current Living Situation Comment: Lives with significant other, Hannah, 4 year old son, 1 dog, and 3 cats current occupational status: employed current occupation: [employer] Feels Safe at Home: Yes Assistive Devices: Glasses Review of Systems Review of Systems: Denies current fever, chills, headache, changes in vision, hearing, taste, and smell, abdominal pain, nausea, vomiting, diarrhea, hematemesis, melena, dysuria, hematuria, and recent falls. All systems have been reviewed and are otherwise negative. Physical Exam Physical Exam: Physical Exam: General: In mild distress due to anxiety of her current state, stated age, well-nourished, good hygiene HEENT: Normocephalic, atraumatic, no scleral icterus, pupils around round, symmetrical, and reactive to light, moist mucus membranes, trachea midline, no thyromegaly Chest/Pulm: No respiratory distress, symmetrical chest expansion, decreased breath sounds in the BL lower lung franks Cardiac: RRR, no murmurs noted Abdomen: Negative for ascites and bruising, normoactive bowel sounds, soft, non-tender to palpation throughout : recent scar is intact and without signs of infection Musculoskeletal: Symmetrical and without signs of acute trauma, upper and lower extremities with full ROM, no atrophy, spasticity, or flaccidity Extremities: Radial, dorsalis pedis, and posterior tibial pulses are intact and symmetrical, no edema noted in the BL LE's Skin: Warm, dry, no rashes , lesions, or scars noted Neuro: Alert and oriented to person, place, month, year, and president, no focal defects, CN II-XII tested and intact, finger to nose test negative, no tremors noted Psych: No acute distress, calm and cooperative during the exam Results & Data Results & Data ([facility]) Vital Signs (Past 12 Hours) Vital Signs Temp Pulse Resp BP Pulse Ox O2 Del Method 06/14/22 14:30 62 21 217/119 H 95 06/14/22 14:27 60 22 229/126 H 94 06/14/22 12:26 94 Room Air 06/14/22 13:30 64 18 165/105 H 94 06/14/22 13:00 70 22 181/120 H 94 06/14/22 12:21 36.4 C L 60 20 160/102 H 96 Room Air Laboratory Results Abnormal lab results 06/14/22 06/14/22 06/14/22 Range/Units 12:45 12:45 12:45 RBC 3.74 L (3.93-5.22) M/uL Hgb 9.8 L (12.0-16.0) g/dl Hct 30.2 L (34.1-44.9) % Neut # (Auto) 8.04 H (1.4-6.5) K/uL Immature Gran # (Auto) 0.30 H (0.00-0.02) K/uL Absolute Nucleated RBC 0.05 H (0-0) K/uL D-Dimer 3210 H* (0-500) ug/L FEU Chloride 110 H (98-107) mmol/L AST 55 H (13-39) U/L Alkaline Phosphatase 156 H (34-104) U/L Total Protein 5.9 L (6.0-8.3) gm/dl Albumin 3.0 L (3.4-5.0) gm/dl Diagnostic Findings Chest X-Ray 06/14/22 12:26 XR chest 1V portable HISTORY: 32 years-old Female SOB acute shortness of breath COMPARISON: None TECHNIQUE: Portable AP view of the chest FINDINGS: Cardiac silhouette is enlarged. No pneumothorax, or large pleural effusion. There is diffuse coarsening of the interstitium with pulmonary vascular congestion. Bones of the chest appear grossly intact. IMPRESSION: Reticular interstitial opacities are suggestive of pulmonary edema. An interstitial pneumonia could appear similarly. ACT 112: Negative or not required by law. The above report was generated using voice recognition software. It may contain grammatical, syntax or spelling errors. Electronically signed by: Dandre Linares M.D. 06/14/2022 1:30 PM Venous Doppler Study 06/14/22 13:15 ULTRASOUND LEFT LOWER EXTREMITY VENOUS CLINICAL HISTORY: Left leg swelling. COMPARISON STUDY: No priors. TECHNIQUE: Real-time, grayscale, and color Doppler sonography of the deep veins of the left lower extremity was performed from the inguinal crease to the calf. Compression and augmentation were utilized. FINDINGS: There is no sonographic evidence of deep venous thrombosis identified in the left lower extremity. The common femoral, superficial femoral, and popliteal veins are patent and normally compressible. The greater saphenous vein and the profunda femoris vein at the junction with the common femoral vein are clear. The visualized calf veins are patent. IMPRESSION: There is no sonographic evidence of deep venous thrombosis identified in the left lower extremity. ACT 112: Negative or not required by law. Electronically signed by: Freddie Obrien M.D. 06/14/2022 2:09 PM Chest CTA 06/14/22 13:58 CT ANGIOGRAPHY OF THE CHEST, PULMONARY EMBOLUS PROTOCOL CLINICAL HISTORY: PE, SOB, +dimer, recent surgery COMPARISON STUDY: Chest radiograph performed earlier today. TECHNIQUE: Following IV administration of 117 mL of Optiray, helical axial images of the chest were obtained utilizing the pulmonary embolus protocol. Maximal intensity projections and sagittal and coronal reformats were viewed on an independent 3D workstation. IV contrast was administered without complication. Automated exposure control was utilized for the study. A dose lowering technique was utilized adhering to the principles of ALARA. CT DOSE: 675.37 mGycm FINDINGS: No pulmonary emboli are identified. There is no thoracic aortic dissection. No pericardial effusion is present. No enlarged thoracic lymph nodes are noted. Moderate right and small left pleural effusions are noted. There is no pneumothorax. Moderate interlobular septal thickening is noted. There are also airspace opacities scattered throughout the lungs. Central airways are patent. Borderline splenomegaly is noted. There is trace perihepatic ascites. IMPRESSION: 1. No pulmonary emboli identified. 2. Interlobular septal thickening consistent with interstitial pulmonary edema. Scattered airspace opacities throughout the lungs likely reflect alveolar edema. A superimposed infectious process is considered less likely. 3. Moderate right and small left pleural effusions. ACT 112: Negative or not required by law. Electronically signed by: Remigio Owens M.D. 06/14/2022 2:37 PM ECG Additional Comments: Normal sinus rhythm Nonspecific ST and T wave abnormality Abnormal ECG When compared with ECG of 18-SEP-2015 14:52, No significant change was found Code Status & VTE Plan Code Status Full code VTE Prophylaxis Plan VTE Prophylaxis will be ordered: Yes Supervising Physician Co-Signing Physician Notes Patient seen and examined, chart reviewed, case discussed with Walter Brothers PA-C and I agree with the assessment and plan as above except as otherwise noted Labs and images reviewed Patient seen for severe hypertension with chest pain. At bedside assessment patient is systolic 200s, with chest pain, and anxious/tearful. Heart rate is regular, lungs are clear. Discussed with ARC WELDING MACHINE OPERATOR and PA. Patient given labetalol 10 mg with some but inadequate improvement in pressure. Mag load and 2 g IV hourly for seizure prophylaxis initiated by OB. Given borderline bradycardia in low 60s, additional labetalol was deferred and nicardi pine drip was ordered for blood pressure control. Following bag and initial labetalol patient's blood pressure did improve to less than 160 systolic and pulse mid 60s. Cardene drip held and 5 mg labetalol on-call orders added for hypertension control. If this is inadequate or limited by heart rate less than 60, initiate nicardipine drip at that time, goal blood pressure [id number]. Given concurrent running high dose magnesium would target around 140s due to risk of precipitous hypotension. Chest pain improved with blood pressure improvement. Troponin and cardiac ultrasound pending. Continue to monitor on telemetry. PG Care Time/CCT Total # of Minutes Spent Total Time Spent with Patient: Total time spent is greater than 50% in coordination of care (as documented) at patient's floor/unit and/or counseling patient: [place] [address] Initial Inpt Care Lvl 3 Patient Type Established Medical Decision Making High Complexity Diagnoses hypertension O16.5 Pulmonary edema J81.1 Chest pain R07.9 Lower back pain M54.5
[2022-06-14] MEDS: niCARdipine 25 MG in SODIUM CHLORIDE 0.9% 240 ML IV SCH ×2 (17:24→20:06)
--- NOTE | 2022-06-14 18:01 | Electrocardiogram Report ---
Test Reason : Blood Pressure : / mmHG Vent. Rate : 061 BPM Atrial Rate : 061 BPM P-R Int : 136 ms QRS Dur : 082 ms QT Int : 432 ms P-R-T Axes : 005 038 054 degrees QTc Int : 434 ms Normal sinus rhythm Nonspecific ST and T wave abnormality Abnormal ECG When compared with ECG of 18-SEP-2015 14:52, No significant change was found Confirmed by Randy Fernandez ([id number]) on 06/14/2022 6:01:08 PM Referred By: REFERRED SELF Confirmed By:Mark Fernandez
[2022-06-14] MEDS ORDERED: LABETALOL HCL IV 5 MG/ML 20ML IV PRN (18:21)
[2022-06-14 22:48] LABS: Appearance Urine Clear (Clear); Bilirubin Urine Negative (Negative); Blood Urine Negative (Negative); Color Urine Yellow; Glucose Urine UA Negative (Negative); Ketones Urine Negative (Negative); Leukocyte Esterase Urine Negative (Negative); Nitrite Urine Negative (Negative); Protein Urine Negative (Negative); Specific Gravity Urine 1.007 (1.000-1.030); Urobilinogen Urine Negative (Negative); pH Urine 7.5 (4.5-7.5)
[2022-06-14 23:07] LABS: BUN Creatinine Ratio 14.3 (10-20); Calcium 8.8 mg/dl (8.5-10.1); Creatinine Clr Calc Pharmacy 120.1 ml/min; Est GFR (African American) 97.4 ml/min; Est GFR (Non-African American) 84.1 ml/min; Magnesium Therapeutic L&D Only 4.1 mg/dL (4.0-8.0); Potassium 3.4 mmol/L (3.5-5.1)
[2022-06-15] MEDS: niCARdipine 25 MG in SODIUM CHLORIDE 0.9% 240 ML IV SCH ×6 (01:00→20:03)
--- NOTE | 2022-06-15 07:23 | Obstetrical Progress Note ---
Date of Service June 15, 2022 Assessment & Plan (1) hypertension: Plan: Patient is diuresed fairly well overnight she will need 24 hours of magnesium sulfate coverage which will be later tonight for this to finish Estrada catheter should stay in place during that time and MPL. Will check again labs this morning. If the patient could come off of her antihypertensive drip into a oral regimen she might then be able to come to the fourth floor I think at the time with the drip she will have to remain in the second floor unit. We will follow closely Admission and Anticipated Discharge Date Admission Date: June 14, 2022 Subjective Patient feels somewhat better although she still does have some chest tightness and she has a modest headache Results & Data ([facility]) Vital Signs (Past 12 Hours) Vital Signs Temp Pulse Pulse Resp BP BP Pulse Ox 06/15/22 05:30 86 06/15/22 05:30 115/80 06/15/22 05:15 81 06/15/22 05:15 118/78 06/15/22 05:00 87 06/15/22 05:00 115/76 06/15/22 04:45 86 06/15/22 04:45 118/79 06/15/22 04:30 94 H 06/15/22 04:30 122/80 06/15/22 04:15 92 H 06/15/22 04:15 120/83 06/15/22 04:00 85 06/15/22 04:00 122/78 06/15/22 03:45 87 06/15/22 03:45 128/77 06/15/22 03:30 86 06/15/22 03:30 120/77 06/15/22 03:15 86 06/15/22 03:15 126/87 06/15/22 03:00 94 H 06/15/22 03:00 111/82 06/15/22 02:45 89 06/15/22 02:45 111/83 06/15/22 02:30 102 H 06/15/22 02:30 117/70 06/15/22 02:15 93 H 06/15/22 02:15 119/81 06/15/22 02:00 87 06/15/22 02:00 111/77 06/15/22 01:45 84 06/15/22 01:45 125/76 06/15/22 01:30 85 10/04/22 01:30 115/78 06/15/22 01:15 87 06/15/22 01:15 112/83 06/15/22 01:00 82 06/15/22 01:00 136/80 06/15/22 00:45 93 H 06/15/22 00:45 122/79 06/15/22 00:30 96 H 06/15/22 00:30 132/81 06/15/22 00:15 84 06/15/22 00:15 118/81 06/15/22 00:00 93 H 06/15/22 00:00 133/81 06/14/22 23:45 83 06/14/22 23:45 124/82 06/14/22 23:30 79 06/14/22 23:30 126/80 06/15/22 02:53 98.2 F 89 18 117/70 95 06/14/22 23:10 82 06/14/22 23:07 98.2 F 84 18 133/88 91 06/14/22 22:45 87 06/14/22 22:45 133/88 06/14/22 22:30 84 06/14/22 22:30 139/82 06/14/22 22:15 86 06/14/22 22:15 121/88 06/14/22 22:00 91 H 06/14/22 22:00 114/66 06/14/22 21:45 86 06/14/22 21:45 132/77 06/14/22 21:30 79 06/14/22 21:30 121/76 06/14/22 21:15 79 06/14/22 21:15 146/78 H 06/14/22 21:01 75 06/14/22 21:01 144/77 H 06/14/22 21:00 75 06/14/22 20:45 75 06/14/22 20:45 113/79 06/14/22 20:30 79 06/14/22 20:30 142/77 H 06/14/22 20:00 06/14/22 20:15 65 06/14/22 20:15 153/94 H 06/14/22 20:01 72 06/14/22 20:01 142/81 H 06/14/22 20:00 76 06/14/22 19:45 76 10/03/22 19:45 171/95 H 06/14/22 19:30 80 06/14/22 19:30 153/92 H O2 Del Method 06/15/22 05:30 06/15/22 05:30 06/15/22 05:15 06/15/22 05:15 06/15/22 05:00 06/15/22 05:00 06/15/22 04:45 06/15/22 04:45 06/15/22 04:30 06/15/22 04:30 06/15/22 04:15 06/15/22 04:15 06/15/22 04:00 06/15/22 04:00 06/15/22 03:45 06/15/22 03:45 06/15/22 03:30 06/15/22 03:30 06/15/22 03:15 06/15/22 03:15 06/15/22 03:00 06/15/22 03:00 06/15/22 02:45 06/15/22 02:45 06/15/22 02:30 06/15/22 02:30 06/15/22 02:15 06/15/22 02:15 06/15/22 02:00 06/15/22 02:00 06/15/22 01:45 06/15/22 01:45 06/15/22 01:30 06/15/22 01:30 06/15/22 01:15 06/15/22 01:15 06/15/22 01:00 06/15/22 01:00 06/15/22 00:45 06/15/22 00:45 06/15/22 00:30 06/15/22 00:30 06/15/22 00:15 06/15/22 00:15 06/15/22 00:00 06/15/22 00:00 06/14/22 23:45 06/14/22 23:45 06/14/22 23:30 06/14/22 23:30 06/15/22 02:53 Room Air 06/14/22 23:10 06/14/22 23:07 Room Air 06/14/22 22:45 06/14/22 22:45 06/14/22 22:30 06/14/22 22:30 06/14/22 22:15 06/14/22 22:15 06/14/22 22:00 06/14/22 22:00 06/14/22 21:45 06/14/22 21:45 06/14/22 21:30 06/14/22 21:30 06/14/22 21:15 06/14/22 21:15 06/14/22 21:01 06/14/22 21:01 06/14/22 21:00 06/14/22 20:45 06/14/22 20:45 06/14/22 20:30 06/14/22 20:30 06/14/22 20:00 Room Air 06/14/22 20:15 06/14/22 20:15 06/14/22 20:01 06/14/22 20:01 06/14/22 20:00 06/14/22 19:45 06/14/22 19:45 06/14/22 19:30 06/14/22 19:30 PG Care Time/CCT Total # of Minutes Spent Total Time Spent with Patient: Total time spent is greater than 50% in coordination of care (as documented) at patient's floor/unit and/or counseling patient: Coding Level of Care Code None Diagnoses hypertension O16.5
[2022-06-15] MEDS ORDERED: PERFLUTREN LIPID MICROSPHERE (DEFINITY) IV ONE (07:25)
--- NOTE | 2022-06-15 11:48 | XCELERA ---
[id number]
[2022-06-15] MEDS: MAGNESIUM SULFATE / WTR 40 GM/1,000 ML BAG IV SCH (12:44)
--- NOTE | 2022-06-15 12:54 | Hospitalist Progress Note ---
Date of Service June 15, 2022 Assessment & Plan (1) hypertension: Plan: -Continue on PCU -Patient is currently afebrile, Hypertensive, and stable on RA -Hypertension is likely still occurring from previous gestational hypertension, FIRE ALARM OPERATOR is following closely during admission, appreciate their help. Will admit to the PCU due to chest pain for now. -Given 10 mg IV labetalol in the ED with mild improvement to systolics in the 180's, additional doses limited by heart rate 5060s -Received 4 g magnesium sulfate load, continued on 2 g an hour for seizure prophylaxis 24-hour drip complete tonight -Nicardipine drip continued with adequate blood pressure control, discussed with nursing staff. We will continue to attempt to wean throughout the day. If unable to be weaned/remaining hypertensive requirements can consider conversion to nifedipine/felodipine. Remains on PCU while on drip -Ordered Estrada cath, monitor intake and output closely. Continue Estrada while on bedrest and with high-dose magnesium infusion -Monitor on tele, pulse oximetry, and seizure precautions Troponin negative so far, echo normal (2) Pulmonary edema: Plan: -Noted on Chest xray and CTA on admission - BNP mildly elevated, Pro-Oneal negative -Given 40 mg IV lasx in the ED, had a robust 9.7 L of output overnight. Given rapid fluid shift will defer additional Lasix, can give another dose if hypoxia or fluid overload recurs, dose reduce to 20 mg -Currently stable on RA, will continue to monitor on tele and pulse oximetry, will repeat chest xray this evening to ensure her pulmonary edema is improving Mildly hypokalemic, supplementation given this morning (3) Chest pain: Plan: -#Hypertension versus pulmonary edema versus MSK -No acute ECG changes noted -Troponin normal, echo normal, now satting above 94% on room air without tachycardia. Continue to follow CTA negative as noted (4) Lower back pain: Plan: -Was noted on previous admission but continued to have some mid back pain today -CTA negative for thoracic aortic dissection -Will try tylenol and lidocaine patch for now, continue to monitor Admission and Anticipated Discharge Date Admission Date: June 14, 2022 Subjective Continues to have mild headache, improved from prior mild chest tightness but again improved from prior. Discussed echo, LV SF normal without significant valvular disease. Pressure overnight adequately controlled, discussed with nursing staff have attempted to wean nicardipine drip with immediate rise in pressures. We will continue to titrate drip over the course of the day today, continues on mag drip for 24 hours. Review of Systems Review of Systems: All systems reviewed & are unremarkable except as noted in Subjective Physical Exam Physical Exam: General: A&Ox3. NAD. Cooperative. HEENT: Atraumatic, normocephalic. Vision/hearing grossly intact. No visual field cuts, acuity is sharp Pulm: CTAB A&P. -wheezes, -rales, -rhonchi. Symmetrical chest rise. No increase in work of breathing. No respiratory distress. Cardiac: RRR, -mrg. Radial pulses intact and symmetrical. Abdominal: C/S incision C/C/I, without erythema/discharge/dehiscence Extremities: Warm, dry. Well perfused Results & Data Results & Data ([facility]) Vital Signs (Past 12 Hours) Vital Signs Temp Pulse Pulse Resp BP BP Pulse Ox 06/15/22 12:08 36.6 C 85 18 130/88 96 06/15/22 07:58 36.8 C 90 18 129/86 99 06/15/22 05:30 86 06/15/22 05:30 115/80 06/15/22 05:15 81 06/15/22 05:15 118/78 06/15/22 05:00 87 06/15/22 05:00 115/76 06/15/22 04:45 86 06/15/22 04:45 118/79 06/15/22 04:30 94 H 06/15/22 04:30 122/80 06/15/22 04:15 92 H 06/15/22 04:15 120/83 06/15/22 04:00 85 06/15/22 04:00 122/78 06/15/22 03:45 87 06/15/22 03:45 128/77 06/15/22 03:30 86 06/15/22 03:30 120/77 06/15/22 03:15 86 06/15/22 03:15 126/87 06/15/22 03:00 94 H 06/15/22 03:00 111/82 06/15/22 02:45 89 06/15/22 02:45 111/83 06/15/22 02:30 102 H 10/04/22 02:30 117/70 06/15/22 02:15 93 H 06/15/22 02:15 119/81 06/15/22 02:00 87 06/15/22 02:00 111/77 06/15/22 01:45 84 06/15/22 01:45 125/76 06/15/22 01:30 85 06/15/22 01:30 115/78 06/15/22 01:15 87 06/15/22 01:15 112/83 06/15/22 01:00 82 06/15/22 01:00 136/80 06/15/22 02:53 36.8 C 89 18 117/70 95 O2 Del Method 06/15/22 12:08 Room Air 06/15/22 07:58 Room Air 06/15/22 05:30 06/15/22 05:30 06/15/22 05:15 06/15/22 05:15 06/15/22 05:00 06/15/22 05:00 06/15/22 04:45 06/15/22 04:45 06/15/22 04:30 06/15/22 04:30 06/15/22 04:15 06/15/22 04:15 06/15/22 04:00 06/15/22 04:00 06/15/22 03:45 06/15/22 03:45 06/15/22 03:30 06/15/22 03:30 06/15/22 03:15 06/15/22 03:15 06/15/22 03:00 06/15/22 03:00 06/15/22 02:45 06/15/22 02:45 06/15/22 02:30 06/15/22 02:30 06/15/22 02:15 06/15/22 02:15 06/15/22 02:00 06/15/22 02:00 06/15/22 01:45 06/15/22 01:45 06/15/22 01:30 06/15/22 01:30 06/15/22 01:15 06/15/22 01:15 06/15/22 01:00 06/15/22 01:00 06/15/22 02:53 Room Air PG Care Time/CCT Total # of Minutes Spent Total Time Spent with Patient: Total time spent is greater than 50% in coordination of care (as documented) at patient's floor/unit and/or counseling patient: Coding Level of Care Code 87100 Subseq Hosp Care Lvl 3 Diagnoses hypertension O16.5 Pulmonary edema J81.1 Chest pain R07.9 Lower back pain M54.5
--- NOTE | 2022-06-15 14:08 | Obstetrical Progress Note ---
Date of Service June 15, 2022 Assessment & Plan (1) hypertension: Plan: -pt feeling much better than last night, has been diuresing very well -ok to d/c mag after 24 hrs (this afternoon around 4-5pm). Ok to remove richardson and have regular diet from OB standpoint -rec repeat LFT today as was just slightly elevated yesterday, remainder of labs wnl -discussed oral anti-hypertensives with medicine team, discussed typically use labetalol or nifedipine but would defer to medicine - appreciate their recs. They said plan to transition to orals this evening and titrate down drip with goal to be completely on orals in the AM and transition back to floor status then -will continue to follow closely Admission and Anticipated Discharge Date Admission Date: June 14, 2022 Subjective Met w/ pt this afternoon. She is feeling much blanca from CP, SOB standpoint. BP controlled on nicardipine drip. Feeling ok on mag 2g/hr for seizure prophylaxis due to pre-eclampsia w/ severe features. Results & Data ([facility]) Vital Signs (Past 12 Hours) Vital Signs Temp Pulse Pulse Resp BP BP Pulse Ox 06/15/22 12:08 97.9 F 85 18 130/88 96 06/15/22 07:58 98.2 F 90 18 129/86 99 06/15/22 05:30 86 06/15/22 05:30 115/80 06/15/22 05:15 81 06/15/22 05:15 118/78 06/15/22 05:00 87 06/15/22 05:00 115/76 06/15/22 04:45 86 06/15/22 04:45 118/79 06/15/22 04:30 94 H 06/15/22 04:30 122/80 06/15/22 04:15 92 H 06/15/22 04:15 120/83 06/15/22 04:00 85 06/15/22 04:00 122/78 06/15/22 03:45 87 06/15/22 03:45 128/77 06/15/22 03:30 86 06/15/22 03:30 120/77 06/15/22 03:15 86 06/15/22 03:15 126/87 06/15/22 03:00 94 H 06/15/22 03:00 111/82 06/15/22 02:45 89 06/15/22 02:45 111/83 06/15/22 02:30 102 H 06/15/22 02:30 117/70 06/15/22 02:15 93 H 06/15/22 02:15 119/81 06/15/22 02:53 98.2 F 89 18 117/70 95 O2 Del Method 06/15/22 12:08 Room Air 06/15/22 07:58 Room Air 06/15/22 05:30 06/15/22 05:30 06/15/22 05:15 06/15/22 05:15 06/15/22 05:00 06/15/22 05:00 06/15/22 04:45 06/15/22 04:45 06/15/22 04:30 06/15/22 04:30 06/15/22 04:15 06/15/22 04:15 06/15/22 04:00 06/15/22 04:00 06/15/22 03:45 06/15/22 03:45 06/15/22 03:30 06/15/22 03:30 06/15/22 03:15 06/15/22 03:15 06/15/22 03:00 06/15/22 03:00 06/15/22 02:45 06/15/22 02:45 06/15/22 02:30 06/15/22 02:30 06/15/22 02:15 06/15/22 02:15 06/15/22 02:53 Room Air PG Care Time/CCT Total # of Minutes Spent Total Time Spent with Patient: Total time spent is greater than 50% in coordination of care (as documented) at patient's floor/unit and/or counseling patient: Coding Level of Care Code None Diagnoses hypertension O16.5
[2022-06-15 14:51] LABS: Albumin Level 3.4 gm/dl (3.4-5.0); Bilirubin Direct 0.2 mg/dl (0-0.2); Bilirubin,Total 0.4 mg/dl (0.2-1.0); Total Protein 5.9 gm/dl (6.0-8.3)
[2022-06-15] MEDS ORDERED: NIFEdipine EXTENDED REL 30 MG TABCR PO SCH (16:00)
[2022-06-15] MEDS ORDERED: NIFEdipine EXTENDED REL 30 MG TABCR PO STA (17:58)
[2022-06-16] MEDS: niCARdipine 25 MG in SODIUM CHLORIDE 0.9% 240 ML IV SCH (06:25)
[2022-06-16 06:39] LABS: Basophils # (auto) 0.04 K/uL (0-0.2); Basophils % (auto) 0.4 %; Eosinophils # (auto) 0.16 K/uL (0-0.50); Eosinophils % (auto) 1.4 %; Hematocrit (blood only) 37.1 % (34.1-44.9); Hemoglobin 12.1 g/dl (12.0-16.0); Immature Granulocytes # (auto) 0.17 K/uL (0.00-0.02); Immature Granulocytes % (auto) 1.5 %; Lymphocytes # (auto) 1.24 K/uL (1.2-3.4); Lymphocytes % (auto) 11.2 %; Mean Corpuscular Hemoglobin 26.2 pg (25.0-34.0); Mean Corpuscular Hgb Conc 32.6 g/dL (32.0-36.0); Mean Corpuscular Volume 80.5 fL (80.0-100.0); Mean Platelet Volume 10.1 fL (9.4-12.3); Monocytes # (auto) 0.63 K/uL (0.24-0.82); Monocytes % (auto) 5.7 %; Neutrophils # (auto) 8.84 K/uL (1.4-6.5); Neutrophils % (auto) 79.8 %; Platelet Count 420 K/uL (130-400); RDW Coefficient of Variation 14.4 % (11.5-14.5); RDW Standard Deviation 41.5 fL (36.4-46.3); Red Blood Count 4.61 M/uL (3.93-5.22); White Blood Count 11.08 K/ul (4.8-10.8)
[2022-06-16 07:12] LABS: Albumin Globulin Ratio 1.2 (0.9-2); Albumin Level 3.3 gm/dl (3.4-5.0); BUN Creatinine Ratio 15.6 (10-20); Bilirubin Direct 0.1 mg/dl (0-0.2); Bilirubin,Total 0.5 mg/dl (0.2-1.0); Calcium 7.7 mg/dl (8.5-10.1); Creatinine Clr Calc Pharmacy 116.2 ml/min; Est GFR (African American) 98.7 ml/min; Est GFR (Non-African American) 85.2 ml/min; Globulin 2.7 gm/dl (2.5-4.0); Potassium 3.6 mmol/L (3.5-5.1)
--- NOTE | 2022-06-16 07:21 | Hospitalist Progress Note ---
Date of Service June 16, 2022 Assessment & Plan (1) hypertension: Plan: PERIPHERAL VASCULAR TECH is following closely during admission, transitioned off gtt to po -Given 10 mg IV labetalol in the ED with mild improvement to systolics in the 180's, additional doses limited by heart rate 5060s -Received 4 g magnesium sulfate load, continued on 2 g an hour for seizure prophylaxis 24-hour drip completed -Nicardipine drip discontinued 06/16/22 with adequate blood pressure control, will move to obgyne and escalate procardia, hydralazine prn for backup Troponin negative x5 echo normal systolic function (2) Pulmonary edema: Plan: -Noted on Chest xray and CTA on admission - BNP mildly elevated, Pro-Oneal negative -Given 40 mg IV lasx in the ED, had a robust 9.7 L of output overnight. Given rapid fluid shift no additional Lasix, -Currently stable (3) Chest pain: Plan: -#Hypertension versus pulmonary edema versus MSK -No acute ECG changes noted -Troponin normal, echo normal, CTA negative for PE as noted (4) Lower back pain: Plan: -Was noted on previous admission but continued to have some mid back pain today -CTA negative for thoracic aortic dissection -tylenol and lidocaine patch Admission and Anticipated Discharge Date Admission Date: June 14, 2022 Subjective pt states she feels well and has no further chest pain and no further shortness of breath. She denies headache and states she is not breast feeding Review of Systems Review of Systems: no distress or fatigue no headache, no visual changes no speech or swallowing issues no chest pain, pressure or palpitations no shortness of breath, cough or wheezes no abdominal pain, nausea or vomiting, diarrhea or constipation no dysuria, hematuria or frequency no focal joint pain or swelling no back pain, CVA tenderness or radicular pain no bruising, bleeding or rashes no focal signs of weakness or numbness or altered sensation no complaints of anxiety or depression.. Physical Exam Physical Exam: The patient appeared well nourished and normally developed. Vital signs as documented. Head exam is normocephalic atraumatic Neck is without JVD, thyromegaly, or carotid bruits. Lungs are clear to auscultation, no focal loss of breath sounds Cardiac exam, Rhythm is regular.. No murmurs, rubs or gallops. Abdominal exam reveals normal bowel sounds, soft non tender, no masses still some vaginal discharge but lessening Extremities are nonedematous and both pedal pulses are present Neurologic exam is alert and oriented, no focal loss of strength or sensation Skin is without bruises or rashes Psychologically is without concerns for anxiety or depression.. Results & Data Results & Data ([facility]) Vital Signs (Past 12 Hours) Vital Signs Temp Pulse Pulse Resp BP Pulse Ox O2 Del Method 06/16/22 07:14 97.9 F 88 20 129/106 H 97 Room Air 06/16/22 06:43 91 H 133/98 06/16/22 05:00 89 146/92 H 06/16/22 04:00 98.8 F 88 17 135/99 95 Room Air 06/16/22 03:00 80 138/92 06/16/22 02:00 83 136/93 06/16/22 01:00 77 138/86 06/15/22 20:00 Room Air 06/16/22 00:31 74 06/15/22 23:00 94 H 140/97 06/15/22 22:00 90 126/98 06/15/22 21:00 159/85 H 06/16/22 00:00 98.1 F 90 17 154/92 H 96 Room Air 06/15/22 20:00 99.3 F 94 H 16 131/92 96 Room Air PG Care Time/CCT Total # of Minutes Spent Total Time Spent with Patient: Total time spent is greater than 50% in coordination of care (as documented) at patient's floor/unit and/or counseling patient: Coding Level of Care Code 82816 Subseq Hosp Care Lvl 3 Diagnoses hypertension O16.5 Pulmonary edema J81.1 Chest pain R07.9 Lower back pain M54.5
[2022-06-16] MEDS ORDERED: hydrALAZINE HCL 20 MG/ML VIAL IV PRN (07:26)
--- NOTE | 2022-06-16 07:33 | Obstetrical Progress Note ---
Date of Service June 16, 2022 Assessment & Plan (1) hypertension: Plan: POD6 s/p pLTCS, readmitted w/ pp pre-eclampsia w/ SF -s/p 24 hours of magnesium, excellent diuresis during that time. Good UOP overnight, labs wnl -currently on nicardipine drip by medicine, appreciate their assistance. Procardia XL began last evening by medicineand given 60mg while beginning weaning down on drip. Appreciate medicine input -doing well from post-op standpoint -once nicardipine drip is able to be turned off and only on oral anti- hypertensives, ok to move to pp floor and monitor to make sure doing ok on oral regimen Admission and Anticipated Discharge Date Admission Date: June 14, 2022 Subjective Pt feeling much better now that magnesium is off, is still on nicardipine drip. Denies THAPA, vision change. Notes very slight CP/SOB with getting up to go to bathroom but has only gotten up twice and it was much improved the second time. Had large amt of diuresis yesterday, good UOP even after richardson removed. Physical Exam Respiratory: normal respiratory effort; no respiratory distress and no labored breathing Gastrointestinal (Abdomen): Inspection/Auscultation: abdomen normal to inspection and + abdominal surgical scar (c/d/i); abdomen not distended Percussion/Palpation: abdomen soft; abdomen nontender and no guarding Results & Data ([facility]) Vital Signs (Past 12 Hours) Vital Signs Temp Pulse Pulse Resp BP Pulse Ox O2 Del Method 06/16/22 07:14 97.9 F 88 20 129/106 H 97 Room Air 06/16/22 06:43 91 H 133/98 06/16/22 05:00 89 146/92 H 06/16/22 04:00 98.8 F 88 17 135/99 95 Room Air 06/16/22 03:00 80 138/92 06/16/22 02:00 83 136/93 06/16/22 01:00 77 138/86 06/15/22 20:00 Room Air 06/16/22 00:31 74 06/15/22 23:00 94 H 140/97 06/15/22 22:00 90 126/98 06/15/22 21:00 159/85 H 06/16/22 00:00 98.1 F 90 17 154/92 H 96 Room Air 06/15/22 20:00 99.3 F 94 H 16 131/92 96 Room Air PG Care Time/CCT Total # of Minutes Spent Total Time Spent with Patient: Total time spent is greater than 50% in coordination of care (as documented) at patient's floor/unit and/or counseling patient: Coding Level of Care Code None Diagnoses hypertension O16.5
[2022-06-16] MEDS ORDERED: NIFEdipine EXTENDED REL 30 MG TABCR PO SCH ×2 (08:30→18:00)
[2022-06-16] MEDS ORDERED: NIFEdipine EXTENDED REL 30 MG TABCR PO STA (21:19)
--- NOTE | 2022-06-16 21:30 | Communication Note ---
Date of Service: June 16, 2022 called by nursing re: orders and plan. have not had call from medicine but understood from signout this am that once pt was off drip in PCU was coming to [facility]. I reviewed orders in computer with nurse and seems pt to get stat po dose of nifedipine and then dosing qam is written by medicine team. Patient asking nurse about d/c and relayed that will depend on her adequate bp response to po meds per primary service. She is currently asymptomatic. All reassuring. Will need to evaluate bps serially. Nursing to relay to pt and call with any needs.
--- NOTE | 2022-06-17 07:17 | Obstetrical Progress Note ---
Date of Service June 17, 2022 Assessment & Plan (1) hypertension: (2) care following delivery: Plan doing well this am, stable. bps are reasonable range and has po procardia ordered for this am. asymptomatic. rec to pt that we monitor bps longer today after po am dose of med and if bp in non severe range we would be ok with dc home and f/u in our office one week for bp check. parameters to call sooner reviewed with pt in detail. appreciate medicine care and recommendations. Subjective Ambulation: ambulating normally Voiding: no voiding problems Diet Tolerance:: regular diet Lochia:: Small Feeding Type:: bottle feeding denies baez, visual change. feels alot better. incision doing well. hoping to go home. Constitutional: + as per Subjective / HPI Physical Exam Constitutional WD/WN, vitals as above Respiratory normal respiratory effort, lungs clear to auscultation Cardiovascular Rate/Rhythm: regular rate and regular rhythm Gastrointestinal (Abdomen) Inspection/Auscultation: abdomen normal to inspection and + abdominal surgical incision (c/d/i) Percussion/Palpation: abdomen soft Fundus firm 3cm down Musculoskeletal nt calves no edema Neurologic grossly normal Psychiatric A+Ox3, euthymic affect Results & Data ([facility]) Vital Signs (Past 12 Hours) Vital Signs Temp Pulse Pulse Resp BP O2 Del Method 06/17/22 04:45 98.6 F 78 16 151/89 H 06/17/22 00:20 98.4 F 62 18 145/91 H 06/16/22 21:15 98.2 F 76 18 147/94 H 06/16/22 19:15 Room Air 06/16/22 20:50 73 159/94 H 06/16/22 20:00 78 140/108 H
[2022-06-17] MEDS ORDERED: NIFEdipine EXTENDED REL 30 MG TABCR PO SCH (09:00)
--- NOTE | 2022-06-17 18:54 | Discharge Summary ---
Date of Service June 17, 2022 Admission HPI Per Admitting Provider Consuelo is a 32 yr female with a PMH significant for recent admission due to gestational HTN requiring Primary Low Transverse Section on 06/10/22 who presented to the [facility] ED on 06/14/22 with a chief complaint of chest tightness. Per chart review, the patient was admitted from 06/09/22 to 06/12/22 with REAL ESTATE OFFICE SUPERVISOR as the primary team. The patient underwent delivery on 06/10/22 due to her issues with Gestational Hypertension. Per the documentation, the patient had no complications and tolerated the procedure well. She was discharged home on Tylenol and Motrin for pain control and was instructed to finish her vitamins. The patient states that yesterday afternoon she started developing substernal chest discomfort which she states was it's highest at a 5/10 but is currently a 2-3/10. She describes the chest discomfort as a dull/aching pain which is exacerbated with movement. She denies the pain radiating to her arms or neck but does note some mid back pain which started around the same time yesterday. The patient states that her surgical site has been healing well, she notes so hematuria but thinks it is from her recent procedure. She denies any dysuria since discharge. Besides these symptoms the patient does not have any other complaints at this time, she denies recent fevers, chills, headache, changes in vision, hearing, taste, and smell, abdominal pain, vomiting, dysuria, and recent falls. In the ED the patient was found to be hypertensive at 217/119, afebrile and stable on room air. Labs were significant for stable Hgb, D-dimer of 3210, AST of 55, Alk phos of 156. Chest xray showed "Reticular interstitial opacities are suggestive of pulmonary edema. An interstitial pneumonia could appear similarly.". Venous doppler of the LLE was negative for DVT. CTA of the chest was negative for PE but did show "Interlobular septal thickening consistent with interstitial pulmonary edema. Scattered airspace opacities throughout the lungs likely reflect alveolar edema. A superimposed infectious process is considered less likely Moderate right and small left pleural effusions". The CTA was negative for thoracic aortic dissection. Prior to admission the patient was given 10 mg IV labetalol, and 40 mg IV lasix. Principal Diagnosis Hypertensive emergency hypertension Discharge Exam The patient appeared stable Vital signs as documented. Lungs are clear to auscultation and appear unlabored Cardiac exam, Rhythm is regular.. No murmurs, rubs or gallops. Abdominal exam reveals normal bowel sounds, soft non tender, no masses Extremities are nonedematous and both pedal pulses are normal. Neurologic exam is alert and oriented, no focal loss of strength or sensation Skin is without bruises or rashes Psychologically is without concerns for anxiety or depression. Discharge Data Allergies Allergy/AdvReac Type Severity Reaction Status Date / Time bupropion Allergy Headache Verified 06/08/22 15:57 glatiramer (copolymer 1) Allergy heart Verified 06/08/22 15:57 [From Copaxone] palpitations Consultations 06/14/22 15:57 ED Decision to Admit Stat 06/15/22 13:48 Consult Obstetrics Routine Ordered Studies 06/14/22 13:15 US venous doppler LE LT Stat 06/14/22 13:58 CT angio chest PE protocol Stat Hospital Course (1) hypertension: REAL ESTATE OFFICE SUPERVISOR is following closely during admission, transitioned off gtt to po -Given 10 mg IV labetalol in the ED with mild improvement to systolics in the 180's, additional doses limited by heart rate 5060s -Received 4 g magnesium sulfate load, continued on 2 g an hour for seizure prophylaxis 24-hour drip completed -Nicardipine drip discontinued 06/16/22 with adequate blood pressure control, improved blood pressure with higher doses of procardia, will have the patient discharged on Procardia XL 60 Troponin negative x5 echo normal systolic function (2) Pulmonary edema: -Noted on Chest xray and CTA on admissionresolved - BNP mildly elevated, Pro-Tereso negative -Given 40 mg IV lasx in the ED, had a robust 9.7 L of output overnight. Given rapid fluid shift no additional Lasix, -Currently stable (3) Chest pain: -Resolved with treatment of hypertensive urgency suspect was demand ischemia due to extreme hypertension -No acute ECG changes noted -Troponin normal, echo normal, CTA negative for PE as noted (4) Lower back pain: -Was noted on previous admission but continued to have some mid back pain today -CTA negative for thoracic aortic dissection -tylenol and lidocaine patch Total Time Total Time Spent Total Time Spent (In Minutes): It required greater than 30 minutes to prepare this patient for discharge Discharge Plan Discharge Items Patient Disposition: Home - Self-Care Reason For Visit: PPN HTN Discharge Diagnosis: hypertensive urgency post hypertension Activity: Per Instructions section Non-emergency contact: Primary Care Provider Call non-emergency contact if: your symptoms worsen Follow-up/Referrals: Gabriela Cuevas MD [Primary Care Provider] - Diet: Low Sodium (2gm) Addtl Attending Provider Instructions: for your blood pressure there are some things you can do to help such as eating a low salt diet, avoiding caffeine and considering low impact gradual cardio type exercised to help reduce your blood pressure, you can begin by walking even with your baby in a stroller. Please follow up with your OB/GYNE and your primary care as you may eventually get off of your blood pressure medicine. Pending Studies at Discharge: No Stand-Alone Forms: My [facility] [employer], Smoking Cessation Medications and DC Order Prescriptions: New nifedipine [Procardia XL] 30 mg Tablet Extended Release 24hr 60 mg PO QAM Qty: 30 3RF Continued prenat.vits,tereso,[id number] Tablet 1 tab PO DAILY oxycodone-acetaminophen [Percocet] 5-325 mg tablet 1 tab PO Q6H PRN (Reason: pain) Qty: 20 0RF Discharge Orders: Discharge Order (Routine); Ordered 06/17/22 Ordered By: Layton Hancock/Other Patient Handouts: Understanding Deep Vein Thrombosis Admission Data Admit Date/Time: 06/14/22 16:05 Attending Provider: Layton Husain Admit Provider: Bernardino Carrera Primary Care Provider: Gabriela Cuevas Other Providers: Bernardino Carrera ; Kiana Marsh Other Interventions: Discharge Summary Assessment (RN) Last Done: 06/17/22 12:30 Coding Level of Care Code D/C DAY MANAGEMENT >30 MINS Diagnoses hypertension O16.5 Pulmonary edema J81.1 Chest pain R07.9 Lower back pain M54.5
== END 2022-06-17 12:40 | disposition home or self-care (01) | DRG 776 ==
LOC: ED 12:10 → 2E 16:05 → SUATTDRO 16:05 → 2E 17:56 → 4E2 06-16 21:11
DX: I16.1 Hypertensive emergency; Z88.8 Allergy status to other drugs, medicaments and biological substances; J81.1 Chronic pulmonary edema; M54.50 Low back pain, unspecified; O16.5 Unspecified maternal hypertension, complicating the puerperium